=== PATIENT | female | born 1955 | race Asian ===

== ENCOUNTER 2017-03-30 16:20 | Emergency (ER) | payer BC, OTHER ==
[~2017-03-30] VITALS: Ht 160 cm; Wt 66.6 kg
[~2017-03-30 16:20] MED LIST: ALLO300T2 PO; CIPR-193 PO; LOSA50TA6 PO; METO-448 PO; NIFE60TA36 PO; SEVE800T10 PO; VANC1FRO2 IV
[2017-03-30 16:32] VITALS: Ht 160 cm; Wt 66.6 kg
[2017-03-30] MEDS ORDERED: ONDANSETRON (ODT) 4 MG TAB ODT STA (20:17)
[2017-03-30] MEDS ORDERED: HYDROCODONE/APAP (10/325) TAB PO ONE (20:30)
[2017-03-30 20:37] LABS: ADD SCAN DIFF NO
[2017-03-30 20:42] LABS: BASOPHIL # 0.2 10^3/ul (0.0-0.1); BASOPHILS % 1.2 % (0.0-2.0); EOSINOPHILS # 0.5 10^3/ul (0.0-0.5); EOSINOPHILS % 3.5 % (0.0-7.0); HEMATOCRIT 36.2 % (37.0-47.0); HEMOGLOBIN 11.3 g/dl (12.0-16.0); LYMPHOCYTES # 2.8 10^3/ul (0.8-2.9); LYMPHOCYTES % 20.6 % (15.0-51.0); MEAN CORPUSCULAR HEMOGLOBIN 31.1 pg (29.0-33.0); MEAN CORPUSCULAR HGB CONC 31.2 g/dl (32.0-37.0); MEAN CORPUSCULAR VOLUME 99.7 fl (82.0-101.0); MEAN PLATELET VOLUME 9.2 fl (7.4-10.4); MONOCYTE # 1.2 10^3/ul (0.3-0.9); MONOCYTES % 8.5 % (0.0-11.0); NEUTROPHILS % 65.8 % (39.0-77.0); PLATELET COUNT 338 10^3/UL (140-415); RED BLOOD COUNT 3.63 10^6/ul (4.20-5.40); RED CELL DISTRIBUTION WIDTH 13.5 % (11.5-14.5); WHITE BLOOD COUNT 13.7 10^3/ul (4.8-10.8)
[2017-03-30] MEDS ORDERED: LORA10TA3 PO (20:57)
[2017-03-30 21:04] LABS: INR 0.99; PROTIME 13.1 Sec (12.2-14.2)
[2017-03-30 21:05] LABS: PARTIAL THROMBOPLASTIN TIME 35.1 Sec (25.0-35.0)
[2017-03-30 21:07] LABS: ALBUMIN 4.5 g/dl (3.3-4.9)
[2017-03-30 21:08] LABS: POTASSIUM 4.3 mmol/L (3.5-5.1)
[2017-03-30 21:10] LABS: ALBUMIN/GLOBULIN RATIO 0.78; BILIRUBIN,INDIRECT 0.1 mg/dl (0-1.1); BILIRUBIN,TOTAL 0.1 mg/dl (0.2-1.3); CALCIUM 8.9 mg/dl (8.4-10.2); CREATININE 7.58 mg/dl (0.44-1.00); TOTAL PROTEIN 10.2 g/dl (6.1-8.1)
--- NOTE | 2017-03-30 21:39 | RADRPT ---
PROCEDURE: XR Chest. CLINICAL INDICATION: Right chest wall pain. TECHNIQUE: Single frontal view. COMPARISON: 09/09/2016. FINDINGS: There is mild atelectasis at the right lung base. The lungs are otherwise clear. The heart is mildly enlarged. There is no pleural effusion. There is no pneumothorax. IMPRESSION: 1. Mild right basilar atelectasis. 2. Mild cardiomegaly. 3. Otherwise normal chest x-ray. RPTAT: QQ .Omar Mg MD, Date Time Electronically viewed and signed by .Omar Mg MD, on 03/30/2017 21:38 .R/
[2017-03-30 21:40] VITALS: TEMP 98.1
[2017-03-30] MEDS ORDERED: HYDR-902 PO (21:43)
--- NOTE | 2017-03-30 21:44 | ERD ---
ER Documentation Chief Complaint Date/Time DATE: 03/30/17 TIME: 21:44 Chief Complaint RIGHT FLANK PAIN ONSET LAST TUESDAY EVENNING, ON DIALYSIS. SOB HPI Patient is a 61-year-old female with breast cancer, anemia, and dialysis who presents with right-sided rib pain. The symptoms started on Tuesday. The patient denies trauma. She has had no rash. She has had no recent fevers. The patient tried Tylenol. She had dialysis this morning. Upon review of old medical records this is the patient's fifth visit to the ER since 2016. Patient does have a primary doctor. Her oncologist wanted her to get laboratory studies checked and she came with a list of labs that needed checking. ROS All systems reviewed and are negative except as per history of present illness. Medications Home Meds Active Scripts Hydrocodone/Acetaminophen ([place] 10-325 Tablet) 1 Each Tablet, 1 TAB PO Q6H Y for PAIN, #7 TAB Prov:MUAS SENIOR MD 03/30/17 Sevelamer Hcl* (Renagel*) 800 Mg Tablet, 3200 MG PO WITH MEALS for 30 Days, TAB Prov:MACIE TAVARES V. RESIDENT CARE COORDINATOR 09/13/16 Reported Medications Loratadine* (Loratadine*) 10 Mg Tablet, 10 MG PO DAILY, #30 TAB 03/30/17 Metoprolol Tartrate* (Lopressor*) 25 Mg Tab, 25 MG PO DAILY, #60 TAB 09/09/16 Discontinued Reported Medications Allopurinol* (Allopurinol*) 300 Mg Tablet, 300 MG PO DAILY, TAB 09/09/16 Nifedipine* (Adalat CC*) 60 Mg Tablet.sa, 60 MG PO DAILY, #30 TAB.SA 09/09/16 Losartan Potassium* (Losartan Potassium*) 50 Mg Tablet, 50 MG PO DAILY, TAB 09/09/16 Discontinued Scripts Ciprofloxacin Hcl* (Ciprofloxacin Hcl*) 250 Mg Tablet, 250 MG PO DAILY@06 for 12 Days, TAB Cipro 250mg po Daily until last day 09/24/16 Prov:MACIE TAVARES V. RESIDENT CARE COORDINATOR 09/13/16 Vancomycin/0.9 % Sod Chloride (Vancomycin 1 G/200Ml-0.9% NaCl) 1 Gm/200 Ml Froz.piggy, 1 GM IV Q96H for 25 Days Vancomycin IV 1GM IVPB Q96H to be given at HD center by HD nurse for total 4 weeks until last date: . Prov:MACIE TAVARES V. SUSIE 09/13/16 Allergies Allergies: Coded Allergies: adhesive tape (Unverified Allergy, Unknown, 03/30/17) PMhx/Soc History of Surgery: No Anesthesia Reaction: No Hx Neurological Disorder: No Hx Respiratory Disorders: No Hx Cardiac Disorders: No Hx Psychiatric Problems: No Hx Miscellaneous Medical Probl: Yes ( Anemia, R breast CA, Dialysis) Hx Alcohol Use: No Hx Substance Use: No Hx Tobacco Use: No Smoking Status: Never smoker FmHx Family History: diabetes Physical Exam Vitals Vital Signs Date Time Temp Pulse Resp B/P Pulse Ox O2 Delivery O2 Flow Rate FiO2 03/30/17 21:55 83 18 119/81 95 Room Air 03/30/17 21:40 98.1 81 18 119/81 95 03/30/17 16:32 98.1 97 20 127/81 99 Physical Exam Const: Mild distress secondary to pain Head: Atraumatic Eyes: Normal Conjunctiva ENT: Normal External Ears, Nose and Mouth. Neck: Full range of motion..~ No meningismus. Resp: Clear to auscultation bilaterally Cardio: Regular rate and rhythm, no murmurs, tenderness to the chest wall to the right lateral ribs Abd: Soft, non tender, non distended. Normal bowel sounds Skin: No petechiae or rashes Back: No midline or flank tenderness Ext: No cyanosis, or edema Neur: Awake and alert Psych: Normal Mood and Affect Result Diagram: 03/30/17201903/30/172019 Results 24 hrs Laboratory Tests Test 03/30/17 20:20 White Blood Count 13.710^3/ul Red Blood Count 3.6310^6/ul Hemoglobin 11.3g/dl Hematocrit 36.2% Mean Corpuscular Volume 99.7fl Mean Corpuscular Hemoglobin 31.1pg Mean Corpuscular Hemoglobin Concent 31.2g/dl Red Cell Distribution Width 13.5% Platelet Count 88014^3/UL Mean Platelet Volume 9.2fl Neutrophils % 65.8% Lymphocytes % 20.6% Monocytes % 8.5% Eosinophils % 3.5% Basophils % 1.2% Nucleated Red Blood Cells % 0.0/100WBC Neutrophils # 9.010^3/ul Lymphocytes # 2.810^3/ul Monocytes # 1.210^3/ul Eosinophils # 0.510^3/ul Basophils # 0.210^3/ul Nucleated Red Blood Cells # 0.010^3/ul Prothrombin Time 13.1Sec Prothrombin Time Ratio 1.0 INR International Normalized Ratio 0.99 Activated Partial Thromboplast Time 35.1Sec Sodium Level 142mmol/L Potassium Level 4.3mmol/L Chloride Level 92mmol/L Carbon Dioxide Level 30mmol/L Anion Gap 24 Blood Urea Nitrogen 29mg/dl Creatinine 7.58mg/dl Glucose Level 101mg/dl Calcium Level 8.9mg/dl Total Bilirubin 0.1mg/dl Direct Bilirubin 0.00mg/dl Indirect Bilirubin 0.1mg/dl Gamma Glutamyl Transpeptidase 52IU/L Aspartate Amino Transf (AST/SGOT) 29IU/L Alanine Aminotransferase (ALT/SGPT) 39IU/L Alkaline Phosphatase 145IU/L Lactate Dehydrogenase 472IU/L Total Protein 10.2g/dl Albumin 4.5g/dl Globulin 5.70g/dl Albumin/Globulin Ratio 0.78 Lipase 435U/L Carcinoembryonic Antigen 3.0ng/ml Current Medications Medications (Trade) Dose Ordered Sig/Shweta Route PRN Reason Start Time Stop Time Status Last Admin Dose Admin Acetaminophen/ Hydrocodone Bitart ([place] ()) 1 tab ONCE ONCE PO 03/30/17 20:30 03/30/17 20:31 DC 03/30/17 20:29 Ondansetron HCl (Zofran Odt) 4 mg ONCE STAT ODT 03/30/17 20:17 03/30/17 20:22 DC 03/30/17 20:27 Procedures/MDM EKG read by me: Rate/Rhythm: Sinus tachycardia rate of 102 Intervals: Normal Impression: Tachycardia without ischemia Chest x-ray shows no pneumonia or pneumothorax per radiology. Patient is a 61-year-old female presents with right-sided chest wall pain. There is no sign of rash. The laboratory studies are normal. The patient has an x-ray which shows no signs of pneumonia or pneumothorax. She feels better for [place]. At this point I doubt acute coronary syndrome, pneumonia, pneumothorax, pulmonary embolism, or aortic dissection. The patient will need close follow-up with the primary doctor within 24-48 hours. She can return sooner for any worsening symptoms. Departure Diagnosis: Primary Impression: Rib pain Additional Impressions: Anemia in chronic kidney disease Chronic renal failure Chronic kidney disease stage: unspecified stage Qualified Code: N18.9 - Chronic renal failure, unspecified stage Condition: Fair Patient Instructions: Chest Pain, Uncertain Cause Referrals: Your doctor Additional Instructions: Call your primary care doctor TOMORROW for an appointment during the next 1-2 days.See the doctor sooner or return here if your condition worsens before your appointment time. MUSA SENIOR MD March 30, 2017 21:44
[2017-03-30 21:55] VITALS: BP 119/81; PULSE 83; RESP 18
== END 2017-03-30 21:55 | disposition home or self-care (01) ==
LOC: E/R 16:20
DX: R07.81 Pleurodynia (principal); N18.9 Chronic kidney disease, unspecified; D64.9 Anemia, unspecified; Z99.2 Dependence on renal dialysis; Z85.3 Personal history of malignant neoplasm of breast
CPT/HCPCS: 36415; 71010; 80053; 82378; 82977; 83615; 83690; 85025; 85610; 85730; 86300; 93005

== ENCOUNTER 2017-08-10 18:39 | Inpatient (IN) | payer BC, OTHER ==
[~2017-08-10] VITALS: Ht 160 cm; Wt 68.5 kg
[~2017-08-10 18:39] MED LIST changes: -ALLO300T2 PO; -CIPR-193 PO; +HYDR-902 PO; +LORA10TA3 PO; -LOSA50TA6 PO; -NIFE60TA36 PO; -VANC1FRO2 IV
[2017-08-10 18:57] VITALS: Ht 160 cm; Wt 68.5 kg
[2017-08-10] MEDS ORDERED: morphine 4 MG/ML VIAL IV STA (19:42)
[2017-08-10] MEDS ORDERED: ONDANSETRON 4 MG INJ IV STA (19:42)
--- NOTE | 2017-08-10 19:53 | ERD ---
ER Documentation Chief Complaint Date/Time DATE: 08/10/17 TIME: 19:49 Chief Complaint left shoulder pain x1week HPI 61-year-old female presents here in emergency department for complaints of left shoulder pain for one week now. Patient describes the pain sharp pain, radiates from her left shoulder to the left arm, left neck area and left chest area. Patient was given Rx for naproxen and baclofen, was in a different emergency department 2 days ago, had CT cervical spine done, also had x-rays done but did not bring that resolved. Patient denies any numbness or tingling. Patient does complain of chills but denies any fever. Patient denies any other symptoms. Patient has history of renal insufficiency, is currently on dialysis ROS All systems reviewed and are negative except as per history of present illness. Medications Home Meds Active Scripts Hydrocodone/Acetaminophen ([place] 10-325 Tablet) 1 Each Tablet, 1 TAB PO Q6H Y for PAIN, #7 TAB Prov:MUSA SENIOR MD 03/30/17 Sevelamer Hcl* (Renagel*) 800 Mg Tablet, 3200 MG PO WITH MEALS for 30 Days, TAB Prov:MACIE TAVARES NP 09/13/16 Reported Medications Loratadine* (Loratadine*) 10 Mg Tablet, 10 MG PO DAILY, #30 TAB 03/30/17 Metoprolol Tartrate* (Lopressor*) 25 Mg Tab, 25 MG PO DAILY, #60 TAB 09/09/16 Allergies Allergies: Coded Allergies: adhesive tape (Unverified Allergy, Unknown, 03/30/17) PMhx/Soc History of Surgery: No Anesthesia Reaction: No Hx Neurological Disorder: No Hx Respiratory Disorders: No Hx Cardiac Disorders: No Hx Psychiatric Problems: No Hx Miscellaneous Medical Probl: Yes ( Anemia, R breast CA, Dialysis) Hx Alcohol Use: No Hx Substance Use: No Hx Tobacco Use: No FmHx Family History: No coronary disease, No diabetes, No other Physical Exam Vitals Vital Signs Date Time Temp Pulse Resp B/P Pulse Ox O2 Delivery O2 Flow Rate FiO2 08/10/17 18:57 98.3 100 20 114/68 95 Physical Exam GENERAL: The patient is well developed and appropriate for usual state of health, in no apparent distress. CHEST: Clear to auscultation bilaterally. There are no rales, wheezes or rhonchi. HEART: Regular rate and rhythm. No murmurs, clicks, rubs or gallops. No S3 or S4. ABDOMEN: Soft, nontender and nondistended. Good bowel sounds. No rebound or guarding. No gross peritonitis. No gross organomegaly or masses. No Howell sign or McBurney point tenderness. BACK: No midline or flank tenderness. EXTREMITIES: Tenderness on palpation on the left shoulder area, worse upon range of motion, mild tenderness on palpation of left upper chest, clavicular area, and left upper back area.Equal pulses bilaterally. There is no peripheral clubbing, cyanosis or edema. No focal swelling or erythema. Full range of motion. Grossly neurovascularly intact. NEURO: Alert and oriented. Cranial nerves 2-12 intact. Motor strength in all 4 extremities with 5/5 strength. Sensation grossly intact. Normal speech and gait. SKIN: There is no apparent rash or petechia. The skin is warm and dry. HEMATOLOGIC AND LYMPHATIC: There is no evidence of excessive bruising or lymphedema. No gross cervical, axillary, or inguinal lymphadenopathy. Result Diagram: 08/14/17 0537 08/14/17 0537 Results 24 hrs Laboratory Tests Test 08/10/17 21:50 08/10/17 23:42 White Blood Count 18.510^3/ul Red Blood Count 3.2610^6/ul Hemoglobin 10.5g/dl Hematocrit 32.0% Mean Corpuscular Volume 98.2fl Mean Corpuscular Hemoglobin 32.2pg Mean Corpuscular Hemoglobin Concent 32.8g/dl Red Cell Distribution Width 13.5% Platelet Count 94216^3/UL Mean Platelet Volume 10.2fl Neutrophils % 75.0% Lymphocytes % 12.4% Monocytes % 9.8% Eosinophils % 1.5% Basophils % 0.5% Nucleated Red Blood Cells % 0.0/100WBC Neutrophils # 13.910^3/ul Lymphocytes # 2.310^3/ul Monocytes # 1.810^3/ul Eosinophils # 0.310^3/ul Basophils # 0.110^3/ul Nucleated Red Blood Cells # 0.010^3/ul Sodium Level 141mmol/L Potassium Level 4.4mmol/L Chloride Level 92mmol/L Carbon Dioxide Level 36mmol/L Anion Gap 17 Blood Urea Nitrogen 25mg/dl Creatinine 6.65mg/dl Glucose Level 102mg/dl Calcium Level 8.5mg/dl Total Bilirubin 0.0mg/dl Direct Bilirubin 0.00mg/dl Indirect Bilirubin 0.0mg/dl Aspartate Amino Transf (AST/SGOT) 27IU/L Alanine Aminotransferase (ALT/SGPT) 29IU/L Alkaline Phosphatase 149IU/L Creatine Kinase 64IU/L Creatine Kinase Index 0.3 Creatinine Kinase MB (Mass) < 0.22ng/ml Troponin I < 0.012ng/ml Total Protein 8.7g/dl Albumin 4.2g/dl Globulin 4.50g/dl Albumin/Globulin Ratio 0.93 Lactic Acid Level 0.9mmol/L Current Medications Medications (Trade) Dose Ordered Sig/Shweta Route PRN Reason Start Time Stop Time Status Last Admin Dose Admin Morphine Sulfate (morphine) 4 mg ONCE STAT IV 08/10/17 19:42 08/10/17 19:44 DC 08/10/17 21:03 Ondansetron HCl 4 mg 4 mg ONCE STAT IV 08/10/17 19:42 08/10/17 19:44 DC 08/10/17 21:03 Cefepime HCl (Maxipime 1gm/50 ml (Pmx)) 50 ml @ 100 mls/hr ONCE ONCE IVPB 08/11/17 01:00 08/11/17 01:29 DC 08/11/17 02:22 EKG was done, read by me and is sinus tachycardia at a rate of 105, normal axis , there is no ST changes or changes in the EKG that indicates any cardiac emergencies at this time. Patient's EKG was also reviewed by Dr. Otto. Impression: no acute findings on EKG PROCEDURE: XR Shoulder. CLINICAL INDICATION: 61 years of age, female. Left shoulder pain. TECHNIQUE: Three views of the left shoulder. COMPARISON: None available. FINDINGS: Negative for evidence of acute fracture or dislocation. Acromioclavicular joint appears normal. Coracoclavicular interval appears normal. There are no periarticular calcifications. There are surgical clips in the left axilla. Nonspecific opacity at the left lung base is incompletely evaluated. IMPRESSION: Negative for evidence of acute fracture or dislocation of the left shoulder. Cause for left shoulder pain is not evident. Left lung base opacity is incompletely imaged. RPTAT: HCTS Physician Sirena Date Time Electronically viewed and signed by Nenita Preston Physician on 08/10/2017 21: 25 CS/ CC: PATRIZIA IVAN NP PROCEDURE: CT chest without contrast. CLINICAL INDICATION: Pain TECHNIQUE: Noncontrast CT of the chest was performed utilizing axial images with reconstructions in sagittal and coronal planes. The administered radiation dose is CTDI 13.6 mGy, DLP 534 mGy-cm. One or more of the following dose reduction techniques were used: automated exposure control, adjustment of the mA and/or kV according to patient size and/or use of iterative reconstruction technique. COMPARISON: No pertinent prior examinations are submitted for comparison. FINDINGS: Chest: There is a 5 mm subpleural nodular density in the right lower lobe on image 84 of series 3. There is a 7 mm subpleural nodular density in the left upper lobe on image 62 of series 3. A few other tiny subpleural nodular densities are scattered throughout the lungs. Some mild atelectasis is noted in the lung bases. No pleural effusions are seen. The tracheobronchial tree is unremarkable. There is mild cardiomegaly. Coronary artery calcifications are noted. No pericardial effusions are seen. There is no mediastinal or hilar adenopathy. There is a 1.9 x 1.4 cm mildly hyperdense lesion within the midline neck extending through the thyroid cartilage. The superior most aspect of the lesion is not included in the field of view. The tissue has a similar appearance to the thyroid. The thyroid is noted to be somewhat small and lobulated. There is also a 5 x 9 mm nodular density within the posterior aspect of the proximal trachea on the right. Some mild subcutaneous fat infiltration and enlargement of the pectus musculature is noted in the left chest, surrounding the medial head of the clavicle and extending slightly more inferiorly. Visualized Upper abdomen: An atrophic left kidney with chronic hydronephrosis is noted. Hepatic steatosis is noted. Osseous structures: Unremarkable. No definite destructive changes of the clavicle are seen. IMPRESSION: Minimal inflammatory changes and enlargement of the left pectus musculature along the medial head of the clavicle and manubrium. Please correlate for infection in the region. Although no destructive osseous changes are seen, osteomyelitis of the clavicle cannot be entirely excluded. Subpleural lung nodules measuring up to 7 mm. Follow-up can be obtained as per flasher Society criteria. Low risk: CT at 3-[address] at 18-24 mos. High risk: CT at 3-[address] at 18-24 mos. Likely accessory thyroid tissue within the anterior midline neck which is partially visualized. Small nodular density within the posterior aspect of the proximal trachea on the right. Correlation with endoscopy is suggested. RPTAT: HIKT .Adrian Martin MD, Date Time Electronically viewed and signed by .Adrian Martin MD, on 08/11/2017 00:46 .T/ CC: PATRIZIA IVAN ELECTRICIAN HELPER Procedures/MDM Medical decision making: Patient's elevated white count, chills and fever on-and -off, inflammation in the left chest area near the clavicle high suspicion for possible osteomyelitis of the clavicle. Further evaluation and management necessary, as per discussion with my attending physician, Dr Wild patient will be admitted to the hospital, will be given IV cefepime 1 g here in the emergency department. Patient is stable at this time. Not septic at this time. Departure Diagnosis: Primary Impression: Clavicle pain Additional Impression: Leukocytosis Leukocytosis type: unspecified Qualified Code: D72.829 - Leukocytosis, unspecified type Condition: Fair PATRIZIA IVAN NP Aug 10, 2017 19:53
--- NOTE | 2017-08-10 21:25 | RADRPT ---
PROCEDURE: XR Shoulder. CLINICAL INDICATION: 61 years of age, female. Left shoulder pain. TECHNIQUE: Three views of the left shoulder. COMPARISON: None available. FINDINGS: Negative for evidence of acute fracture or dislocation. Acromioclavicular joint appears normal. Coracoclavicular interval appears normal. There are no periarticular calcifications. There are surgical clips in the left axilla. Nonspecific opacity at the left lung base is incomplete ly evaluated. IMPRESSION: Negative for evidence of acute fracture or dislocation of the left shoulder. Cause for left shoulder pain is not evident. Left lung base opacity is incompletely imaged. RPTAT: HCTS Physician Sirena Date Time Electronically viewed and signed by Physician Sirena on 08/10/2017 21:25 /
--- NOTE | 2017-08-10 21:27 | RADRPT ---
PROCEDURE: Portable chest x-ray. CLINICAL INDICATION: 61 years of age, female. Pain. TECHNIQUE: Portable AP view of the chest. COMPARISON: March 30, 2017 FINDINGS: Tortuous aorta. Borderline heart size. Mediastinal contours are otherwise normal and stable. Linear atelectasis or scar right lung base is unchanged. Mild linear opacity left lung base is also unchanged and likely represents atelectasis or scar. Lungs are otherwise clear. Negative for pleural effusion or pneumothorax. No acute bony abnormality. Surgical clips in bilateral axilla. IMPRESSION: Negative for evidence of an acute chest process. Linear opacities at the right greater than left lung bases are unchanged from prior exam and may rep resent atelectasis or scar. RPTAT: HCTS Physician Sirena Date Time Electronically viewed and signed by Physician Sirena on 08/10/2017 21:27 /
[2017-08-10 21:36] LABS: ABNORMAL IP MESSAGE 1; BASOPHIL # 0.1 10^3/ul (0.0-0.1); BASOPHILS % 0.5 % (0.0-2.0); EOSINOPHILS # 0.3 10^3/ul (0.0-0.5); EOSINOPHILS % 1.5 % (0.0-7.0); HEMOGLOBIN 10.5 g/dl (12.0-16.0); LYMPHOCYTES # 2.3 10^3/ul (0.8-2.9); LYMPHOCYTES % 12.4 % (15.0-51.0); MEAN CORPUSCULAR HEMOGLOBIN 32.2 pg (29.0-33.0); MEAN CORPUSCULAR HGB CONC 32.8 g/dl (32.0-37.0); MEAN CORPUSCULAR VOLUME 98.2 fl (82.0-101.0); MEAN PLATELET VOLUME 10.2 fl (7.4-10.4); MONOCYTE # 1.8 10^3/ul (0.3-0.9); MONOCYTES % 9.8 % (0.0-11.0); NEUTROPHIL # 13.9 10^3/ul (1.6-7.5); PLATELET COUNT 322 10^3/UL (140-415); RED BLOOD COUNT 3.26 10^6/ul (4.20-5.40); RED CELL DISTRIBUTION WIDTH 13.5 % (11.5-14.5); WHITE BLOOD COUNT 18.5 10^3/ul (4.8-10.8)
[2017-08-10 21:38] LABS: POSITIVE DIFF @See below
[2017-08-10 22:39] LABS: ALANINE AMINOTRANSFERASE 29 IU/L (13-69); ALBUMIN 4.2 g/dl (3.3-4.9); ALBUMIN/GLOBULIN RATIO 0.93; ALKALINE PHOSPHATASE 149 IU/L (42-121); ANION GAP 17 (8-16); ASPARTATE AMINO TRANSFERASE 27 IU/L (15-46); BLOOD UREA NITROGEN 25 mg/dl (7-20); CALCIUM 8.5 mg/dl (8.4-10.2); CARBON DIOXIDE 36 mmol/L (21-31); CHLORIDE 92 mmol/L (97-110); CREATINE KINASE 64 IU/L (23-200); CREATININE 6.65 mg/dl (0.44-1.00); GLUCOSE 102 mg/dl (70-220); POTASSIUM 4.4 mmol/L (3.5-5.1); SODIUM 141 mmol/L (135-144); TOTAL PROTEIN 8.7 g/dl (6.1-8.1)
[2017-08-10 22:52] LABS: CK-MB < 0.22 ng/ml (0.0-2.4); TROPONIN-I < 0.012 ng/ml (0.00-0.12)
--- NOTE | 2017-08-11 00:47 | RADRPT ---
PROCEDURE: CT chest without contrast. CLINICAL INDICATION: Pain TECHNIQUE: Noncontrast CT of the chest was performed utilizing axial images with reconstructions i n sagittal and coronal planes. The administered radiation dose is CTDI 13.6 mGy, DLP 534 mGy-cm. One or more of the following dose reduction techniques were used: automated exposure control, adjustmen t of the mA and/or kV according to patient size and/or use of iterative reconstruction technique. COMPARISON: No pertinent prior examinations are submitted for comparison. FINDINGS: Chest: There is a 5 mm subpleural nodular density in the right lower lobe on image 84 of series 3. There is a 7 mm subpleural nodular density in the left upper lobe on image 62 of series 3. A few other tiny subpleural nodular densities are scattered throughout the lungs. Some mild atelectasis is noted in t he lung bases. No pleural effusions are seen. The tracheobronchial tree is unremarkable. There is mild cardiomegaly. Coronary artery calcifications are noted. No pericardial effusions are s een. There is no mediastinal or hilar adenopathy. There is a 1.9 x 1.4 cm mildly hyperdense lesion within the midline neck extending through the thyro id cartilage. The superior most aspect of the lesion is not included in the field of view. The tissu e has a similar appearance to the thyroid. The thyroid is noted to be somewhat small and lobulated. There is also a 5 x 9 mm nodular density within the posterior aspect of the proximal trachea on the right. Some mild subcutaneous fat infiltration and enlargement of the pectus musculature is noted in the le ft chest, surrounding the medial head of the clavicle and extending slightly more inferiorly. Visualized Upper abdomen: An atrophic left kidney with chronic hydronephrosis is noted. Hepatic stea tosis is noted. Osseous structures: Unremarkable. No definite destructive changes of the clavicle are seen. IMPRESSION: Minimal inflammatory changes and enlargement of the left pectus musculature along the medial head of the clavicle and manubrium. Please correlate for infection in the region. Although no destructive o sseous changes are seen, osteomyelitis of the clavicle cannot be entirely excluded. Subpleural lung nodules measuring up to 7 mm. Follow-up can be obtained as per flasher Society crite [place]. Low risk: CT at 3-[address] at 18-24 mos. High risk: CT at 3-[address] at 18-2 4 mos. Likely accessory thyroid tissue within the anterior midline neck which is partially visualized. Small nodular density within the posterior aspect of the proximal trachea on the right. Correlation with endoscopy is suggested. RPTAT: HIKT .Adrian Martin MD, MD Date Time Electronically viewed and signed by .Adrian Martin MD, on 08/11/2017 00:46 .T/
[2017-08-11] MEDS ORDERED: CEFEPIME 1GM/50 ML (PMX) 50 ML IVPB ONE (01:00)
[2017-08-11] MEDS ORDERED: ACETAMINOPHEN 325 MG TAB PO PRN ×2 (02:00→02:30)
[2017-08-11] MEDS ORDERED: ONDANSETRON 4 MG INJ IV PRN ×2 (02:00→02:30)
[2017-08-11] MEDS ORDERED: DOCUSATE SODIUM 100 MG CAP PO PRN (02:30)
[2017-08-11] MEDS ORDERED: FAMOTIDINE 20 MG INJ IV SCH (02:30)
[2017-08-11] MEDS ORDERED: morphine 2 MG INJ IV PRN ×2 (02:30)
[2017-08-11] MEDS ORDERED: VANCOMYCIN IV PER PHARMACY XX SCH (02:30)
[2017-08-11] MEDS ORDERED: NACL 0.9% 3 ML SYG IV SCH (02:30)
[2017-08-11] MEDS ORDERED: VANCOMYCIN 1.25 GM in SOD CHLORIDE 0.9% 250 ML IVPB ONE (03:00)
[2017-08-11 06:32] VITALS: TEMP 98.8
[2017-08-11 09:05] VITALS: BP 113/67; PULSE 107; RESP 18
--- NOTE | 2017-08-11 09:12 | PN ---
Date/Time of Note Date/Time of Note DATE: 08/11/17 TIME: 09:09 Assessment/Plan VTE Prophylaxis VTE Prophylaxis Intervention: SCD's Lines/Catheters IV Catheter Type (from Nrsg): Saline Lock Assessment/Plan Assessment/Plan 61 yo F with h/o ESRD on HD, DM2 presents with several days of painful swelling of proximal L clavicle and chills with HD. Concern for bacteremia with resultant clavicular OM PLAN renal cs for HD cont empiric vanc blood cultures in process ortho eval ID eval SSI for DM2 BP control renal diet Subjective 24 Hr Interval Summary Free Text/Dictation Pt states her L upper collar bone has been bothering her for the past week, states she's had chills during past 3 HD sessions and her graft site has possibly appeared swollen Exam/Review of Systems Vital Signs Vitals Vital Signs Date Time Temp Pulse Resp B/P Pulse Ox O2 Delivery O2 Flow Rate FiO2 08/11/17 06:32 98.8 98 18 98/78 94 Room Air Exam nad +fullness of L proximal clavicle, +TTP RUE graft with palpable thrill +BS no edema Results Result Diagram: 08/10/17214908/10/172149 Results 24 hrs Laboratory Tests Test 08/10/17 21:50 08/10/17 23:42 White Blood Count 18.5 #H Red Blood Count 3.26 L Hemoglobin 10.5 L Hematocrit 32.0 L Mean Corpuscular Volume 98.2 Mean Corpuscular Hemoglobin 32.2 Mean Corpuscular Hemoglobin Concent 32.8 Red Cell Distribution Width 13.5 Platelet Count 322 Mean Platelet Volume 10.2 Neutrophils % 75.0 Lymphocytes % 12.4 L Monocytes % 9.8 Eosinophils % 1.5 Basophils % 0.5 Nucleated Red Blood Cells % 0.0 Neutrophils # 13.9 H Lymphocytes # 2.3 Monocytes # 1.8 H Eosinophils # 0.3 Basophils # 0.1 Nucleated Red Blood Cells # 0.0 Sodium Level 141 Potassium Level 4.4 Chloride Level 92 L Carbon Dioxide Level 36 H Anion Gap 17 H Blood Urea Nitrogen 25 H Creatinine 6.65 H Glucose Level 102 Calcium Level 8.5 Total Bilirubin 0.0 L Direct Bilirubin 0.00 Indirect Bilirubin 0.0 Aspartate Amino Transf (AST/SGOT) 27 Alanine Aminotransferase (ALT/SGPT) 29 Alkaline Phosphatase 149 H Creatine Kinase 64 Creatine Kinase Index 0.3 Creatinine Kinase MB (Mass) < 0.22 Troponin I < 0.012 Total Protein 8.7 H Albumin 4.2 Globulin 4.50 H Albumin/Globulin Ratio 0.93 Lactic Acid Level 0.9 Medications Medications Current Medications Ondansetron HCl (Zofran Inj) 4 mg Q6H PRN IV NAUSEA AND/OR VOMITING; Start at 02:30 Acetaminophen (Tylenol Tab) 650 mg Q6H PRN PO PAIN LEVEL 1-3 OR FEVER; Start at 02:30 Docusate Sodium (Colace) 100 mg Q12H PRN PO CONSTIPATION; Start 08/11/17 at 02: 30 Bisacodyl (Dulcolax) 5 mg DAILY PRN PO CONSTIPATION; Start 08/11/17 at 02:30 Famotidine (Pepcid Iv) 20 mg Q24H IV Last administered on 08/11/17t 03:01; Admin Dose 20 MG; Start 08/11/17 at 02:30 Morphine Sulfate (morphine) 2 mg Q4H PRN IV PAIN LEVEL 1-5; Start 08/11/17 at 02:30 Hydromorphone HCl (Dilaudid) 0.5 mg Q4H PRN IV PAIN LEVEL 6-10; Start 08/11/17 at 02:30 SUPRIYA BROWN MD Aug 11, 2017 09:12
--- NOTE | 2017-08-11 09:36 | HP ---
Date/Time of Note Date/Time of Note DATE: 08/11/17 TIME: 09:27 Assessment/Plan VTE Prophylaxis VTE Prophylaxis Intervention: SCD's Lines/Catheters IV Catheter Type (from [facility]): [place] Assessment/Plan Chief Complaint/Hosp Course This is a 61-year-old male being admitted to the [facility] floor for: #1 suspected osteomyelitis: White blood cell count 18,000. 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 The current episode the patient on IV vancomycin. Patient also started cefepime in the ED. Will obtain an MRI of the clavicle without contrast secondary to patient's end-stage renal disease. Will consult infectious disease. Will also obtain an echocardiogram for completeness sake to rule out any signs of any endocarditis. #2 End-stage renal disease: Patient is on dialysis. Will consult nephrology. Avoid nephrotoxic agents. Will order MRI without contrast to evaluate the clavicle in the a.m. #3 gout: We will check uric acid level #4 normocytic anemia: Likely secondary to underlying end-stage renal disease. Will consult nephrology to see whether patient is a candidate for Epogen. #5 DVT GI prophylaxis: SCDs, as a daisy Further treatment strategy will be implemented as per the clinical course Problems: HPI/ROS Admit Date/Time Admit Date/Time Aug 11, 2017 at 01:58 Hx of Present Illness Chief complaint: Left shoulder pain for 1 week This is a 61-year-old female presents here in emergency department for complaints of left shoulder pain for one week now. Patient describes the pain sharp pain, radiates from her left shoulder to the left arm, left neck area and left chest area. Patient was given pressures and for naproxen and baclofen, was in a different emergency department 2 days ago, had CT cervical spine done, also had x-rays done but did not bring that resolved. Patient denies any numbness or tingling. Patient does complain of chills but denies any fever. Patient denies any other symptoms. Patient has history of renal insufficiency, is currently on dialysis Tuesday Allergies: Adhesive tape Medications: See JAN ROS Const: As per HPI Eyes : No pain discharge or redness or change in visual acuity ENT: No pain, sore throat, congestion, congestion, dysphagia or discharge Respiratory: No shortness of breath, cough, sputum, wheezing, or pleuritic pain Cardiovascular: No chest pain, palpitation, PND, or edema GI : no change in appetite, abdominal pain, nausea, vomiting, diarrhea, constipation, or change in the color his stool Genitourinary: No dysuria, hematuria, flank pain , discharge or CVA tenderness Musculoskeletal: As per HPI Skin: No rash, bruising or hives Neuro: No headache, dizziness, syncope, seizure, focal weakness Endocrine: No polyuria, polydipsia, temperature intolerance Psych: No hallucination, depression, anxiety or suicidal ideation PMH/Family/Social Past Medical History End-stage renal disease, gout, anemia, breast cancer Past Surgical History Right fistula, previous left fistula which is closed because it was not working , left breast mastectomy Family History Significant Family History: no pertinent family hx Social History Alcohol Use: none Smoking Status: Never smoker Drug Use: none Exam/Review of Systems Vital Signs Vitals Vital Signs Date Time Temp Pulse Resp B/P Pulse Ox O2 Delivery O2 Flow Rate FiO2 08/11/17 06:32 98.8 98 18 98/78 94 Room Air Exam Exam General: Patient is lying in bed in mild distress from pain in her shoulder HEENT: Atraumatic, normocephalic. The pupils are equal, round and reactive. Extraocular motor are intact Neck: Limited range of motion to the left secondary to pain Chest: Nontender Lungs: Clear to auscultation bilaterally no crackles rales or wheezing Heart: Normal S1-S2, Regular rhythm and rate. No murmur, S3, or S4 Abdomen: Soft , nontender, nondistended , bowel sounds are present. No guarding no rebound tenderness , No masses or organomegaly. No costovertebral temporal angle mass Extremities: Normal to inspection, no edema no cyanosis Neurologic: Normal mental status, speech normal, cranial nerves II through XII are intact, motor and sensory are intact, no focal weakness Musculoskeletal: Tenderness to palpation over the left clavicle as well as left lateral neck and upper back Skin: Right AV fistula Additional Comments PROCEDURE: CT chest without contrast. CLINICAL INDICATION: Pain TECHNIQUE: Noncontrast CT of the chest was performed utilizing axial images with reconstructions in sagittal and coronal planes. The administered radiation dose is CTDI 13.6 mGy, DLP 534 mGy-cm. One or more of the following dose reduction techniques were used: automated exposure control, adjustment of the mA and/or kV according to patient size and/or use of iterative reconstruction technique. COMPARISON: No pertinent prior examinations are submitted for comparison. FINDINGS: Chest: There is a 5 mm subpleural nodular density in the right lower lobe on image 84 of series 3. There is a 7 mm subpleural nodular density in the left upper lobe on image 62 of series 3. A few other tiny subpleural nodular densities are scattered throughout the lungs. Some mild atelectasis is noted in the lung bases. No pleural effusions are seen. The tracheobronchial tree is unremarkable. There is mild cardiomegaly. Coronary artery calcifications are noted. No pericardial effusions are seen. There is no mediastinal or hilar adenopathy. There is a 1.9 x 1.4 cm mildly hyperdense lesion within the midline neck extending through the thyroid cartilage. The superior most aspect of the lesion is not included in the field of view. The tissue has a similar appearance to the thyroid. The thyroid is noted to be somewhat small and lobulated. There is also a 5 x 9 mm nodular density within the posterior aspect of the proximal trachea on the right. Some mild subcutaneous fat infiltration and enlargement of the pectus musculature is noted in the left chest, surrounding the medial head of the clavicle and extending slightly more inferiorly. Visualized Upper abdomen: An atrophic left kidney with chronic hydronephrosis is noted. Hepatic steatosis is noted. Osseous structures: Unremarkable. No definite destructive changes of the clavicle are seen. IMPRESSION: Minimal inflammatory changes and enlargement of the left pectus musculature along the medial head of the clavicle and manubrium. Please correlate for infection in the region. Although no destructive osseous changes are seen, osteomyelitis of the clavicle cannot be entirely excluded. Subpleural lung nodules measuring up to 7 mm. Follow-up can be obtained as per flasher Society criteria. Low risk: CT at 3-[address] at 18-24 mos. High risk: CT at 3-[address] at 18-24 mos. Likely accessory thyroid tissue within the anterior midline neck which is partially visualized. Small nodular density within the posterior aspect of the proximal trachea on the right. Correlation with endoscopy is suggested. RPTAT: HIKT .Adrian Martin MD, Date Time Electronically viewed and signed by .Adrian Martin MD, on 08/11/2017 00:46 .T/ CC: PATRIZIA IVAN NP PROCEDURE: Portable chest x-ray. CLINICAL INDICATION: 61 years of age, female. Pain. TECHNIQUE: Portable AP view of the chest. COMPARISON: March 30, 2017 FINDINGS: Tortuous aorta. Borderline heart size. Mediastinal contours are otherwise normal and stable. Linear atelectasis or scar right lung base is unchanged. Mild linear opacity left lung base is also unchanged and likely represents atelectasis or scar. Lungs are otherwise clear. Negative for pleural effusion or pneumothorax. No acute bony abnormality. Surgical clips in bilateral axilla. IMPRESSION: Negative for evidence of an acute chest process. Linear opacities at the right greater than left lung bases are unchanged from prior exam and may represent atelectasis or scar. RPTAT: HCTS Physician Sirena Date Time Electronically viewed and signed by Physician Sirena on 08/10/2017 21: 27 CS/ CC: PATRIZIA IVAN MPROCEDURE: XR Shoulder. CLINICAL INDICATION: 61 years of age, female. Left shoulder pain. TECHNIQUE: Three views of the left shoulder. COMPARISON: None available. FINDINGS: Negative for evidence of acute fracture or dislocation. Acromioclavicular joint appears normal. Coracoclavicular interval appears normal. There are no periarticular calcifications. There are surgical clips in the left axilla. Nonspecific opacity at the left lung base is incompletely evaluated. IMPRESSION: Negative for evidence of acute fracture or dislocation of the left shoulder. Cause for left shoulder pain is not evident. Left lung base opacity is incompletely imaged. RPTAT: HCTS Nenita Preston Physician Date Time Electronically viewed and signed by Nenita Preston Physician on 08/10/2017 21: 25 CS/ CC: PATRIZIA IVAN PUBLIC RELATIONS ANALYST Labs Result Diagram: 08/10/17214908/10/172149 Medications Medications Current Medications Ondansetron HCl (Zofran Inj) 4 mg Q6H PRN IV NAUSEA AND/OR VOMITING; Start at 02:30 Acetaminophen (Tylenol Tab) 650 mg Q6H PRN PO PAIN LEVEL 1-3 OR FEVER; Start at 02:30 Docusate Sodium (Colace) 100 mg Q12H PRN PO CONSTIPATION; Start 08/11/17 at 02: 30 Bisacodyl (Dulcolax) 5 mg DAILY PRN PO CONSTIPATION; Start 08/11/17 at 02:30 Morphine Sulfate (morphine) 2 mg Q4H PRN IV PAIN LEVEL 1-5; Start 08/11/17 at 02:30 Hydromorphone HCl (Dilaudid) 0.5 mg Q4H PRN IV PAIN LEVEL 6-10; Start 08/11/17 at 02:30 RANJANA FERGUSON Aug 11, 2017 09:36
[2017-08-11] MEDS: HYDROmorphONE 1 MG/ML SYG IV PRN ×2 (10:38→22:02)
--- NOTE | 2017-08-11 11:34 | CONS ---
DATE OF ADMISSION: 08/11/2017 DATE OF CONSULTATION: 08/11/2017 REASON FOR CONSULTATION: End stage renal disease. HISTORY OF PRESENT ILLNESS: This is a 61-year-old female with a past medical history of end-stage renal disease on dialysis Tuesday, Tuesday, Tuesday with access of right AV fistula. The patient dialyzes in [place]. The patient also has a history of end-stage renal disease, history of anemia, history of breast cancer, who presents to [facility] with complaints of left shoulder pain for 1 week. The patient describes the pain as sharp, from left shoulder to left arm. The patient was given naproxen and baclofen for the pain in the emergency room a few days ago without any significant improvement. The patient denies any fevers or paresthesias. PAST MEDICAL HISTORY: As stated above. History of end-stage renal disease, gout, anemia. FAMILY HISTORY: Noncontributory. SOCIAL HISTORY: Does not drink, smoke, or do drugs. MEDICATION: Reviewed. REVIEW OF SYSTEMS: Fourteen point review of systems was conducted. Pertinent positives in HPI, otherwise negative. OBJECTIVE DATA: VITAL SIGNS: Blood pressures. 113/67, respirations 18, pulse 107, temperature 98.2. HEENT: Head is normocephalic. NECK: Supple. HEART: Regular rate. LUNGS: Diminished breath sounds at the base. On chest exam, positive tenderness to palpation of the left shoulder. ABDOMEN: Soft, nontender to palpation. No guarding. EXTREMITIES: Negative for clubbing, cyanosis. No edema. DERMATOLOGIC: Clean. No rashes. MUSCULOSKELETAL: No joint effusion. NEUROLOGIC: No focal deficits. LABORATORY: White count 18.5, hemoglobin 10.5, hematocrit 32.0. Platelet count is 322. Sodium 141, potassium 4.4, BUN 25, creatinine 6.65. IMPRESSION AND PLAN: This is a 61-year-old female who presents with: 1. End-stage renal disease. Patient is on dialysis Tuesday, Tuesday, Tuesday with access right AV fistula. Plan for dialysis tomorrow. We will dialyze for 3 hours, 3K bath, calcium 2.5, ultrafiltration as tolerated. 2. Anemia. Hemoglobin levels currently Will give Epogen with dialysis. 3. Mineral bone disorder. Monitor calcium and phosphorus levels. Will give phosphorus binders as needed. 4. Hypertension. Continue current blood pressure regimen. 5. Possible osteomyelitis left clavicle. MRI is pending. Continue current antibiotic regimen. Thank you, Dr. Hinds for this interesting consult. It will be a pleasure to follow patient with you throughout the hospital course. Dictated By: Stanley Tariq DO /shayna/ryan /Document#: [id number]
[2017-08-11 15:41] VITALS: BP 110/67; PULSE 102; RESP 18
--- NOTE | 2017-08-11 15:58 | CONS ---
DATE OF ADMISSION: 08/11/2017 DATE OF CONSULTATION: 08/11/2017 CHIEF COMPLAINT: Neck pain. HISTORY OF PRESENT ILLNESS: This is a 61-year-old female, who is complaining of pain in her neck and posterior scapula. She states that the pain has been ongoing for the last several days. She has a history of end-stage renal disease on hemodialysis. She denies any numbness or weakness. She denies any recent infections. She denies any history of trauma. She has no other complaints. PAST MEDICAL HISTORY: Gout, end-stage renal disease, on hemodialysis, and breast cancer, anemia. MEDICATION: Please see chart. PAST SURGICAL HISTORY: Right AV fistula, left breast mastectomy. SOCIAL HISTORY: Denies tobacco, alcohol, or drug use. FAMILY HISTORY: None. ALLERGIES: NO KNOWN DRUG ALLERGIES. REVIEW OF SYSTEMS: Negative except per HPI. PHYSICAL EXAMINATION: VITAL SIGNS: 98.8, blood pressure 98/78, pulse 98. GENERAL: Patient is in no acute distress. She is resting comfortably. EXTREMITIES: Left shoulder. No deformities are seen. No open wounds. There is no fluctuance or abscess. She has intact sensation to light touch in all dermatomes of the left upper extremity. She is nontender over the clavicle and AC joint. She has 5/5 function of her axillary, median, radial, and ulnar nerves. LABORATORY: White blood cell count 18.5. IMAGING DATA: X-rays left shoulder: No fractures or dislocations are seen. No abnormalities are found. IMPRESSION: A 61-year-old female with neck pain. PLAN: There is no evidence of fractures, dislocations, infections or osteomyelitis present. No orthopedic surgery intervention is required at this time. Thank you for the consultation. Dictated By: Meghan Ruiz MD /shayna/renan /Document#: [id number] KERRI
--- NOTE | 2017-08-11 18:10 | CONS ---
DATE OF ADMISSION: 08/11/2017 DATE OF CONSULTATION: 08/11/2017 REASON FOR CONSULTATION: Antibiotic management. HISTORY OF PRESENT ILLNESS: Norma Herr is a 61-year-old female who presented to the emergency room with complaints of left shoulder pain of one week duration. The pain is sharp in nature, radiates from her left shoulder to the left arm, left neck and left chest area. She was given Naprosyn and baclofen at a different emergency room two days ago, had a CT scan of the cervical spine, an x-ray was done, but her pain continues. She does not have any numbness or tingling. She has complained of chills but denies fever. She has history of renal insufficiency. She has end-stage renal disease on dialysis Tuesday, Tuesday, and Tuesday. On admission, her white count was 18.5, H and H 10.6 and 32, platelet count of 322,000, BUN and creatinine is 25/6.65. Alk phos was 149. Total protein 8.7, albumin 4.2, globulin 4.5. Shoulder x-ray was negative for acute fracture or dislocation. Left lung base opacity is incompletely imaged. Chest x-ray negative for evidence of any acute chest process, linear opacities at the right greater than left lung base, and a non contrast CT scan of the chest showed minimal inflammatory changes and enlargement of left pectoris musculature along the medial head of the clavicle and manubrium. No destructive osseous changes seen. Osteomyelitis of the clavicle cannot be entirely excluded. She has a subpleural lung nodule measuring up to 7 mm, likely accessory thyroid tissue, small nodular density within the posterior aspect of the proximal trachea on the right. HOSPITAL COURSE: Patient was seen by Dr. Tariq for end-stage renal disease. Patient has a right AV fistula. Patient was also seen by Dr. Strickland for neck pain. He did not feel that orthopedic surgery intervention was required because there is no evidence of fracture, dislocation or osteomyelitis present. PAST MEDICAL HISTORY: Operations as outlined. Other medical problems include. History of gout, as well as anemia and history of breast cancer. She has a right fistula, previous left fistula was closed because it was not working. She has left breast mastectomy. FAMILY HISTORY: Noncontributory. SOCIAL HISTORY: She does not smoke, drink, or abuse drugs. ALLERGIES: NONE TO PENICILLIN, SULFA, OR FOODS. MEDICATION: Per chart. REVIEW OF SYSTEMS: As per HPI. PHYSICAL EXAMINATION: GENERAL: Patient is lying in bed in mild distress from pain in her shoulder. SKIN: Without generalized rash. HEENT: Within normal limits. NECK: Supple. Lymph nodes nonpalpable. CHEST: Clear to percussion and auscultation. HEART: Without murmur or gallop. ABDOMEN: Soft, nontender without organosplenomegaly or masses. EXTREMITIES: Without cyanosis, clubbing, or edema. RECTAL AND GENITAL: Deferred. NEUROLOGICAL: Within normal limits. MUSCULOSKELETAL: She has tenderness to palpation over the left clavicle and left lateral neck and upper back. IMPRESSION AND PLAN: For the time being, will continue her on vancomycin for the possibility of osteomyelitis. She was on cefepime but that was stopped. We have to look for areas of any evidence of trauma in the recent past. We should also what her sedimentation rate and C- reactive protein is. I will dictate my findings to the hospitalist. Dictated By: Eusebio Zepeda MD JD/shayna/juan j /Document#: [id number]
--- NOTE | 2017-08-11 21:10 | RADRPT ---
Echocardiogram Report Patient Name: BROOKE ARROYO Gender: Female Date: 1955 Study Date: 11-Aug-2017 Data Visualization Developer: Genevieve Rahman RDCS Location: [facility] Ref. Physician: RANJANA FERGUSON Quality: Good Procedures: Transthoracic echocardiogram with complete 2D, M-Mode, and doppler examination. Indications: possible osteo, fevers, r/o endocarditis. 2D/M Mode Doppler Measurement Value Normal Ranges Measurement Value Normal Ranges LVIDd 2D 4.0 3.5 - 5.6 cm AV Peak Zeke 1.7 m/sec LVIDs 2D 2.1 2.1 - 4.1 cm AV Peak PG 12.0 mmHg LVPWd 2D 1.0 0.6 - 1.1 cm LVOT Peak Zeke 1.6 m/sec IVSd 2D 1.1 0.6 - 1.1 cm LVOT Peak PG 9.8 mmHg AoR Diam 2D 3.2 2.0 - 3.7 cm MV E Peak Zeke 0.9 m/sec EDV 2D 68.2 cm3 MV A Peak Zeke 1.2 m/sec ESV 2D 9.2 cm3 MV E/A 0.8 LA Dimen 2D 3.1 2.3 - 4.0 cm MV Decel Time 149 msec MV Decel [place] 6 MV E/A 0.8 TR Peak Zeke 2.9 m/sec TR Peak PG 32.5 mmHg RVSP 36.0 mmHg Findings Left Ventricle: Normal left ventricular systolic function. Normal left ventricular cavity size. Mild concentric left ventricular hypertrophy. Ejection fraction is visually estimated at 60 %. Tissue Doppler/Mitral Doppler indices are consistent with impaired relaxation (Stage I diastolic dysfunction). Right Ventricle: Normal right ventricular size. Normal right ventricular systolic function. Left Atrium: The left atrium is normal in size. Right Atrium: The right atrium is normal in size. Mitral Valve: Normal appearance and function of the mitral valve with trace physiologic regurgitation. Aortic Valve: No significant aortic stenosis or insufficiency. Aortic cusps appear mildly calcified. Tricuspid Valve: Normal appearance of the tricuspid valve. Estimated peak PA systolic pressure 36 mmHg. There is mild tricuspid regurgitation. Pulmonic Valve: Normal pulmonic valve appearance. Pericardium: Normal pericardium with no significant pericardial effusion. Aorta: Normal aortic root. IVC: Normal size and normal respiratory collapse consistent with normal right atrial pressure. Conclusions 1.Normal left ventricular systolic function. Normal left ventricular cavity size. Mild concentric left ventricular hypertrophy. Ejection fraction is visually estimated at 60 %. Tissue Doppler/Mitral Doppler indices are consistent with impaired relaxation (Stage I diastolic dysfunction). 2.Normal appearance and function of the mitral valve with trace physiologic regurgitation. 3.Normal appearance of the tricuspid valve. Estimated peak PA systolic pressure 36 mmHg. There is mild tricuspid regurgitation. Electronically Signed By: Kali Boston 11-Aug-2017 21:10:14 -0700 Patient Name: BROOKE ARROYO Study Date: 11-Aug-2017 [id number]
[2017-08-11 22:46] VITALS: BP 111/64; RESP 20
[2017-08-12] VITALS (12 sets, daily range): BP systolic 100–140; BP diastolic 40–79; PULSE 90–100; RESP 18–20
--- NOTE | 2017-08-12 10:28 | PN ---
DATE: 08/12/2017 SUBJECTIVE DATA: The patient is stable. The patient is pending hemodialysis today. No other events noted. OBJECTIVE DATA: VITAL SIGNS: Blood pressure 126/75, respirations 18, pulse 94, temperature 98.6. HEENT: Head is normocephalic. NECK: Supple. HEART: Regular rate. LUNGS: Diminished breath sounds at the base. ABDOMEN: Soft, nontender to palpation. No rebound or guarding. EXTREMITIES: Negative for clubbing, cyanosis. No edema. DERMATOLOGIC: No rashes. MUSCULOSKELETAL: No joint effusion. NEUROLOGIC: No change in exam. LABORATORY AND DIAGNOSTIC DATA: Laboratory data has been reviewed. ASSESSMENT AND PLAN: 1. Endstage renal disease. Patient is on dialysis Tuesday, Tuesday, Tuesday. Plan for hemodialysis today. Access is AV fistula. 2. Anemia. Monitor hemoglobin and hematocrit levels. We will give Epogen with hemodialysis. 3. Mineral bone disorder. Monitor calcium and phosphorus levels. Give phos binders as needed. 4. Hypertension. Continue current blood pressure regimen. 5. Left shoulder pain. Etiology is unclear. Follow up with orthopedist. Possible MRI. Questionable osteomyelitis. Follow up with Infectious Disease. 6. General debility. Dictated By: Stanley Tariq DO /shayna/shlomo /Document#: [id number]
[2017-08-12] MEDS: METOPROLOL 25 MG TAB PO SCH (11:00)
[2017-08-12] MEDS: LORATADINE 10 MG TAB PO SCH (11:57)
[2017-08-12] MEDS: SEVELAMER 800 MG TAB PO SCH ×3 (11:57→18:30)
--- NOTE | 2017-08-12 14:34 | CONS ---
Date/Time of Note Date/Time of Note DATE: 08/12/17 TIME: 14:33 Assessment/Plan Assessment/Plan Chief Complaint/Hosp Course No acute changes overnight. Patient is alert denies pain, looks comfortable Temperature 98.6 pulse 94 respirations 18 blood pressure 126/75 saturation 96 on room air Microbiology: Blood culture growing staph aureus preliminary Indwelling's: Right upper extremity AV fistula Antimicrobials: IV vancomycin Diagnostics: CT of the chest revealed minimal inflammatory changes and enlargement of the left pectoralis musculature along the medial head of the clavicle and manubrium, osteomyelitis of the clavicle cannot be entirely excluded Physical examination: This is a well-developed well-nourished elderly [place] woman who is alert in no distress. Head atraumatic normocephalic, sclera anicteric, buccal mucosa pink, dry. Neck is supple, trachea midline. Chest rise symmetrical breath sounds clear, diminished bases. Heart: S1, S2. Abdomen soft bowel sounds present. Extremities without cyanosis, right upper extremity AV fistula with palpable thrill. Assessment: 1. Staph aureus bacteremia, possibly MRSA 2. Possible left clavicular osteomyelitis 3. End-stage renal disease, hemodialysis dependent 4. Anemia 5. Hypertension Plan: Patient is hemodynamically and clinically stable, no evidence of fractures , dislocations, infections or osteomyelitis as per [facility]to note. No evidence of vegetations per 2D echo report. We are going to repeat blood cultures we will ask vascular team to evaluate for AV fistula. Continue IV vancomycin and await for final cultures. We will consider WBC labeled nuclear scan if no source of infection found Problems: Consultation Date/Type/Reason Admit Date/Time Aug 11, 2017 at 01:58 Initial Consult Date Type of Consultation: ID Exam/Review of Systems Vital Signs Vitals Vital Signs Date Time Temp Pulse Resp B/P Pulse Ox O2 Delivery O2 Flow Rate FiO2 08/12/17 08:00 98.6 94 18 126/75 96 08/11/17 15:41 Room Air Intake and Output 08/11/17 08/11/17 08/12/17 15:00 23:00 07:00 Intake Total 480 ml Balance 480 ml Results Result Diagram: 08/10/17214908/10/17 215 Medications Medications Current Medications Ondansetron HCl (Zofran Inj) 4 mg Q6H PRN IV NAUSEA AND/OR VOMITING; Start at 02:30 Acetaminophen (Tylenol Tab) 650 mg Q6H PRN PO PAIN LEVEL 1-3 OR FEVER; Start at 02:30 Docusate Sodium (Colace) 100 mg Q12H PRN PO CONSTIPATION; Start 08/11/17 at 02: 30 Bisacodyl (Dulcolax) 5 mg DAILY PRN PO CONSTIPATION; Start 08/11/17 at 02:30 Morphine Sulfate (morphine) 2 mg Q4H PRN IV PAIN LEVEL 1-5; Start 08/11/17 at 02:30 Hydromorphone HCl (Dilaudid) 0.5 mg Q4H PRN IV PAIN LEVEL 6-10 Last administered on 08/11/17 22:02; Admin Dose 0.5 MG; Start 08/11/17 at 02:30 Acetaminophen/ Hydrocodone Bitart ([place] (10/325)) 1 tab Q6H PRN PO PAIN; Start 08/12/17 at 11:00 Loratadine (Claritin) 10 mg DAILY PO Last administered on 08/12/17 11:57; Admin Dose 10 MG; Start 08/12/17 at 11:00 Metoprolol Tartrate (Lopressor) 25 mg DAILY PO ; Start 08/12/17 at 11:00 Miscellaneous Information (*Rx Drug Level Order Reminder*) 1 ONCE ONCE XX ; Start 08/13/17 at 05:00; Stop 08/13/17 at 05:01 MORIAH PRUETT NP Aug 12, 2017 14:34
--- NOTE | 2017-08-12 15:04 | PN ---
Date/Time of Note Date/Time of Note DATE: 08/12/17 TIME: 15:01 Assessment/Plan VTE Prophylaxis VTE Prophylaxis Intervention: SCD's Lines/Catheters IV Catheter Type (from Nrsg): Saline Lock Assessment/Plan Assessment/Plan 61 yo F with h/o ESRD on HD, DM2 presents with several days of painful swelling of proximal L clavicle and chills with HD. Pt found to have SAureus bacteremia, likely resultant OM of clavicle PLAN cont empiric vanc for SAur. if MSSA change to ancef blood cultures in process sp ortho eval ID eval vascular eval for graft in setting of bacteremia renal cs for HD SSI for DM2 BP control renal diet Subjective 24 Hr Interval Summary Free Text/Dictation Pt feels ok Exam/Review of Systems Vital Signs Vitals Vital Signs Date Time Temp Pulse Resp B/P Pulse Ox O2 Delivery O2 Flow Rate FiO2 08/12/17 08:00 98.6 94 18 126/75 96 08/11/17 15:41 Room Air Intake and Output 08/11/17 08/11/17 08/12/17 15:00 23:00 07:00 Intake Total 480 ml Balance 480 ml Exam nad no mrg lungs clear abd soft no rashes blood culture with SAur, TTE neg for vegetation Results Result Diagram: 08/10/17214908/10/172149 Medications Medications Current Medications Ondansetron HCl (Zofran Inj) 4 mg Q6H PRN IV NAUSEA AND/OR VOMITING; Start at 02:30 Acetaminophen (Tylenol Tab) 650 mg Q6H PRN PO PAIN LEVEL 1-3 OR FEVER; Start at 02:30 Docusate Sodium (Colace) 100 mg Q12H PRN PO CONSTIPATION; Start 08/11/17 at 02: 30 Bisacodyl (Dulcolax) 5 mg DAILY PRN PO CONSTIPATION; Start 08/11/17 at 02:30 Morphine Sulfate (morphine) 2 mg Q4H PRN IV PAIN LEVEL 1-5; Start 08/11/17 at 02:30 Hydromorphone HCl (Dilaudid) 0.5 mg Q4H PRN IV PAIN LEVEL 6-10 Last administered on 08/11/17t 22:02; Admin Dose 0.5 MG; Start 9/21/17 at 02:30 Acetaminophen/ Hydrocodone Bitart ([place] ()) 1 tab Q6H PRN PO PAIN; Start 08/12/17 at 11:00 Loratadine (Claritin) 10 mg DAILY PO Last administered on 08/12/17t 11:57; Admin Dose 10 MG; Start 08/12/17 at 11:00 Metoprolol Tartrate (Lopressor) 25 mg DAILY PO ; Start 08/12/17 at 11:00 Miscellaneous Information (*Rx Drug Level Order Reminder*) 1 ONCE ONCE XX ; Start 08/13/17 at 05:00; Stop 08/13/17 at 05:01 SUPRIYA BROWN MD Aug 12, 2017 15:04
--- NOTE | 2017-08-12 15:06 | RADRPT ---
PROCEDURE: MRI OF THE CHEST CLINICAL INDICATION: Osteomyelitis of the left clavicle. The patient is on dialysis. TECHNIQUE: Multiple MRI images were obtained utilizing multiple sequences in all three planes. Im ages were obtained in all three planes. Images were interpreted on high-resolution PACS system. COMPARISON: CT scan of the chest dated 08/10/2017. FINDINGS: There is no evidence for bone destructive change or bone marrow edema of the left clavicle to sugges t osteomyelitis. There is no evidence for SI joint septic arthritis. There is a degenerative subcort ical cyst of the sternum at the sternoclavicular joint seen on coronal image #9 which is seen on the CT scan of the chest. No aggressive features are seen. No there is soft tissue swelling just inferi or to the clavicle at the sternoclavicular joint and deep to the pectoralis major muscle belly. The soft tissue swelling is also just inferior to the subclavius muscle belly. Findings could potentiall y represent a phlegmon. No abscess is seen. The findings are nonspecific however and is consistent w ith nonspecific inflammatory change. IMPRESSION: 1. There is focal soft tissue swelling inferior to the left sternoclavicular joint and deep to the pectoralis major muscle belly. The findings are nonspecific and could represent nonspecific inflamma tory process or a phlegmon. No abscess is seen. 2. There is no evidence for osteomyelitis. 3. There are moderate degenerative changes of the left sternoclavicular joint. RPTAT: XX .Lonnie Howard MD, MD Date Time Electronically viewed and signed by .Lonnie Howard MD, on 08/12/2017 15:06 .T/
[2017-08-12 16:02] LABS: ABNORMAL IP MESSAGE 1; BASOPHIL # 0.1 10^3/ul (0.0-0.1); BASOPHILS % 0.5 % (0.0-2.0); EOSINOPHILS # 0.4 10^3/ul (0.0-0.5); EOSINOPHILS % 2.4 % (0.0-7.0); HEMATOCRIT 27.7 % (37.0-47.0); HEMOGLOBIN 8.5 g/dl (12.0-16.0); LYMPHOCYTES % 17.1 % (15.0-51.0); MEAN CORPUSCULAR HGB CONC 30.7 g/dl (32.0-37.0); MEAN CORPUSCULAR VOLUME 97.9 fl (82.0-101.0); MONOCYTE # 1.8 10^3/ul (0.3-0.9); MONOCYTES % 10.2 % (0.0-11.0); NEUTROPHILS % 69.3 % (39.0-77.0); PLATELET COUNT 360 10^3/UL (140-415); RED BLOOD COUNT 2.83 10^6/ul (4.20-5.40); RED CELL DISTRIBUTION WIDTH 13.2 % (11.5-14.5); WHITE BLOOD COUNT 17.3 10^3/ul (4.8-10.8)
[2017-08-12 16:05] LABS: POSITIVE DIFF @See below
[2017-08-12 16:29] LABS: ALBUMIN 3.6 g/dl (3.3-4.9); ALBUMIN/GLOBULIN RATIO 0.94; CALCIUM 7.8 mg/dl (8.4-10.2); CHOL/HDL RATIO 5.1 RATIO; CREATININE 10.27 mg/dl (0.44-1.00); MAGNESIUM 2.1 mg/dl (1.7-2.5); POTASSIUM 4.5 mmol/L (3.5-5.1); TOTAL PROTEIN 7.4 g/dl (6.1-8.1)
[2017-08-12 16:59] LABS: THYROID STIMULATING HORMONE 0.901 MIU/L (0.465-4.680)
--- NOTE | 2017-08-12 18:00 | CONS ---
DATE OF ADMISSION: 08/11/2017 DATE OF CONSULTATION: 08/12/2017 HISTORY OF PRESENT ILLNESS: Dear Doctors, The patient is a 61-year-old female with history of bilateral breast cancer, in which she had undergone mastectomies, who presents now with left sided anterior chest wall pain. The patient mentions that the pain started roughly about 9 to 10 days ago that had been gradually worsening. The patient denies any fever or chills. Denies shortness of breath, nausea, vomiting, lower extremity claudication or rest pain. Of note, patient has had a history of end-stage renal disease and has had left upper extremity AV fistula that has failed, and that was created for her about 3 years ago and currently has a right upper extremity AV fistula that seems to be brachiocephalic, and at the moment, no functional issues reported during dialysis. PAST MEDICAL HISTORY: 1. Entails end-stage renal disease on dialysis Tuesday, Tuesday, Tuesday. 2. Anemia of chronic disease, breast cancer, chest wall catheters. PAST SURGICAL HISTORY: Bilateral upper extremity fistula creation, is bilateral mastectomy, lymph node biopsy. FAMILY HISTORY: Hypertension. SOCIAL HISTORY: Denies tobacco, alcohol, or illicit drug use. PHYSICAL EXAMINATION: GENERAL: Alert and oriented times 3. No apparent distress. HEENT: Normocephalic, atraumatic. PERRLA. EOMI. Mucosa moist. NECK: Supple. No carotid bruit. LUNGS: Clear to auscultation bilaterally. No crackles. Left anterior chest wall infraclavicular tenderness and palpable mass that is closer to the anterior axillary line. Tenderness upon palpation. No erythema detected. HEART: S1, S2 present. No murmurs. ABDOMEN: Soft, nontender, nondistended. Bowel sounds positive. EXTREMITIES: Lower extremities, palpable femoral pulse, nonpalpable pedal pulse. NEUROLOGIC: Motor sensory intact. Capillary refill 3 seconds. IMPRESSION AND PLAN: 1. End-stage renal disease: The patient has a previous history of upper extremity fistula creation, at the moment she has what seems to be a right brachiocephalic fistula that is functioning well during her dialysis sessions. The patient mentioned that she has not followed up with the vascular surgeon recently as she has not had any issues, however, she is not in a current vascular surveillance program. Will plan to schedule the patient for a vascular surgery surveillance of her fistula, which can be done as an outpatient. 2. Left chest wall mass: The patient has a history of left upper extremity [place] arteriovenous fistula creation, which would be unlikely to be associated with the current findings. There is concern the patient has a history of previous left breast cancer and possibility of a local recurrent disease is there. Would recommend for the patient to go on further oncology workup. Further, the patient was found to be having nodules in her subpleural area, which would require further workup. 3. Optimize vascular status (blood pressure meds, diet, nutrition, exercise, sugar control, antiplatelets). 4. Would recommend obtaining a CT angiogram of the chest to further delineate any vascular component to this. PLAN: Will plan to obtain an ultrasound of the left upper extremity to evaluate for her previous left upper extremity AV fistula. Discussed findings, plan and management with the patient. She understands. Optimize vascular status (blood pressure meds, diet, nutrition, exercise, sugar control, antiplatelets). Thank you for allowing us to partake in the care of your patient. Please call with any questions. Dictated By: Too Cortez MD /shayna/steph /Document#: [id number]
[2017-08-12] MEDS: HYDROCODONE/APAP (10/325) TAB PO PRN (19:50)
--- NOTE | 2017-08-12 21:29 | RADRPT ---
PROCEDURE: US right upper extremity dialysis fistula CLINICAL INDICATION: Right upper extremity dialysis fistula malfunction. TECHNIQUE: Multiple longitudinal and transverse images of the right upper extremity dialysis fistu la and adjacent arterial system was obtained with bernstein scale pulsed Doppler, and color Doppler imagi ng. COMPARISON: None available FINDINGS: There is a right upper extremity dialysis fistula which appears patent. The fistula appears to be be tween the right brachial artery and cephalic vein. Normal triphasic flow is present in the brachial artery. There is a region of approximately 50-70% s tenosis in the outflow vein. IMPRESSION: 1. Patent right upper extremity dialysis fistula. 2. Approximately a 50-70% stenosis in the outflow vein. RPTAT: QQ .Omar Mg MD, MD Date Time Electronically viewed and signed by .Omar Mg MD, on 08/12/2017 21:29 .R/
[2017-08-13] VITALS (9 sets, daily range): BP systolic 98–130; BP diastolic 63–79; PULSE 80–85; RESP 16–18
[2017-08-13] MEDS: SEVELAMER 800 MG TAB PO SCH ×3 (08:11→17:34)
[2017-08-13] MEDS: METOPROLOL 25 MG TAB PO SCH (08:45)
[2017-08-13] MEDS: HYDROCODONE/APAP (10/325) TAB PO PRN (08:48)
[2017-08-13] MEDS: LORATADINE 10 MG TAB PO SCH (09:00)
[2017-08-13] MEDS ORDERED: VANCOMYCIN 1 GM in NS 250 ML IVPB SCH (10:00)
[2017-08-13 10:08] LABS: ABNORMAL IP MESSAGE 1; BASOPHIL # 0.1 10^3/ul (0.0-0.1); BASOPHILS % 0.6 % (0.0-2.0); EOSINOPHILS # 0.4 10^3/ul (0.0-0.5); EOSINOPHILS % 2.6 % (0.0-7.0); HEMOGLOBIN 10.2 g/dl (12.0-16.0); LYMPHOCYTES # 3.2 10^3/ul (0.8-2.9); LYMPHOCYTES % 18.9 % (15.0-51.0); MEAN CORPUSCULAR HEMOGLOBIN 31.2 pg (29.0-33.0); MEAN CORPUSCULAR HGB CONC 30.9 g/dl (32.0-37.0); MEAN CORPUSCULAR VOLUME 100.9 fl (82.0-101.0); MEAN PLATELET VOLUME 9.2 fl (7.4-10.4); MONOCYTE # 1.7 10^3/ul (0.3-0.9); NEUTROPHIL # 11.2 10^3/ul (1.6-7.5); NEUTROPHILS % 67.1 % (39.0-77.0); PLATELET COUNT 407 10^3/UL (140-415); RED BLOOD COUNT 3.27 10^6/ul (4.20-5.40); RED CELL DISTRIBUTION WIDTH 13.1 % (11.5-14.5); WHITE BLOOD COUNT 16.7 10^3/ul (4.8-10.8)
[2017-08-13 10:12] LABS: POSITIVE DIFF @See below
[2017-08-13 10:15] LABS: CALCIUM 8.6 mg/dl (8.4-10.2); CREATININE 7.51 mg/dl (0.44-1.00); POTASSIUM 5.3 mmol/L (3.5-5.1)
--- NOTE | 2017-08-13 10:44 | PN ---
DATE: 08/13/2017 SUBJECTIVE DATA: Yesterday the patient had hemodialysis. Tolerating it well, without any complications. No other events noted. OBJECTIVE DATA: VITAL SIGNS: Blood pressure is 117/77, respirations 16, pulse 79, and temperature 97.8. HEENT: Head is normocephalic. NECK: Supple. HEART: Regular rate. LUNGS: Diminished breath sounds at the base. ABDOMEN: Soft, nontender to palpation. No rebound or guarding. EXTREMITIES: Negative for clubbing, cyanosis. No edema. DERMATOLOGIC: No rashes. MUSCULOSKELETAL: No joint effusion. NEUROLOGIC: No change in exam. MEDICATIONS: Reviewed. LABORATORY AND DIAGNOSTIC DATA: Laboratory data reviewed. No new labs this morning. ASSESSMENT AND PLAN: 1. End-stage renal disease. The patient had hemodialysis yesterday, tolerated it well. Plan for dialysis again on Tuesday. 2. Anemia. Monitor hemoglobin and hematocrit levels. Continue Epogen. 3. Mineral bone disorder. Monitor calcium and phosphorus levels. 4. Hypertension. Continue current blood pressure regimen. 5. Sepsis bacteremia. Continue current antibiotic regimen. 6. General debility. Continue physical therapy. 7. Left chest wall mass. The patient was seen by vascular surgery. Will continue to monitor. Dictated By: Stanley Tariq DO /shayna/denae /Document#: [id number]
--- NOTE | 2017-08-13 13:05 | PN ---
Date/Time of Note Date/Time of Note DATE: 08/13/17 TIME: 12:58 Assessment/Plan VTE Prophylaxis VTE Prophylaxis Intervention: SCD's Lines/Catheters IV Catheter Type (from Nrsg): Saline Lock Assessment/Plan Assessment/Plan 61 yo F with h/o ESRD on HD, DM2 presents with several days of painful swelling of proximal L clavicle and chills with HD. Pt found to have SAureus bacteremia, MRI imaging of chest less specific and not consistent with OM. PLAN ?consider IR biopsy on Tuesday for chest wall mass? cont empiric vanc for SAur. if MSSA change to ancef blood cultures in process sp ortho eval ID on consult graft US unremarkable vascular consult noted. will ensure pt has outpatient onc f/u renal on cs for HD SSI for DM2 BP control renal diet incidental findings: Subpleural lung nodules measuring up to 7 mm. f/u: CT at 3-[address] at 18-24 mos. Small nodular density within the posterior aspect of the proximal trachea on the right. Correlation with endoscopy is suggested. Subjective 24 Hr Interval Summary Free Text/Dictation Sleeping Exam/Review of Systems Vital Signs Vitals Vital Signs Date Time Temp Pulse Resp B/P Pulse Ox O2 Delivery O2 Flow Rate FiO2 08/13/17 08:06 97.8 89 16 117/77 96 08/11/17 15:41 Room Air Intake and Output 08/12/17 08/12/17 08/13/17 15:00 23:00 07:00 Intake Total 1200 ml 350 ml Output Total 2500 ml Balance -1300 ml 350 ml Exam nad no mrg lungs clear abd soft no rashes Results Result Diagram: 08/13/17 0420 08/13/17 0420 Results 24 hrs Laboratory Tests Test 08/12/17 14:19 08/12/17 15:00 08/13/17 04:15 08/13/17 04:20 White Blood Count 17.3 H 16.7 H Red Blood Count 2.83 L 3.27 L Hemoglobin 8.5 L 10.2 L Hematocrit 27.7 L 33.0 L Mean Corpuscular Volume 97.9 100.9 Mean Corpuscular Hemoglobin 30.0 31.2 Mean Corpuscular Hemoglobin Concent 30.7 L 30.9 L Red Cell Distribution Width 13.2 13.1 Platelet Count 360 407 Mean Platelet Volume 9.0 9.2 Neutrophils % 69.3 67.1 Lymphocytes % 17.1 18.9 Monocytes % 10.2 10.0 Eosinophils % 2.4 2.6 Basophils % 0.5 0.6 Nucleated Red Blood Cells % 0.0 0.0 Neutrophils # 12.0 H 11.2 H Lymphocytes # 3.0 H 3.2 H Monocytes # 1.8 H 1.7 H Eosinophils # 0.4 0.4 Basophils # 0.1 0.1 Nucleated Red Blood Cells # 0.0 0.0 Erythrocyte Sedimentation Rate 144 H Sodium Level 135 142 Potassium Level 4.5 5.3 H Chloride Level 92 L 95 L Carbon Dioxide Level 32 H 28 Anion Gap 16 24 #H Blood Urea Nitrogen 48 #H 32 #H Creatinine 10.27 #H 7.51 #H Glucose Level 88 68 #L Hemoglobin A1c 5.6 Calcium Level 7.8 L 8.6 Magnesium Level 2.1 Total Bilirubin 0.0 L Direct Bilirubin 0.00 Indirect Bilirubin 0.0 Aspartate Amino Transf (AST/SGOT) 22 Alanine Aminotransferase (ALT/SGPT) 28 Alkaline Phosphatase 109 C-Reactive Protein 34.0 H Total Protein 7.4 # Albumin 3.6 Globulin 3.80 H Albumin/Globulin Ratio 0.94 Triglycerides Level 164 H Cholesterol Level 134 LDL Cholesterol, Calculated 75 HDL Cholesterol 26 L Cholesterol/HDL Ratio 5.1 Thyroid Stimulating Hormone (TSH) 0.901 Random Vancomycin Level 11.7 Medications Medications Current Medications Ondansetron HCl (Zofran Inj) 4 mg Q6H PRN IV NAUSEA AND/OR VOMITING; Start at 02:30 Acetaminophen (Tylenol Tab) 650 mg Q6H PRN PO PAIN LEVEL 1-3 OR FEVER; Start at 02:30 Docusate Sodium (Colace) 100 mg Q12H PRN PO CONSTIPATION; Start 08/11/17 at 02: 30 Bisacodyl (Dulcolax) 5 mg DAILY PRN PO CONSTIPATION; Start 08/11/17 at 02:30 Morphine Sulfate (morphine) 2 mg Q4H PRN IV PAIN LEVEL 1-5; Start 08/11/17 at 02:30 Hydromorphone HCl (Dilaudid) 0.5 mg Q4H PRN IV PAIN LEVEL 6-10 Last administered on 08/11/17t 22:02; Admin Dose 0.5 MG; Start 08/11/17 at 02:30 Acetaminophen/ Hydrocodone Bitart ([place] ()) 1 tab Q6H PRN PO PAIN Last administered on 08/13/17 08:48; Admin Dose 1 TAB; Start 08/12/17 at 11:00 Loratadine (Claritin) 10 mg DAILY PO Last administered on 08/12/17 11:57; Admin Dose 10 MG; Start 08/12/17 at 11:00 Metoprolol Tartrate 25 mg 25 mg DAILY PO ; Start 08/12/17 at 11:00 Vancomycin HCl (Vancocin) 250 ml @ 125 mls/hr 10 IVPB Last administered on 10:08; Admin Dose 125 MLS/HR; Start 08/13/17 at 10:00; Stop 08/13/17 at 20:00 SUPRIYA BROWN MD Aug 13, 2017 13:05
--- NOTE | 2017-08-13 13:31 | CONS ---
Date/Time of Note Date/Time of Note DATE: 08/13/17 TIME: 13:25 Assessment/Plan Assessment/Plan Chief Complaint/Hosp Course Alert, complaining of left ear fullness also still having left upper chest wall pain, no fevers Temperature 97.8 pulse 89 respirations 16 blood pressure 117/77 saturation 96% Microbiology: Blood culture persistently growing oxacillin sensitive staph aureus Indwelling's: Right upper extremity AV fistula Antimicrobials: IV vancomycin Diagnostics: CT of the chest revealed minimal inflammatory changes and enlargement of the left pectoralis musculature along the medial head of the clavicle and manubrium, osteomyelitis of the clavicle cannot be entirely excluded Physical examination: This is a well-developed well-nourished elderly [place] woman who is alert in no distress. Head atraumatic normocephalic, sclera anicteric, buccal mucosa pink, dry. Neck is supple, trachea midline. Chest rise symmetrical breath sounds clear, diminished bases. Heart: S1, S2. Abdomen soft bowel sounds present. Extremities without cyanosis, right upper extremity AV fistula with palpable thrill. Assessment: 1. MSSA bacteremia, ?etiology 2. Left sternal clavicular joint and muscle inflammatory findings per MRI, rule out abscess 3. End-stage renal disease, hemodialysis dependent 4. Anemia 5. Hypertension Plan: Patient is hemodynamically and clinically stable, no evidence of osteomyelitis per MRI of the chest, Orto is on case, 2D echo revealed no vegetations, right upper extremity AV fistula does not look infected. We will continue vancomycin, order WBC labeled nuclear scan, if negative may consider PASCUAL DW patient Problems: Consultation Date/Type/Reason Admit Date/Time Aug 11, 2017 at 01:58 Type of Consultation: ID Exam/Review of Systems Vital Signs Vitals Vital Signs Date Time Temp Pulse Resp B/P Pulse Ox O2 Delivery O2 Flow Rate FiO2 08/13/17 08:06 97.8 89 16 117/77 96 08/11/17 15:41 Room Air Intake and Output 08/12/17 08/12/17 08/13/17 15:00 23:00 07:00 Intake Total 1200 ml 350 ml Output Total 2500 ml Balance -1300 ml 350 ml Results Result Diagram: 08/13/17 0420 08/13/17 0420 Results 24 hrs Laboratory Tests Test 08/12/17 14:19 08/12/17 15:00 08/13/17 04:15 08/13/17 04:20 White Blood Count 17.3 H 16.7 H Red Blood Count 2.83 L 3.27 L Hemoglobin 8.5 L 10.2 L Hematocrit 27.7 L 33.0 L Mean Corpuscular Volume 97.9 100.9 Mean Corpuscular Hemoglobin 30.0 31.2 Mean Corpuscular Hemoglobin Concent 30.7 L 30.9 L Red Cell Distribution Width 13.2 13.1 Platelet Count 360 407 Mean Platelet Volume 9.0 9.2 Neutrophils % 69.3 67.1 Lymphocytes % 17.1 18.9 Monocytes % 10.2 10.0 Eosinophils % 2.4 2.6 Basophils % 0.5 0.6 Nucleated Red Blood Cells % 0.0 0.0 Neutrophils # 12.0 H 11.2 H Lymphocytes # 3.0 H 3.2 H Monocytes # 1.8 H 1.7 H Eosinophils # 0.4 0.4 Basophils # 0.1 0.1 Nucleated Red Blood Cells # 0.0 0.0 Erythrocyte Sedimentation Rate 144 H Sodium Level 135 142 Potassium Level 4.5 5.3 H Chloride Level 92 L 95 L Carbon Dioxide Level 32 H 28 Anion Gap 16 24 #H Blood Urea Nitrogen 48 #H 32 #H Creatinine 10.27 #H 7.51 #H Glucose Level 88 68 #L Hemoglobin A1c 5.6 Calcium Level 7.8 L 8.6 Magnesium Level 2.1 Total Bilirubin 0.0 L Direct Bilirubin 0.00 Indirect Bilirubin 0.0 Aspartate Amino Transf (AST/SGOT) 22 Alanine Aminotransferase (ALT/SGPT) 28 Alkaline Phosphatase 109 C-Reactive Protein 34.0 H Total Protein 7.4 # Albumin 3.6 Globulin 3.80 H Albumin/Globulin Ratio 0.94 Triglycerides Level 164 H Cholesterol Level 134 LDL Cholesterol, Calculated 75 HDL Cholesterol 26 L Cholesterol/HDL Ratio 5.1 Thyroid Stimulating Hormone (TSH) 0.901 Random Vancomycin Level 11.7 Medications Medications Current Medications Ondansetron HCl (Zofran Inj) 4 mg Q6H PRN IV NAUSEA AND/OR VOMITING; Start at 02:30 Acetaminophen (Tylenol Tab) 650 mg Q6H PRN PO PAIN LEVEL 1-3 OR FEVER; Start at 02:30 Docusate Sodium (Colace) 100 mg Q12H PRN PO CONSTIPATION; Start 08/11/17 at 02: 30 Bisacodyl (Dulcolax) 5 mg DAILY PRN PO CONSTIPATION; Start 08/11/17 at 02:30 Morphine Sulfate (morphine) 2 mg Q4H PRN IV PAIN LEVEL 1-5; Start 08/11/17 at 02:30 Hydromorphone HCl (Dilaudid) 0.5 mg Q4H PRN IV PAIN LEVEL 6-10 Last administered on 08/11/17 22:02; Admin Dose 0.5 MG; Start 08/11/17 at 02:30 Acetaminophen/ Hydrocodone Bitart ([place] (10/325)) 1 tab Q6H PRN PO PAIN Last administered on 08/13/17 08:48; Admin Dose 1 TAB; Start 08/12/17 at 11:00 Loratadine (Claritin) 10 mg DAILY PO Last administered on 08/12/17 11:57; Admin Dose 10 MG; Start 08/12/17 at 11:00 Metoprolol Tartrate 25 mg 25 mg DAILY PO ; Start 08/12/17 at 11:00 Vancomycin HCl (Vancocin) 250 ml @ 125 mls/hr 10 IVPB Last administered on 10:08; Admin Dose 125 MLS/HR; Start 08/13/17 at 10:00; Stop 08/13/17 at 20:00 MORIAH PRUETT NP Aug 13, 2017 13:31
[2017-08-14 02:08] VITALS: BP 124/57; RESP 18
[2017-08-14 06:18] LABS: ABNORMAL IP MESSAGE 1; BASOPHIL # 0.1 10^3/ul (0.0-0.1); BASOPHILS % 0.7 % (0.0-2.0); EOSINOPHILS # 0.5 10^3/ul (0.0-0.5); EOSINOPHILS % 3.1 % (0.0-7.0); HEMATOCRIT 32.5 % (37.0-47.0); HEMOGLOBIN 10.2 g/dl (12.0-16.0); LYMPHOCYTES # 3.1 10^3/ul (0.8-2.9); LYMPHOCYTES % 19.3 % (15.0-51.0); MEAN CORPUSCULAR HGB CONC 31.4 g/dl (32.0-37.0); MEAN CORPUSCULAR VOLUME 98.8 fl (82.0-101.0); MEAN PLATELET VOLUME 8.7 fl (7.4-10.4); MONOCYTE # 1.7 10^3/ul (0.3-0.9); MONOCYTES % 10.7 % (0.0-11.0); NEUTROPHIL # 10.5 10^3/ul (1.6-7.5); PLATELET COUNT 425 10^3/UL (140-415); RED BLOOD COUNT 3.29 10^6/ul (4.20-5.40); RED CELL DISTRIBUTION WIDTH 12.9 % (11.5-14.5); WHITE BLOOD COUNT 16.1 10^3/ul (4.8-10.8)
[2017-08-14 06:48] LABS: CALCIUM 9.3 mg/dl (8.4-10.2); CREATININE 6.93 mg/dl (0.44-1.00); MAGNESIUM 2.2 mg/dl (1.7-2.5); PHOSPHORUS 5.7 mg/dl (2.5-4.9); POTASSIUM 4.3 mmol/L (3.5-5.1)
[2017-08-14 06:49] LABS: POSITIVE DIFF @See below
[2017-08-14] MEDS: METOPROLOL 25 MG TAB PO SCH (08:09)
[2017-08-14] MEDS: SEVELAMER 800 MG TAB PO SCH ×3 (08:09→17:27)
[2017-08-14] MEDS: LORATADINE 10 MG TAB PO SCH (08:10)
[2017-08-14 08:18] VITALS: BP 119/76; RESP 17
--- NOTE | 2017-08-14 10:38 | PN ---
DATE: 08/14/2017 SUBJECTIVE DATA: The patient had hemodialysis yesterday, tolerated well. No other events noted. OBJECTIVE DATA: VITAL SIGNS: Blood pressure 193/76, respirations 17, pulse 94, temperature 97.6. HEENT: Head is normocephalic. NECK: Supple. HEART: Regular rate. LUNGS: Diminished breath sounds at the base. ABDOMEN: Soft, nontender to palpation. No rebound, guarding. EXTREMITIES: Negative for clubbing, cyanosis. No edema. DERMATOLOGIC: Clean. No rashes. MUSCULOSKELETAL: No joint effusion. NEUROLOGIC: Unchanged exam. MEDICATIONS: The patient's medications have been reviewed. LABORATORY AND DIAGNOSTIC DATA: Shows sodium 143, potassium 4.3, BUN 27, creatinine 6.93. White count is 16.1, hemoglobin 10.2, hematocrit 32.5 and platelet count is 425,000. ASSESSMENT AND PLAN: 1. End-stage renal disease. The patient had hemodialysis yesterday, tolerated well. Plan for dialysis again tomorrow. 2. Anemia. Continue to monitor hemoglobin and hematocrit levels. Continue Epogen. 3. Hypokalemia, improved. Continue low-potassium bath with hemodialysis. Continue low-potassium diet. 4. Mineral bone disorder. Continue to monitor calcium and phosphorus levels. 5. Hypertension. Continue current blood pressure regimen. 6. Sepsis bacteremia. Continue current antibiotic regimen. 7. Left chest wall inflammation, questionable mass. Continue to monitor. Follow up with surgery. 8. General debility. Continue physical therapy. Dictated By: Stanley Tariq DO /shayna/rony /Document#: [id number]
--- NOTE | 2017-08-14 15:27 | PN ---
Date/Time of Note Date/Time of Note DATE: 08/14/17 TIME: 15:25 Assessment/Plan VTE Prophylaxis VTE Prophylaxis Intervention: SCD's Lines/Catheters IV Catheter Type (from Nrsg): Saline Lock Assessment/Plan Assessment/Plan 61 yo F with h/o ESRD on HD, DM2 presents with several days of painful swelling of proximal L clavicle and chills with HD. Pt found to have SAureus bacteremia, MRI imaging of chest non specific but not consistent with OM. PLAN ?consider IR biopsy on Tuesday for chest wall mass? cont empiric vanc for SAur. sp ortho eval ID on consult graft US unremarkable vascular consult noted. will ensure pt has outpatient onc f/u tagged WBC scan ordered by ID renal on cs for HD SSI for DM2 BP control renal diet incidental findings: Subpleural lung nodules measuring up to 7 mm. f/u: CT at 3-[address] at 18-24 mos. Small nodular density within the posterior aspect of the proximal trachea on the right. Correlation with endoscopy is suggested. Subjective 24 Hr Interval Summary Free Text/Dictation resting in bed this AM Exam/Review of Systems Vital Signs Vitals Vital Signs Date Time Temp Pulse Resp B/P Pulse Ox O2 Delivery O2 Flow Rate FiO2 08/14/17 08:18 97.6 94 17 119/76 95 08/11/17 15:41 Room Air Intake and Output 08/13/17 08/13/17 08/14/17 15:00 23:00 07:00 Intake Total 250 ml 1100 ml 100 ml Output Total 2300 ml Balance 250 ml -1200 ml 100 ml Exam nad sleeping resp nonlabored abd nondistended no rashes no edema surveillance blood cultures neg Results Result Diagram: 08/14/17 0537 08/14/17 0537 Results 24 hrs Laboratory Tests Test 08/14/17 05:37 White Blood Count 16.1 H Red Blood Count 3.29 L Hemoglobin 10.2 L Hematocrit 32.5 L Mean Corpuscular Volume 98.8 Mean Corpuscular Hemoglobin 31.0 Mean Corpuscular Hemoglobin Concent 31.4 L Red Cell Distribution Width 12.9 Platelet Count 425 H Mean Platelet Volume 8.7 Neutrophils % 65.0 Lymphocytes % 19.3 Monocytes % 10.7 Eosinophils % 3.1 Basophils % 0.7 Nucleated Red Blood Cells % 0.0 Neutrophils # 10.5 H Lymphocytes # 3.1 H Monocytes # 1.7 H Eosinophils # 0.5 Basophils # 0.1 Nucleated Red Blood Cells # 0.0 Sodium Level 143 Potassium Level 4.3 Chloride Level 97 Carbon Dioxide Level 32 H Anion Gap 18 H Blood Urea Nitrogen 27 H Creatinine 6.93 H Glucose Level 81 Calcium Level 9.3 Phosphorus Level 5.7 H Magnesium Level 2.2 Medications Medications Current Medications Ondansetron HCl (Zofran Inj) 4 mg Q6H PRN IV NAUSEA AND/OR VOMITING; Start at 02:30 Acetaminophen (Tylenol Tab) 650 mg Q6H PRN PO PAIN LEVEL 1-3 OR FEVER; Start at 02:30 Docusate Sodium (Colace) 100 mg Q12H PRN PO CONSTIPATION; Start 08/11/17 at 02: 30 Bisacodyl (Dulcolax) 5 mg DAILY PRN PO CONSTIPATION; Start 08/11/17 at 02:30 Morphine Sulfate (morphine) 2 mg Q4H PRN IV PAIN LEVEL 1-5; Start 08/11/17 at 02:30 Hydromorphone HCl (Dilaudid) 0.5 mg Q4H PRN IV PAIN LEVEL 6-10 Last administered on 08/11/17 22:02; Admin Dose 0.5 MG; Start 08/11/17 at 02:30 Acetaminophen/ Hydrocodone Bitart ([place] (10/325)) 1 tab Q6H PRN PO PAIN Last administered on 08/13/17 08:48; Admin Dose 1 TAB; Start 08/12/17 at 11:00 Loratadine (Claritin) 10 mg DAILY PO Last administered on 08/14/17 08:10; Admin Dose 10 MG; Start 08/12/17 at 11:00 Metoprolol Tartrate (Lopressor) 25 mg DAILY PO Last administered on 08/14/17 08:09; Admin Dose 25 MG; Start 08/12/17 at 11:00 SUPRIYA BROWN MD Aug 14, 2017 15:27
--- NOTE | 2017-08-14 15:44 | CONS ---
Date/Time of Note Date/Time of Note DATE: 08/14/17 TIME: 15:38 Assessment/Plan Assessment/Plan Chief Complaint/Hosp Course Chief Complaint/Hosp Course Alert. Complaining of left ear fullness. Still having left upper clavicular pain. No Fevers. Temperature 97.8 pulse 89 respirations 16 blood pressure 117/77 saturation 96% Microbiology: Blood culture persistently growing oxacillin sensitive staph aureus Indwelling's: Right upper extremity AV fistula Antimicrobials: IV vancomycin Diagnostics: CT of the chest revealed minimal inflammatory changes and enlargement of the left pectoralis musculature along the medial head of the clavicle and manubrium, osteomyelitis of the clavicle cannot be entirely excluded Physical examination: This is a well-developed well-nourished elderly [place] woman who is alert in no distress. Head atraumatic normocephalic, sclera anicteric, buccal mucosa pink, dry. Neck is supple, trachea midline. Chest rise symmetrical breath sounds clear, diminished bases. Heart: S1, S2. Abdomen soft bowel sounds present. Extremities without cyanosis, right upper extremity AV fistula with palpable thrill. Assessment: 1. MSSA bacteremia, ?etiology 2. Left sternal clavicular joint and muscle inflammatory findings per MRI, rule out abscess 3. End-stage renal disease, hemodialysis dependent 4. Anemia 5. Hypertension 6. Left Clavicular Edema 7. Left Ear Fullness Plan: Patient is hemodynamically and clinically stable. No evidence of osteomyelitis per MRI of the chest, Orto is on case, 2D echo revealed no vegetations, right upper extremity AV fistula does not look infected. We will continue vancomycin, order WBC labeled nuclear scan, if negative may consider PASCUAL. Pain Management. DW patient Problems: Consultation Date/Type/Reason Admit Date/Time Aug 11, 2017 at 01:58 Initial Consult Date Type of Consultation: ID Exam/Review of Systems Vital Signs Vitals Vital Signs Date Time Temp Pulse Resp B/P Pulse Ox O2 Delivery O2 Flow Rate FiO2 08/14/17 08:18 97.6 94 17 119/76 95 08/11/17 15:41 Room Air Intake and Output 08/13/17 08/13/17 08/14/17 15:00 23:00 07:00 Intake Total 250 ml 1100 ml 100 ml Output Total 2300 ml Balance 250 ml -1200 ml 100 ml Results Result Diagram: 08/14/17 0537 08/14/17 0537 Results 24 hrs Laboratory Tests Test 08/14/17 05:37 White Blood Count 16.1 H Red Blood Count 3.29 L Hemoglobin 10.2 L Hematocrit 32.5 L Mean Corpuscular Volume 98.8 Mean Corpuscular Hemoglobin 31.0 Mean Corpuscular Hemoglobin Concent 31.4 L Red Cell Distribution Width 12.9 Platelet Count 425 H Mean Platelet Volume 8.7 Neutrophils % 65.0 Lymphocytes % 19.3 Monocytes % 10.7 Eosinophils % 3.1 Basophils % 0.7 Nucleated Red Blood Cells % 0.0 Neutrophils # 10.5 H Lymphocytes # 3.1 H Monocytes # 1.7 H Eosinophils # 0.5 Basophils # 0.1 Nucleated Red Blood Cells # 0.0 Sodium Level 143 Potassium Level 4.3 Chloride Level 97 Carbon Dioxide Level 32 H Anion Gap 18 H Blood Urea Nitrogen 27 H Creatinine 6.93 H Glucose Level 81 Calcium Level 9.3 Phosphorus Level 5.7 H Magnesium Level 2.2 Medications Medications Current Medications Ondansetron HCl (Zofran Inj) 4 mg Q6H PRN IV NAUSEA AND/OR VOMITING; Start at 02:30 Acetaminophen (Tylenol Tab) 650 mg Q6H PRN PO PAIN LEVEL 1-3 OR FEVER; Start at 02:30 Docusate Sodium (Colace) 100 mg Q12H PRN PO CONSTIPATION; Start 08/11/17 at 02: 30 Bisacodyl (Dulcolax) 5 mg DAILY PRN PO CONSTIPATION; Start 08/11/17 at 02:30 Morphine Sulfate (morphine) 2 mg Q4H PRN IV PAIN LEVEL 1-5; Start 08/11/17 at 02:30 Hydromorphone HCl (Dilaudid) 0.5 mg Q4H PRN IV PAIN LEVEL 6-10 Last administered on 08/11/17 22:02; Admin Dose 0.5 MG; Start 08/11/17 at 02:30 Acetaminophen/ Hydrocodone Bitart ([place] (10/325)) 1 tab Q6H PRN PO PAIN Last administered on 08/13/17 08:48; Admin Dose 1 TAB; Start 08/12/17 at 11:00 Loratadine (Claritin) 10 mg DAILY PO Last administered on 08/14/17 08:10; Admin Dose 10 MG; Start 08/12/17 at 11:00 Metoprolol Tartrate (Lopressor) 25 mg DAILY PO Last administered on 08/14/17 08:09; Admin Dose 25 MG; Start 08/12/17 at 11:00 CALDERON MIGUEL NP Aug 14, 2017 15:44
[2017-08-14 20:01] VITALS: BP 131/78; RESP 18
[2017-08-15] VITALS (12 sets, daily range): BP systolic 97–136; BP diastolic 56–84; PULSE 75–92; RESP 16–18
[2017-08-15] MEDS: BISACODYL (EC) 5 MG TAB PO PRN (05:54)
[2017-08-15] MEDS: LORATADINE 10 MG TAB PO SCH (08:07)
[2017-08-15] MEDS: SEVELAMER 800 MG TAB PO SCH ×3 (08:07→17:20)
[2017-08-15] MEDS: METOPROLOL 25 MG TAB PO SCH (08:10)
--- NOTE | 2017-08-15 13:15 | PN ---
DATE: 08/15/2017 SUBJECTIVE DATA: The patient is stable. No events overnight. The patient is pending hemodialysis today. OBJECTIVE DATA: VITAL SIGNS: Blood pressure is 127/82, temperature 97.9, pulse 83, and respirations 18. HEENT: Head is normocephalic. Pupils are reactive to light. NECK: Supple. HEART: Regular rate. LUNGS: Diminished breath sounds at the base. ABDOMEN: Soft, nontender to palpation. No rebound or guarding. EXTREMITIES: Negative for clubbing,or cyanosis. No edema. DERMATOLOGIC: No rashes. MUSCULOSKELETAL: No joint effusion. NEUROLOGIC: No change in exam. MEDICATIONS: Reviewed. LABORATORY AND DIAGNOSTIC DATA: From 08/14/2017 was reviewed. No new laboratory data from 08/15/2017. ASSESSMENT AND PLAN: 1. End-stage renal disease. The patient is scheduled for dialysis today. 2. Anemia. Monitor hemoglobin and hematocrit levels. We will give Epogen with hemodialysis. 3. Mineral bone disorder. Monitor phosphorus levels. 4. Hypertension. Continue current blood pressure regimen. 5. Sepsis bacteremia. Continue current antibiotic regimen. 6. Left chest wall inflammation, possible mass. Follow up with Surgery. 7. General debility. Continue physical therapy. Dictated By: Stanley Tariq DO /shayna/lacho /Document#: [id number]
--- NOTE | 2017-08-15 14:47 | PN ---
Date/Time of Note Date/Time of Note DATE: 08/15/17 TIME: 14:42 Assessment/Plan VTE Prophylaxis VTE Prophylaxis Intervention: SCD's Lines/Catheters IV Catheter Type (from Nrsg): Peripheral IV Assessment/Plan Chief Complaint/Hosp Course Assessment/Plan: 61 yo F with h/o ESRD on HD, DM2 presents with several days of painful swelling of proximal L clavicle and chills with HD. Pt found to have S. Aureus bacteremia, MRI imaging of chest non specific but not consistent with OM. PLAN ?consider IR biopsy on Tuesday for chest wall mass?-Will discuss with infectious disease team about obtaining this Will stop empiric vanc for now giving possible tinnitus symptoms, replace with another antibiotic with similar sensitivities for continued treatment of staph aureus bacteremia. sp ortho [id number] recommendations ID on consult, follow-up their recommendations graft US unremarkable-vascular surgery team on the case as well vascular consult also recommending hematology oncology consult given prior history of breast cancer, will ensure pt has outpatient onc f/u tagged WBC scan ordered by ID -still pending to be done, likely to be done in 24 hours, follow-up results of this. renal on cs for HD SSI for DM2 BP control renal diet Of note, incidental findings: Subpleural lung nodules measuring up to 7 mm. f/u: CT at 3-[address] at 18-24 mos. Small nodular density within the posterior aspect of the proximal trachea on the right. Correlation with endoscopy is suggested? Problems: Subjective 24 Hr Interval Summary Free Text/Dictation Seen by renal team this morning, presently getting dialysis. Complains of some ringing in her ears that have been going on for the last 3 days. Exam/Review of Systems Vital Signs Vitals Vital Signs Date Time Temp Pulse Resp B/P Pulse Ox O2 Delivery O2 Flow Rate FiO2 08/15/17 08:04 97.9 83 18 127/82 99 08/11/17 15:41 Room Air Intake and Output 08/14/17 08/14/17 08/15/17 15:00 23:00 07:00 Intake Total 720 ml 600 ml Balance 720 ml 600 ml Exam nad sleeping, presently getting dialysis resp nonlabored S1, S2 heard abd nondistended no rashes no edema Results Result Diagram: 08/14/17 0537 08/14/17 0537 Medications Medications Current Medications Ondansetron HCl (Zofran Inj) 4 mg Q6H PRN IV NAUSEA AND/OR VOMITING; Start at 02:30 Acetaminophen (Tylenol Tab) 650 mg Q6H PRN PO PAIN LEVEL 1-3 OR FEVER; Start at 02:30 Docusate Sodium (Colace) 100 mg Q12H PRN PO CONSTIPATION; Start 08/11/17 at 02: 30 Bisacodyl (Dulcolax) 5 mg DAILY PRN PO CONSTIPATION Last administered on 05:54; Admin Dose 5 MG; Start 08/11/17 at 02:30 Morphine Sulfate (morphine) 2 mg Q4H PRN IV PAIN LEVEL 1-5; Start 08/11/17 at 02:30 Hydromorphone HCl (Dilaudid) 0.5 mg Q4H PRN IV PAIN LEVEL 6-10 Last administered on 08/11/17 22:02; Admin Dose 0.5 MG; Start 08/11/17 at 02:30 Acetaminophen/ Hydrocodone Bitart ([place] (10/325)) 1 tab Q6H PRN PO PAIN Last administered on 08/13/17 08:48; Admin Dose 1 TAB; Start 08/12/17 at 11:00 Loratadine (Claritin) 10 mg DAILY PO Last administered on 08/15/17 08:07; Admin Dose 10 MG; Start 08/12/17 at 11:00 Metoprolol Tartrate (Lopressor) 25 mg DAILY PO Last administered on 08/14/17 08:09; Admin Dose 25 MG; Start 08/12/17 at 11:00 Miscellaneous Information (*Rx Drug Level Order Reminder*) 1 ONCE ONCE XX ; Start 08/16/17 at 05:00; Stop 08/16/17 at 05:01 MARCELLO ARANDA Aug 15, 2017 14:47
[2017-08-15] MEDS ORDERED: LEVOFLOXACIN 750MG/D5W (PMX) 150 ML IVPB SCH (16:00)
--- NOTE | 2017-08-15 17:46 | PN ---
DATE: 08/15/2017 SUBJECTIVE DATA: No acute changes overnight per report. The patient is sleeping, looks comfortable. No fevers. The patient apparently complained of right tinnitus and vancomycin was changed to Levaquin. MICROBIOLOGY: Repeat blood cultures on August 12 and negative. ANTIMICROBIAL: The patient is on Levaquin. PHYSICAL EXAMINATION: GENERAL: This is a well nourished, well developed, elderly woman, who is in no distress. HEENT: Head atraumatic, normocephalic. Sclerae anicteric. Buccal mucosa dry. NECK: Supple. Trachea midline. CHEST: Chest rise symmetrical. Breath sounds diminished at the bases. HEART: S1, S2. ABDOMEN: Soft, bowel sounds present. EXTREMITIES: Without cyanosis. ASSESSMENT: 1. Oxacillin-sensitive Staph aureus bacteremia, etiology unclear. 2. Left sternal clavicular joint and muscle inflammatory changes per MRI, rule out abscess. 3. End-stage renal disease, on hemodialysis. 4. Anemia. 5. Hypertension. PLAN: 1. The patient remains stable. 2. We are going to change Levaquin to IV Rocephin. Although the patient can be continued on vancomycin given the fact that she is on dialysis. 3. Await for WBC labeled nuclear scan. Dictated By: Silverio Cueto NP /shayna/lacho /Document#: [id number]
[2017-08-15] MEDS: CEFTRIAXONE 1 GM/50 ML (PMX) 50 ML IVPB SCH (18:46)
--- NOTE | 2017-08-15 20:30 | PN ---
Date/Time of Note Date/Time of Note DATE: 08/15/17 TIME: 20:22 Assessment/Plan Lines/Catheters IV C[facility] Type ([facility] Peripheral IV Assessment/Plan Chief Complaint/Hosp Course -End-stage renal disease: The patient has a previous history of upper extremity fistula creations, at the moment she has a right brachiocephalic fistula and upon her fistula ultrasound it was identified to have an outflow vein stenosis. Will schedule for eventual Fistulogram once we have a better idea regarding her left chest wall mass -Left chest wall mass: The patient has a history of left upper extremity samish arteriovenous fistula creation, which would be unlikely to be associated with the current findings. There is concern the patient has a history of previous left breast cancer and possibility of a local recurrent disease. Would recommend for further oncology workup and investigate the Subpleural lung nodules measuring up to 7 mm -Optimize vascular status (blood pressure meds, diet, nutrition, exercise, sugar control, antiplatelets). -Would recommend obtaining a CT angiogram of the chest to further delineate any vascular component to this. -Will plan to obtain an ultrasound of the left upper extremity to evaluate for her previous left upper extremity AV fistula. -Discussed findings, plan and management with the patient. She understands. -Optimize vascular status (blood pressure meds, diet, nutrition, exercise, sugar control, antiplatelets). -Thank you for allowing us to partake in the care of your patient. Please call with any questions. Problems: Subjective 24 Hr Interval Summary NO NEW VASCULAR EVENTS OVERNIGHT Exam/Review of Systems Vital Signs Vitals Vital Signs Date Time Temp Pulse Resp B/P Pulse Ox O2 Delivery O2 Flow Rate FiO2 08/15/17 17:28 75 18 97/67 Room Air 08/15/17 08:04 97.9 99 Intake and Output 08/14/17 08/14/17 08/15/17 15:00 23:00 07:00 Intake Total 720 ml 600 ml Balance 720 ml 600 ml Exam Free Text/Dictation GENERAL: Alert and oriented times 3. LUNGS: Clear to auscultation bilaterally. No crackles. Left anterior chest wall infraclavicular tenderness and palpable mass that is closer to the anterior axillary line. Tenderness upon palpation. No erythema detected. HEART: S1, S2 present. ABDOMEN: Soft, nontender, nondistended. Bowel sounds positive. EXTREMITIES: Lower extremities, palpable femoral pulse, nonpalpable pedal pulse. Motor sensory intact. Capillary refill 3 seconds. Results Result Diagram: 08/14/17 0537 08/14/17 0537 NICOLE MURRIETA MD Aug 15, 2017 20:30
[2017-08-16] VITALS (7 sets, daily range): BP systolic 93–143; BP diastolic 63–75; PULSE 71–80; RESP 16–18
[2017-08-16] MEDS: BISACODYL (EC) 5 MG TAB PO PRN (08:40)
[2017-08-16] MEDS: SEVELAMER 800 MG TAB PO SCH ×5 (08:41→18:54)
[2017-08-16] MEDS: LORATADINE 10 MG TAB PO SCH (08:41)
[2017-08-16] MEDS: METOPROLOL 25 MG TAB PO SCH (08:41)
--- NOTE | 2017-08-16 08:41 | RADRPT ---
PROCEDURE: US left upper extremity arterial system. CLINICAL INDICATION: Left upper extremity dialysis fistula malfunction. TECHNIQUE: Multiple longitudinal and transverse images of the left upper extremity dialysis fistul a obtained with bernstein scale pulsed Doppler, and color Doppler imaging. COMPARISON: None available FINDINGS: The left brachial artery is widely patent with peak systolic velocity of 46 cm/sec. There is normal triphasic flow. There is a dialysis fistula which is completely thrombosed. IMPRESSION: 1. Patent left brachial artery. 2. Completely thrombosed dialysis fistula in the left arm. RPTAT: QQ .Omar Mg MD, MD Date Time Electronically viewed and signed by .Omar Mg MD, MD on 08/16/2017 08:40 .R/
--- NOTE | 2017-08-16 09:54 | PN ---
DATE: 08/16/2017 SUBJECTIVE DATA: The patient had hemodialysis yesterday, tolerated well. No other events noted. OBJECTIVE DATA: VITAL SIGNS: Blood pressure is 143/65, temperature is 97.9, pulse 56, respirations 16. HEENT: Head is normocephalic. NECK: Supple. HEART: Regular rate. LUNGS: Show diminished breath sounds at the base. ABDOMEN: Soft, nontender to palpation. No rebound or guarding. EXTREMITIES: Negative for clubbing, cyanosis. No edema. DERMATOLOGIC: Clean. No rashes. MUSCULOSKELETAL: No joint effusion. NEUROLOGIC: Unchanged exam. MEDICATIONS: Reviewed. LABORATORY AND DIAGNOSTIC DATA: Reviewed. No new labs. ASSESSMENT AND PLAN: 1. End-stage renal disease. Scheduled for hemodialysis tomorrow. 2. Anemia. Monitor H and H levels. We will give Epogen with dialysis. 3. Mineral bone disorder. Monitor calcium and phosphorus levels. 4. Hypertension. Continue current blood pressure regimen. 5. Sepsis bacteremia. The patient is completing antibiotic course. 6. Left clavicular pain. Continue medical management. 7. General debility. Continue physical therapy. Dictated By: Stanley Tariq DO /shayna/gosia /Document#: [id number]
--- NOTE | 2017-08-16 15:40 | PN ---
Date/Time of Note Date/Time of Note DATE: 08/16/17 TIME: 15:37 Assessment/Plan VTE Prophylaxis VTE Prophylaxis Intervention: SCD's Lines/Catheters IV Catheter Type (from Nrsg): Saline Lock Assessment/Plan Chief Complaint/Hosp Course Assessment/Plan: 61 yo F with h/o ESRD on HD, DM2 presents with several days of painful swelling of proximal L clavicle and chills with HD. Pt found to have S. Aureus bacteremia, MRI imaging of chest non specific but not consistent with OM. PLAN ?consider IR biopsy on Tuesday for chest wall mass?-Will discuss with infectious disease team about obtaining this Have stopped empiric vanc for now giving possible tinnitus symptoms, Now on Rocephin for continued treatment of staph aureus bacteremia. sp ortho [id number] recommendations ID on consult, follow-up their recommendations graft US unremarkable-vascular surgery team on the case as well vascular consult also recommending hematology oncology consult given prior history of breast cancer, will ensure pt has outpatient onc f/u vs inpt, Will also order CTA of the chest per their recommendations to further evaluate left chest mass tagged WBC scan performed, follow-up results of this. renal on cs for HD SSI for DM2 BP control renal diet Of note, incidental findings: Subpleural lung nodules measuring up to 7 mm. Consider f/u: CT at 3-[address] at 18-24 mos. Small nodular density within the posterior aspect of the proximal trachea on the right. Correlation with endoscopy is suggested? Problems: Subjective 24 Hr Interval Summary Free Text/Dictation No acute events overnight, seen by vascular surgery team yesterday. Still waiting for results of tagged WBC scan. Exam/Review of Systems Vital Signs Vitals Vital Signs Date Time Temp Pulse Resp B/P Pulse Ox O2 Delivery O2 Flow Rate FiO2 08/16/17 14:15 97.4 77 18 133/65 99 08/15/17 17:28 Room Air Intake and Output 08/15/17 08/15/17 08/16/17 15:00 23:00 07:00 Intake Total 1620 ml 530 ml Output Total 2000 ml Balance -380 ml 530 ml Exam nad sleeping, resp nonlabored S1, S2 heard abd nondistended no rashes no edema Results Result Diagram: 08/14/17 0537 08/14/1737 Medications Medications Current Medications Ondansetron HCl (Zofran Inj) 4 mg Q6H PRN IV NAUSEA AND/OR VOMITING; Start at 02:30 Acetaminophen (Tylenol Tab) 650 mg Q6H PRN PO PAIN LEVEL 1-3 OR FEVER; Start at 02:30 Docusate Sodium (Colace) 100 mg Q12H PRN PO CONSTIPATION Last administered on 21:16; Admin Dose 100 MG; Start 08/11/17 at 02:30 Bisacodyl (Dulcolax) 5 mg DAILY PRN PO CONSTIPATION Last administered on 08:40; Admin Dose 5 MG; Start 08/11/17 at 02:30 Morphine Sulfate (morphine) 2 mg Q4H PRN IV PAIN LEVEL 1-5; Start 08/11/17 at 02:30 Hydromorphone HCl (Dilaudid) 0.5 mg Q4H PRN IV PAIN LEVEL 6-10 Last administered on 08/11/17 22:02; Admin Dose 0.5 MG; Start 08/11/17 at 02:30 Acetaminophen/ Hydrocodone Bitart ([place] (10/325)) 1 tab Q6H PRN PO PAIN Last administered on 08/13/17 08:48; Admin Dose 1 TAB; Start 08/12/17 at 11:00 Loratadine (Claritin) 10 mg DAILY PO Last administered on 08/16/17 08:41; Admin Dose 10 MG; Start 08/12/17 at 11:00 Metoprolol Tartrate 25 mg 25 mg DAILY PO Last administered on 08/16/17 08:41; Admin Dose 25 MG; Start 08/12/17 at 11:00 Ceftriaxone Sodium (Rocephin) 50 ml @ 100 mls/hr Q24H IVPB Last administered on 08/15/17 18:46; Admin Dose 100 MLS/HR; Start 08/15/17 at 16:00 MARCELLO ARANDA Aug 16, 2017 15:40
[2017-08-16] MEDS: CEFTRIAXONE 1 GM/50 ML (PMX) 50 ML IVPB SCH (16:26)
[2017-08-16] MEDS ORDERED: SOD CHLORIDE 0.9% 100 ML ONE (17:42)
[2017-08-16] MEDS ORDERED: IODIXANOL LOCM 100 ML BTL ONE (17:42)
--- NOTE | 2017-08-16 18:37 | RADRPT ---
PROCEDURE: CTA Chest with contrast and with 3-D reconstructions CLINICAL INDICATION: Left chest mass TECHNIQUE: The study was performed utilizing multidetector CT scanner. Direct spiral axial section s were obtained from the thoracic inlet to the upper abdomen with the use of intravenous contrast ma terial (100 cc Visipaque 320). Sagittal, coronal and 3-D reformations were obtained. The images were reviewed on a PACS workstation. DLP 530.12 mGycm CTDIvol 49.29, 12.42 mGy One or more of the following dose reduction techniques were used: - Automated exposure control. - Adjustment of the mA and/or kV according to patient size. - Use of iterative reconstruction technique. COMPARISON: CT chest from 08/10/2017 FINDINGS: There are no pulmonary emboli. A partially visualized 2.1 x 1.7 cm hyperenhancing lesion is again identified in the midline neck as sociated with the thyroid cartilage which may be accessory thyroid tissue. Soft tissue prominence measuring 8 x 4 mm is again identified on the right lateral aspect of the tra richard on series 3, image 20. The lungs are clear. There is no pleural fluid. There is no pneumothorax. There is mild to moderate cardiomegaly. There is no pericardial fluid. The aorta is within normal limits. There are no enlarged axillary or mediastinal lymph nodes. Marked atrophy of bilateral kidneys is again noted as well as chronic hydronephrosis of the left kid laura. Postsurgical changes are again identified in bilateral axillary regions. Mild soft tissue prominence is again identified around the medial head of the left clavicle, unchanged. It is not associated wi th contrast enhancement. No fluid collections are associated with it. IMPRESSION: No CT evidence for pulmonary embolus. A 2.1 x 1.7 cm hyperenhancing lesion is identified associated with the thyroid cartilage in the midl ine which is unchanged in size since the prior CT study from 08/10/2017. This likely represents acce ssory thyroid tissue. Stable 8 mm soft tissue prominence along the right lateral aspect of the trachea, as above. Endoscop y is recommended for further evaluation. Stable mild to moderate cardiomegaly. Stable mild soft tissue prominence around the medial head of the left clavicle. This is nonspecific and may be related to prior infection/inflammation among other etiologies. Clinical correlation is r ecommended. RPTAT: EE Samuel Olguin, Physician Date Time Electronically viewed and signed by Samuel Olguin, Physician on 08/16/2017 18:36 RA/
--- NOTE | 2017-08-16 21:37 | CONS ---
Date/Time of Note Date/Time of Note DATE: 08/16/17 TIME: 21:35 Assessment/Plan Assessment/Plan Chief Complaint/Hosp Course Alert, complaining of right tinnitus, no fevers, no n/v/d Microbiology: Blood culture persistently growing oxacillin sensitive staph aureus Indwelling's: Right upper extremity AV fistula Antimicrobials: Rocephin Physical examination: This is a well-developed well-nourished elderly [place]ammar[place] woman who is alert in no distress. Head atraumatic normocephalic, sclera anicteric, buccal mucosa pink, dry. Neck is supple, trachea midline. Chest rise symmetrical breath sounds clear, diminished bases. Heart: S1, S2. Abdomen soft bowel sounds present. Extremities without cyanosis, right upper extremity AV fistula with palpable thrill. Assessment: 1. MSSA bacteremia, ?etiology 2. Left sternal clavicular joint and muscle inflammatory findings per MRI, rule out abscess 3. End-stage renal disease, hemodialysis dependent 4. Anemia 5. Hypertension 6. R tinnitus, s/p Vanco dc'd Plan: Patient is hemodynamically and clinically stable, no evidence of osteomyelitis per MRI of the chest, Orto is on case, 2D echo revealed no vegetations, continue abx, await for WBC scan DW patient/staff Problems: Consultation Date/Type/Reason Admit Date/Time Aug 11, 2017 at 01:58 Type of Consultation: ID Exam/Review of Systems Vital Signs Vitals Vital Signs Date Time Temp Pulse Resp B/P Pulse Ox O2 Delivery O2 Flow Rate FiO2 08/16/17 20:09 97.9 81 18 123/75 98 08/15/17 17:28 Room Air Intake and Output 08/15/17 08/15/17 08/16/17 15:00 23:00 07:00 Intake Total 1620 ml 530 ml Output Total 2000 ml Balance -380 ml 530 ml Results Result Diagram: 08/14/1737 08/14/17536 Medications Medications Current Medications Ondansetron HCl (Zofran Inj) 4 mg Q6H PRN IV NAUSEA AND/OR VOMITING; Start at 02:30 Acetaminophen (Tylenol Tab) 650 mg Q6H PRN PO PAIN LEVEL 1-3 OR FEVER; Start at 02:30 Docusate Sodium (Colace) 100 mg Q12H PRN PO CONSTIPATION Last administered on 21:16; Admin Dose 100 MG; Start 08/11/17 at 02:30 Bisacodyl (Dulcolax) 5 mg DAILY PRN PO CONSTIPATION Last administered on 08:40; Admin Dose 5 MG; Start 08/11/17 at 02:30 Morphine Sulfate (morphine) 2 mg Q4H PRN IV PAIN LEVEL 1-5; Start 08/11/17 at 02:30 Hydromorphone HCl (Dilaudid) 0.5 mg Q4H PRN IV PAIN LEVEL 6-10 Last administered on 08/11/17 22:02; Admin Dose 0.5 MG; Start 08/11/17 at 02:30 Acetaminophen/ Hydrocodone Bitart ([place] (10/325)) 1 tab Q6H PRN PO PAIN Last administered on 08/13/17 08:48; Admin Dose 1 TAB; Start 08/12/17 at 11:00 Loratadine (Claritin) 10 mg DAILY PO Last administered on 08/16/17 08:41; Admin Dose 10 MG; Start 08/12/17 at 11:00 Metoprolol Tartrate 25 mg 25 mg DAILY PO Last administered on 08/16/17 08:41; Admin Dose 25 MG; Start 08/12/17 at 11:00 Ceftriaxone Sodium (Rocephin) 50 ml @ 100 mls/hr Q24H IVPB Last administered on 08/16/17 16:26; Admin Dose 100 MLS/HR; Start 08/15/17 at 16:00 MORIAH PRUETT NP Aug 16, 2017 21:37
--- NOTE | 2017-08-16 21:53 | CONS ---
Date/Time of Note Date/Time of Note DATE: 08/16/17 TIME: 21:18 Assessment/Plan Assessment/Plan Chief Complaint/Hosp Course 61 yo female with 1. History of breast cancer -will check tumor markers including CA 15-3 and CA 27-27 to help assess for recurrence 2. Chest wall mass -per vascular surgery, a palpable mass is felt at the Left anterior chest wall mas in the infraclavicular area close to the anterior axillary line. -CTAngio reveals : 1)A partially visualized 2.1 x 1.7 cm hyperenhancing lesion is again identified in the midline neck associated with the thyroid cartilage which may be accessory thyroid tissue. 2)Soft tissue prominence measuring 8 x 4 mm identified on the right lateral aspect of the trachea. 3) Clear Lungs without mediastinal lymphadenopathy 3) soft tissue prominence at left clavicle which on MRI are most consistent with a nonspecific inflammatory process or a phlegmon. -I have reviewed the findings with radiology who does not feels there is something obvious to bx. There recommendation is to repeat the scans in a few months to assess for growth of these masses -My recommendation is for patient to follow up with Dr. Galeano and to have a out patient PET CT. IF there is evidence at that time of a mass, this can be biopsied to assess for recurrence -furthermore, pt is a dialysis patient and would not tolerate most chemotherapies or targeted therapy given her poor renal function. The lungs are clear. There is no pleural fluid. There is no pneumothorax. There is mild to moderate cardiomegaly. There is no pericardial fluid. The aorta is within normal limits. There are no enlarged axillary or mediastinal lymph nodes. Marked atrophy of bilateral kidneys is again noted as well as chronic hydronephrosis of the left kidney. Postsurgical changes are again identified in bilateral axillary regions. Mild soft tissue prominence is again identified around the medial head of the left clavicle, unchanged. It is not associated with contrast enhancement. No fluid collections are associated with it. suspected osteomyelitis: White blood cell count 18,000. 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 The current episode the patient on IV vancomycin. Patient also started cefepime in the ED. Will obtain an MRI of the clavicle without contrast secondary to patient's end-stage renal disease. Problems: Consultation Date/Type/Reason Admit Date/Time Aug 11, 2017 at 01:58 Date of Consultation: Aug 16, 2017 Type of Consultation: Oncology Reason for Consultation chest wall mass/ metastatic cancer of unknown primary Referring Provider: MARCELLO ARANDA of Present Illness 61-year-old female with ESRD on HD, who initially presented to [facility] emergency department for complaints of left shoulder pain for one week prior to presentation. Patient described sharp pain radiating from her left shoulder to the left arm, left neck area and left chest area. Pt has since been evaluated by vascular surgery who has noted outflow venous stenosis in the right brachiocephalic fistula. Also noted is a chest wall mass with subpleural nodules. In the setting of a history of breast cancer we have been consulted for further workup up. On further history patient states she was diagnosed with a stage I Breast CA of the Right breast. She went on to have a mastectomy but did not receive adjuvant chemotherapy, radiation, or hormonal blockade. She is currently being followed by Dr. Derek Galeano who told her last month that there was no evidence of recurrence. Constitutional: no complaints Eyes: no complaints Respiratory: no complaints Cardiovascular: no complaints Gastrointestinal: no complaints Musculoskeletal: bone/joint pain Past Medical History End-stage renal disease, gout, anemia, breast cancer Past Surgical History Right fistula, previous left fistula which is closed because it was not working , left breast mastectomy Family History Significant Family History: no pertinent family hx Social History Alcohol Use: none Smoking Status: Never smoker Drug Use: none Exam/Review of Systems Vital Signs Vitals Vital Signs Date Time Temp Pulse Resp B/P Pulse Ox O2 Delivery O2 Flow Rate FiO2 08/16/17 20:09 97.9 81 18 123/75 98 08/15/17 17:28 Room Air Intake and Output 08/15/17 08/15/17 08/16/17 15:00 23:00 07:00 Intake Total 1620 ml 530 ml Output Total 2000 ml Balance -380 ml 530 ml Exam Constitutional: alert, oriented Psych: no complaints Head: normocephalic Eyes: nl conjunctiva ENMT: nl external ears & nose Neck: non-tender, other (Left inner calvicle inflamed and tender), supple Respiratory: clear to auscultation Cardiovascular: regular rate and rhythm Gastrointestinal: soft Musculoskeletal: nl extremities to inspection Extremities: other (fistula in right upper extremity) Results Result Diagram: 08/14/17 0537 08/14/17 0537 Medications Medications Current Medications Ondansetron HCl (Zofran Inj) 4 mg Q6H PRN IV NAUSEA AND/OR VOMITING; Start at 02:30 Acetaminophen (Tylenol Tab) 650 mg Q6H PRN PO PAIN LEVEL 1-3 OR FEVER; Start at 02:30 Docusate Sodium (Colace) 100 mg Q12H PRN PO CONSTIPATION Last administered on 21:16; Admin Dose 100 MG; Start 08/11/17 at 02:30 Bisacodyl (Dulcolax) 5 mg DAILY PRN PO CONSTIPATION Last administered on 08:40; Admin Dose 5 MG; Start 08/11/17 at 02:30 Morphine Sulfate (morphine) 2 mg Q4H PRN IV PAIN LEVEL 1-5; Start 08/11/17 at 02:30 Hydromorphone HCl (Dilaudid) 0.5 mg Q4H PRN IV PAIN LEVEL 6-10 Last administered on 08/11/17 22:02; Admin Dose 0.5 MG; Start 08/11/17 at 02:30 Acetaminophen/ Hydrocodone Bitart ([place] (10/325)) 1 tab Q6H PRN PO PAIN Last administered on 08/13/17 08:48; Admin Dose 1 TAB; Start 08/12/17 at 11:00 Loratadine (Claritin) 10 mg DAILY PO Last administered on 08/16/17 08:41; Admin Dose 10 MG; Start 08/12/17 at 11:00 Metoprolol Tartrate 25 mg 25 mg DAILY PO Last administered on 08/16/17 08:41; Admin Dose 25 MG; Start 08/12/17 at 11:00 Ceftriaxone Sodium (Rocephin) 50 ml @ 100 mls/hr Q24H IVPB Last administered on 08/16/17 16:26; Admin Dose 100 MLS/HR; Start 08/15/17 at 16:00 SOLEDAD SPRAGUE M.D. Aug 16, 2017 21:31
[2017-08-17] VITALS (12 sets, daily range): BP systolic 96–138; BP diastolic 60–82; PULSE 81–105; RESP 16–18
[2017-08-17 05:34] LABS: BASOPHIL # 0.1 10^3/ul (0.0-0.1); BASOPHILS % 0.9 % (0.0-2.0); EOSINOPHILS # 0.7 10^3/ul (0.0-0.5); EOSINOPHILS % 4.9 % (0.0-7.0); LYMPHOCYTES # 2.9 10^3/ul (0.8-2.9); LYMPHOCYTES % 19.6 % (15.0-51.0); MEAN CORPUSCULAR HEMOGLOBIN 29.9 pg (29.0-33.0); MEAN CORPUSCULAR HGB CONC 31.3 g/dl (32.0-37.0); MEAN CORPUSCULAR VOLUME 95.5 fl (82.0-101.0); MEAN PLATELET VOLUME 8.5 fl (7.4-10.4); MONOCYTE # 1.2 10^3/ul (0.3-0.9); MONOCYTES % 8.2 % (0.0-11.0); NEUTROPHIL # 9.2 10^3/ul (1.6-7.5); NEUTROPHILS % 63.4 % (39.0-77.0); PLATELET COUNT 449 10^3/UL (140-415); RED BLOOD COUNT 3.35 10^6/ul (4.20-5.40); RED CELL DISTRIBUTION WIDTH 13.1 % (11.5-14.5); WHITE BLOOD COUNT 14.6 10^3/ul (4.8-10.8)
[2017-08-17 05:54] LABS: CALCIUM 9.5 mg/dl (8.4-10.2); CREATININE 9.61 mg/dl (0.44-1.00); INR 1.05; POTASSIUM 5.3 mmol/L (3.5-5.1); PROTIME 13.7 Sec (12.2-14.2); PT RATIO 1.1
[2017-08-17 05:55] LABS: PARTIAL THROMBOPLASTIN TIME 33.8 Sec (25.0-35.0)
[2017-08-17] MEDS: SEVELAMER 800 MG TAB PO SCH ×3 (07:35→17:35)
[2017-08-17] MEDS: LORATADINE 10 MG TAB PO SCH (08:45)
[2017-08-17] MEDS: METOPROLOL 25 MG TAB PO SCH (08:45)
--- NOTE | 2017-08-17 11:08 | PN ---
DATE: 08/17/2017 SUBJECTIVE DATA: The patient had hemodialysis yesterday, tolerated well. No other events noted. OBJECTIVE DATA: VITAL SIGNS: Blood pressure 129/71, temperature 98, respiration is 16, pulse is 74. HEENT: Head is normocephalic. NECK: Supple. HEART: Regular rate. LUNGS: Diminished breath sounds at the base. ABDOMEN: Soft, nontender to palpation. No rebound or guarding. EXTREMITIES: Negative for clubbing, cyanosis. No edema. DERMATOLOGIC: Clean. No rashes. MUSCULOSKELETAL: No joint effusion. NEUROLOGIC: No change in exam. MEDICATIONS: Patient medications reviewed. LABORATORY AND DIAGNOSTIC DATA: Shows white count 14.6, hemoglobin 10.0, hematocrit 32.0. Platelet count is 449. Sodium 139, potassium 5.3, BUN 50, creatinine 9.61. ASSESSMENT AND PLAN: 1. End-stage renal disease. We will dialyze the patient today for 3 hours, 3K bath, calcium 2.5. 2. Hypokalemia. Plan is for hemodialysis today. We will dialyze on 2 potassium bath. 3. Anemia. Monitor H and H levels. Will give Epogen with dialysis. 4. Mineral bone disorder. Monitor calcium and phosphorus levels. 5. Hypertension. Continue current blood pressure regimen. 6. Sepsis bacteremia. Continue current antibiotic course. 7. Left clavicular pain. Continue current medical management. Dictated By: Stanley Tariq DO /shayna/mandy /Document#: [id number]
--- NOTE | 2017-08-17 13:06 | CONS ---
Date/Time of Note Date/Time of Note DATE: 08/17/17 TIME: 13:05 Assessment/Plan Assessment/Plan Chief Complaint/Hosp Course Alert sitting up in a chair feels good still with right ear tinnitus and dizziness, no fevers WBC 14.6 H&H 10 and 32 platelets 449, no shift Microbiology: Blood culture admission growing oxacillin sensitive staph aureus repeat blood cultures negative Indwelling's: Right upper extremity AV fistula Antimicrobials: Rocephin Physical examination: This is a well-developed well-nourished elderly [place] woman who is alert in no distress. Head atraumatic normocephalic, sclera anicteric, buccal mucosa pink, dry. Neck is supple, trachea midline. Chest rise symmetrical breath sounds clear, diminished bases. Heart: S1, S2. Abdomen soft bowel sounds present. Extremities without cyanosis, right upper extremity AV fistula with palpable thrill. Assessment: 1. MSSA bacteremia, ?etiology 2. Left sternal clavicular joint and muscle inflammatory findings per MRI, rule out abscess 3. End-stage renal disease, hemodialysis dependent 4. Anemia 5. Hypertension 6. R tinnitus, s/p Vanco dc'd Plan: Patient is hemodynamically and clinically stable, no evidence of osteomyelitis per MRI of the chest, 2D echo revealed no vegetations, awaiting for WBC scan, continue antibiotics. Consider ENT evaluation DW patient/staff Problems: Consultation Date/Type/Reason Admit Date/Time Aug 11, 2017 at 01:58 Type of Consultation: ID Referring Provider: MARCELLO ARANDA Exam/Review of Systems Vital Signs Vitals Vital Signs Date Time Temp Pulse Resp B/P Pulse Ox O2 Delivery O2 Flow Rate FiO2 08/17/17 08:12 98.0 74 16 129/71 98 08/15/17 17:28 Room Air Intake and Output 08/16/17 08/16/17 08/17/17 15:00 23:00 07:00 Intake Total 620 ml 300 ml Balance 620 ml 300 ml Results Result Diagram: 08/17/17 0518 08/17/1718 Results 24 hrs Laboratory Tests Test 08/17/17 05:18 White Blood Count 14.6 H Red Blood Count 3.35 L Hemoglobin 10.0 L Hematocrit 32.0 L Mean Corpuscular Volume 95.5 Mean Corpuscular Hemoglobin 29.9 Mean Corpuscular Hemoglobin Concent 31.3 L Red Cell Distribution Width 13.1 Platelet Count 449 H Mean Platelet Volume 8.5 Neutrophils % 63.4 Lymphocytes % 19.6 Monocytes % 8.2 Eosinophils % 4.9 Basophils % 0.9 Nucleated Red Blood Cells % 0.0 Neutrophils # 9.2 H Lymphocytes # 2.9 Monocytes # 1.2 H Eosinophils # 0.7 H Basophils # 0.1 Nucleated Red Blood Cells # 0.0 Prothrombin Time 13.7 Prothrombin Time Ratio 1.1 INR International Normalized Ratio 1.05 Activated Partial Thromboplast Time 33.8 Sodium Level 139 Potassium Level 5.3 H Chloride Level 99 Carbon Dioxide Level 24 Anion Gap 21 H Blood Urea Nitrogen 50 H Creatinine 9.61 H Glucose Level 85 Calcium Level 9.5 Medications Medications Current Medications Ondansetron HCl (Zofran Inj) 4 mg Q6H PRN IV NAUSEA AND/OR VOMITING; Start at 02:30 Acetaminophen (Tylenol Tab) 650 mg Q6H PRN PO PAIN LEVEL 1-3 OR FEVER; Start at 02:30 Docusate Sodium (Colace) 100 mg Q12H PRN PO CONSTIPATION Last administered on 21:16; Admin Dose 100 MG; Start 08/11/17 at 02:30 Bisacodyl (Dulcolax) 5 mg DAILY PRN PO CONSTIPATION Last administered on 08:40; Admin Dose 5 MG; Start 08/11/17 at 02:30 Morphine Sulfate (morphine) 2 mg Q4H PRN IV PAIN LEVEL 1-5; Start 08/11/17 at 02:30 Hydromorphone HCl (Dilaudid) 0.5 mg Q4H PRN IV PAIN LEVEL 6-10 Last administered on 08/11/17 22:02; Admin Dose 0.5 MG; Start 08/11/17 at 02:30 Acetaminophen/ Hydrocodone Bitart ([place] (10/325)) 1 tab Q6H PRN PO PAIN Last administered on 08/13/17 08:48; Admin Dose 1 TAB; Start 08/12/17 at 11:00 Loratadine (Claritin) 10 mg DAILY PO Last administered on 08/16/17 08:41; Admin Dose 10 MG; Start 08/12/17 at 11:00 Metoprolol Tartrate 25 mg 25 mg DAILY PO Last administered on 08/16/17 08:41; Admin Dose 25 MG; Start 08/12/17 at 11:00 Ceftriaxone Sodium (Rocephin) 50 ml @ 100 mls/hr Q24H IVPB Last administered on 08/16/17 16:26; Admin Dose 100 MLS/HR; Start 08/15/17 at 16:00 MORIAH PRUETT NP Aug 17, 2017 13:06
[2017-08-17] MEDS ORDERED: LEVOFLOXACIN 500MG/D5W (PMX) 100 ML IVPB SCH (15:00)
--- NOTE | 2017-08-17 15:31 | PN ---
Date/Time of Note Date/Time of Note DATE: 08/17/17 TIME: 15:21 Assessment/Plan VTE Prophylaxis VTE Prophylaxis Intervention: SCD's Lines/Catheters IV Catheter Type (from Nrs): Saline Lock Assessment/Plan Chief Complaint/Hosp Course Assessment/Plan: 61 yo F with h/o ESRD on HD, DM2 presents with several days of painful swelling of proximal L clavicle and chills with HD. Pt found to have S. Aureus bacteremia, MRI imaging of chest non specific but not consistent with OM. PLAN - Appreciate hematology oncology consult, after speaking with interventional radiology team as well, no need for left clavicle biopsy at this time. Follow- up tumor markers ordered by hematology oncology team given patient's prior history of breast cancer. Recommendation is to repeat the scans in a few months to assess for growth of these masses mentioned above. Also, recommendation to follow-up with Dr. Galeano and to have an out patient PET CT. - Have stopped empiric vanc for now giving possible tinnitus symptoms, Now on Rocephin for continued treatment of staph aureus bacteremia. - ID on consult, follow-up their recommendations particularly regarding length of treatment given staph bacteremia - Given CTA of the chest findings regarding thyroid and tracheal masses, will also get ENT consult to further evaluate these. - tagged WBC scan actually was not performed yet, as isotope will not be ready until Tuesday (so in 3 days), in the meantime monitor for now, continue antibiotics - renal on cs for HD - SSI for DM2 - BP control Of note, incidental findings: Subpleural lung nodules measuring up to 7 mm. Consider f/u: CT at 3-[address] at 18-24 mos. Problems: Subjective 24 Hr Interval Summary Free Text/Dictation Patient still complaining of some dizziness symptoms and ringing in the right ear, although slightly improved since yesterday. About to get dialysis today. Still not able to get tagged WBC scan, as the isotope will not be ready until Tuesday so that is the earliest it can be done (originally we thought it had been done yesterday, but that was a mistake). Had CTA chest performed yesterday , and seen by hematology oncology team yesterday. Exam/Review of Systems Vital Signs Vitals Vital Signs Date Time Temp Pulse Resp B/P Pulse Ox O2 Delivery O2 Flow Rate FiO2 08/17/17 14:32 97.7 80 18 132/73 99 08/15/17 17:28 Room Air Intake and Output 08/16/17 08/16/17 08/17/17 15:00 23:00 07:00 Intake Total 620 ml 300 ml Balance 620 ml 300 ml Exam Lying in bed, answering questions verbally, no acute distress resp nonlabored S1, S2 heard abd nondistended no focal deficits no edema Results Result Diagram: 08/17/1718 08/17/1718 Results 24 hrs Laboratory Tests Test 08/17/17 05:18 White Blood Count 14.6 H Red Blood Count 3.35 L Hemoglobin 10.0 L Hematocrit 32.0 L Mean Corpuscular Volume 95.5 Mean Corpuscular Hemoglobin 29.9 Mean Corpuscular Hemoglobin Concent 31.3 L Red Cell Distribution Width 13.1 Platelet Count 449 H Mean Platelet Volume 8.5 Neutrophils % 63.4 Lymphocytes % 19.6 Monocytes % 8.2 Eosinophils % 4.9 Basophils % 0.9 Nucleated Red Blood Cells % 0.0 Neutrophils # 9.2 H Lymphocytes # 2.9 Monocytes # 1.2 H Eosinophils # 0.7 H Basophils # 0.1 Nucleated Red Blood Cells # 0.0 Prothrombin Time 13.7 Prothrombin Time Ratio 1.1 INR International Normalized Ratio 1.05 Activated Partial Thromboplast Time 33.8 Sodium Level 139 Potassium Level 5.3 H Chloride Level 99 Carbon Dioxide Level 24 Anion Gap 21 H Blood Urea Nitrogen 50 H Creatinine 9.61 H Glucose Level 85 Calcium Level 9.5 Medications Medications Current Medications Ondansetron HCl (Zofran Inj) 4 mg Q6H PRN IV NAUSEA AND/OR VOMITING; Start at 02:30 Acetaminophen (Tylenol Tab) 650 mg Q6H PRN PO PAIN LEVEL 1-3 OR FEVER; Start at 02:30 Docusate Sodium (Colace) 100 mg Q12H PRN PO CONSTIPATION Last administered on 21:16; Admin Dose 100 MG; Start 08/11/17 at 02:30 Bisacodyl (Dulcolax) 5 mg DAILY PRN PO CONSTIPATION Last administered on 08:40; Admin Dose 5 MG; Start 08/11/17 at 02:30 Morphine Sulfate (morphine) 2 mg Q4H PRN IV PAIN LEVEL 1-5; Start 08/11/17 at 02:30 Hydromorphone HCl (Dilaudid) 0.5 mg Q4H PRN IV PAIN LEVEL 6-10 Last administered on 08/11/17 22:02; Admin Dose 0.5 MG; Start 08/11/17 at 02:30 Acetaminophen/ Hydrocodone Bitart ([place] (10/325)) 1 tab Q6H PRN PO PAIN Last administered on 08/13/17 08:48; Admin Dose 1 TAB; Start 08/12/17 at 11:00 Loratadine (Claritin) 10 mg DAILY PO Last administered on 08/16/17 08:41; Admin Dose 10 MG; Start 08/12/17 at 11:00 Metoprolol Tartrate 25 mg 25 mg DAILY PO Last administered on 08/16/17 08:41; Admin Dose 25 MG; Start 08/12/17 at 11:00 Ceftriaxone Sodium (Rocephin) 50 ml @ 100 mls/hr Q24H IVPB Last administered on 08/16/17 16:26; Admin Dose 100 MLS/HR; Start 08/15/17 at 16:00 MARCELLO ARANDA Aug 17, 2017 15:31
[2017-08-17] MEDS: CEFTRIAXONE 1 GM/50 ML (PMX) 50 ML IVPB SCH ×2 (16:00→18:40)
[2017-08-18 02:16] VITALS: BP 117/68; RESP 16
[2017-08-18] MEDS: SEVELAMER 800 MG TAB PO SCH ×3 (08:07→17:39)
[2017-08-18] MEDS: LORATADINE 10 MG TAB PO SCH (08:07)
[2017-08-18] MEDS: METOPROLOL 25 MG TAB PO SCH (08:07)
--- NOTE | 2017-08-18 08:29 | PN ---
DATE: 08/18/2017 SUBJECTIVE: The patient is stable. No events overnight. Patient had hemodialysis yesterday, tolerated it well. OBJECTIVE DATA: VITAL SIGNS: Blood pressure is 132/73, pulse 105, respirations 18, temperature 98.0 HEENT: Head is normocephalic. NECK: Supple. HEART: Regular rate. LUNGS: Diminished breath sounds at the base. ABDOMEN: Soft, nontender to palpation. No rebound or guarding. EXTREMITIES: Negative for clubbing, cyanosis. No edema. DERMATOLOGIC: Clean. No rashes. MUSCULOSKELETAL: No joint effusions. NEUROLOGIC: No change in exam. MEDICATIONS: The patient's medications have been reviewed. LABORATORY AND DIAGNOSTIC DATA: Reviewed. ASSESSMENT AND PLAN: 1. End-stage renal disease. Plan for hemodialysis tomorrow. 2. Hyperkalemia. Continue dialysis on a low potassium bath. Continue low-potassium diet. 3. Anemia. Monitor H and H levels. We will give Epogen as needed. 4. Mineral bone disorder. Monitor calcium and phosphorus levels. 5. Hypertension. Continue current blood pressure regimen. 6. Sepsis, bacteremia, source unclear. Continue antibiotic regimen. WBC scan is pending. 7. Left clavicular pain. The patient has a history of left breast cancer. No need for biopsy at this time. We will follow up tumor markers. 8. Tinnitus. Continue to monitor. Consider ENT evaluation. Antibiotics were discontinued. 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 Follow up with ENT. Dictated By: Stanley Tariq DO /shayna/mandy /Document#: [id number]
[2017-08-18 09:02] VITALS: BP 106/67; RESP 16
--- NOTE | 2017-08-18 12:38 | CONS ---
Date/Time of Note Date/Time of Note DATE: 08/18/17 TIME: 12:38 Assessment/Plan Assessment/Plan Chief Complaint/Hosp Course Awake, feels good, no fevers Microbiology: Blood culture admission growing oxacillin sensitive staph aureus repeat blood cultures negative Indwelling's: Right upper extremity AV fistula Antimicrobials: Rocephin Physical examination: This is a well-developed well-nourished elderly [place] woman who is alert in no distress. Head atraumatic normocephalic, sclera anicteric, buccal mucosa pink, dry. Neck is supple, trachea midline. Chest rise symmetrical breath sounds clear, diminished bases. Heart: S1, S2. Abdomen soft bowel sounds present. Extremities without cyanosis, right upper extremity AV fistula with palpable thrill. Assessment: 1. MSSA bacteremia, ?etiology 2. Left sternal clavicular joint and muscle inflammatory findings per MRI, rule out abscess 3. End-stage renal disease, hemodialysis dependent 4. Anemia 5. Hypertension 6. R tinnitus, s/p Vanco dc'd Plan: Remains stable, no evidence of osteomyelitis per MRI of the chest, 2D echo revealed no vegetations, awaiting for WBC scan, continue antibiotics. DW patient/staff Problems: Consultation Date/Type/Reason Admit Date/Time Aug 11, 2017 at 01:58 Type of Consultation: ID Referring Provider: MARCELLO ARANDA Exam/Review of Systems Vital Signs Vitals Vital Signs Date Time Temp Pulse Resp B/P Pulse Ox O2 Delivery O2 Flow Rate FiO2 08/18/17 09:02 97.9 71 16 106/67 97 08/15/17 17:28 Room Air Intake and Output 08/17/17 08/17/17 08/18/17 15:00 23:00 07:00 Intake Total 860 ml 120 ml Output Total 2000 ml Balance -1140 ml 120 ml Results Result Diagram: 08/17/1751708/17/17517 Medications Medications Current Medications Ondansetron HCl (Zofran Inj) 4 mg Q6H PRN IV NAUSEA AND/OR VOMITING; Start at 02:30 Acetaminophen (Tylenol Tab) 650 mg Q6H PRN PO PAIN LEVEL 1-3 OR FEVER; Start at 02:30 Docusate Sodium (Colace) 100 mg Q12H PRN PO CONSTIPATION Last administered on 21:16; Admin Dose 100 MG; Start 08/11/17 at 02:30 Bisacodyl (Dulcolax) 5 mg DAILY PRN PO CONSTIPATION Last administered on 08:40; Admin Dose 5 MG; Start 08/11/17 at 02:30 Morphine Sulfate (morphine) 2 mg Q4H PRN IV PAIN LEVEL 1-5; Start 08/11/17 at 02:30 Hydromorphone HCl (Dilaudid) 0.5 mg Q4H PRN IV PAIN LEVEL 6-10 Last administered on 08/11/17 22:02; Admin Dose 0.5 MG; Start 08/11/17 at 02:30 Acetaminophen/ Hydrocodone Bitart ([place] (10/325)) 1 tab Q6H PRN PO PAIN Last administered on 08/13/17 08:48; Admin Dose 1 TAB; Start 08/12/17 at 11:00 Loratadine (Claritin) 10 mg DAILY PO Last administered on 08/18/17 08:07; Admin Dose 10 MG; Start 08/12/17 at 11:00 Metoprolol Tartrate 25 mg 25 mg DAILY PO Last administered on 08/16/17 08:41; Admin Dose 25 MG; Start 08/12/17 at 11:00 Ceftriaxone Sodium (Rocephin) 50 ml @ 100 mls/hr Q24H IVPB Last administered on 08/17/17 18:40; Admin Dose 100 MLS/HR; Start 08/15/17 at 16:00 MORIAH PRUETT NP Aug 18, 2017 12:38
--- NOTE | 2017-08-18 13:17 | PN ---
Date/Time of Note Date/Time of Note DATE: 08/18/17 TIME: 13:14 Assessment/Plan VTE Prophylaxis VTE Prophylaxis Intervention: SCD's Lines/Catheters [facility]from [facility] Saline Lock Assessment/Plan Chief Complaint/Hosp Course Assessment/Plan: 61 yo F with h/o ESRD on HD, DM2 presents with several days of painful swelling of proximal L clavicle and chills with HD. Pt found to have S. Aureus bacteremia, MRI imaging of chest non specific but not consistent with OM. PLAN - Appreciate hematology oncology consult, after speaking with interventional radiology team as well, no need for left clavicle biopsy at this time. Follow- up tumor markers ordered by hematology oncology team given patient's prior history of breast cancer. Recommendation is to repeat the scans in a few months to assess for growth of these masses mentioned above. Also, recommendation to follow-up with Dr. Galeano and to have an out patient PET CT. - Have stopped empiric vanc for now giving possible tinnitus symptoms, Now on Rocephin for continued treatment of staph aureus bacteremia. - ID on consult, follow-up their recommendations particularly regarding length of treatment given staph bacteremia - Given CTA of the chest findings regarding thyroid and tracheal masses, per ENT consult recommendations, they are ordering ultrasound guided needle biopsy of tracheal mass to further evaluate - tagged WBC scan actually was not performed yet, as isotope will not be ready until Tuesday (so in 2 days), in the meantime monitor for now, continue antibiotics - renal on cs for HD - SSI for DM2 - BP control Of note, incidental findings: Subpleural lung nodules measuring up to 7 mm. Consider f/u: CT at 3-[address] at 18-24 mos. Problems: Subjective 24 Hr Interval Summary Free Text/Dictation Patient had hemodialysis yesterday. Awaiting possible ultrasound guided needle biopsy of tracheal mass, ordered by ENT doctor. Refused blood draws this morning. Exam/Review of Systems Vital Signs Vitals Vital Signs Date Time Temp Pulse Resp B/P Pulse Ox O2 Delivery O2 Flow Rate FiO2 08/18/17 09:02 97.9 71 16 106/67 97 08/15/17 17:28 Room Air Intake and Output 08/17/17 08/17/17 08/18/17 15:00 23:00 07:00 Intake Total 860 ml 120 ml Output Total 2000 ml Balance -1140 ml 120 ml Exam Lying in bed, answering questions verbally, no acute distress resp nonlabored S1, S2 heard abd nondistended no focal deficits no edema Results Result Diagram: 08/17/1751708/17/17517 Medications Medications Current Medications Ondansetron HCl (Zofran Inj) 4 mg Q6H PRN IV NAUSEA AND/OR VOMITING; Start at 02:30 Acetaminophen (Tylenol Tab) 650 mg Q6H PRN PO PAIN LEVEL 1-3 OR FEVER; Start at 02:30 Docusate Sodium (Colace) 100 mg Q12H PRN PO CONSTIPATION Last administered on 21:16; Admin Dose 100 MG; Start 08/11/17 at 02:30 Bisacodyl (Dulcolax) 5 mg DAILY PRN PO CONSTIPATION Last administered on 08:40; Admin Dose 5 MG; Start 08/11/17 at 02:30 Morphine Sulfate (morphine) 2 mg Q4H PRN IV PAIN LEVEL 1-5; Start 08/11/17 at 02:30 Hydromorphone HCl (Dilaudid) 0.5 mg Q4H PRN IV PAIN LEVEL 6-10 Last administered on 08/11/17 22:02; Admin Dose 0.5 MG; Start 08/11/17 at 02:30 Acetaminophen/ Hydrocodone Bitart ([place] (10/325)) 1 tab Q6H PRN PO PAIN Last administered on 08/13/17 08:48; Admin Dose 1 TAB; Start 08/12/17 at 11:00 Loratadine (Claritin) 10 mg DAILY PO Last administered on 08/18/17 08:07; Admin Dose 10 MG; Start 08/12/17 at 11:00 Metoprolol Tartrate 25 mg 25 mg DAILY PO Last administered on 08/16/17 08:41; Admin Dose 25 MG; Start 08/12/17 at 11:00 Ceftriaxone Sodium (Rocephin) 50 ml @ 100 mls/hr Q24H IVPB Last administered on 08/17/17 18:40; Admin Dose 100 MLS/HR; Start 08/15/17 at 16:00 MARCELLO ARANDA Aug 18, 2017 13:17
--- NOTE | 2017-08-18 13:52 | CONS ---
DATE OF ADMISSION: 08/11/2017 DATE OF CONSULTATION: 08/18/2017 REASON FOR CONSULTATION: Neck mass. HISTORY OF PRESENT ILLNESS: The patient is a 61-year-old female with a past medical history of end-stage renal disease on dialysis, with AV fistula. History of breast cancer, anemia, who presents to [facility] with shoulder pain and sepsis. On imaging studies she was thought to have a anterior thyroid mass, in addition to a right-sided small tracheal lesion. Consultation is obtained for evaluation. PAST MEDICAL HISTORY: As stated above. In addition to thyroid surgery and thyroid disease, anemia, gout, end-stage renal disease and breast cancer. FAMILY HISTORY: Noncontributory. SOCIAL HISTORY: Does not drink or smoke. MEDICATION: Reviewed. REVIEW OF SYSTEMS: A 14 point review of systems is conducted with positive mentioned in the HPI as noted. PHYSICAL EXAMINATION: GENERAL APPEARANCE: The patient is a well-developed, well- nourished female in no acute distress. VITAL SIGNS: Blood pressure 113/70, respirations are 18, pulse is 100. HEENT: Head is normocephalic, atraumatic. Tympanic membranes were clear. Anterior rhinoscopy is clear. Oral pharynx and cavity is clear. NECK: Supple, full range of motion. There is an anterior cervical scar with a minimal fullness. NEUROLOGIC: Cranial nerves II-XII are grossly intact. LABORATORY: Reviewed. IMAGING: CT scan is also reviewed of the neck. IMPRESSION: The patient is a [id number] with a history of thyroid surgery. Now with imaging studies demonstrating the possibility of a thyroid residual mass, and tracheal lesion. RECOMMENDATIONS: It appears that on review of the images, the right-sided tracheal lesion may be related to an extra tracheal process. I suggest an ultrasound guided fine needle aspiration of the mass to be performed by radiology. There are 2 masses, both of which should be amendable to needle biopsy. If not, the patient will benefit from laryngoscopy and tracheoscopy with possible biopsies which would need to be under general anesthesia. Please contact me once the results of the needle biopsy are available. If there are no findings, primary team should consider the possibility of general anesthesia for further evaluation of these lesions. Dictated By: Paz Nelson MD /shayna/denae /Document#: [id number]
[2017-08-18 14:00] VITALS: BP 120/75; RESP 18
[2017-08-18] MEDS: CEFTRIAXONE 1 GM/50 ML (PMX) 50 ML IVPB SCH (17:39)
[2017-08-18 17:54] VITALS: BP 120/75; RESP 18
[2017-08-18 20:00] VITALS: BP 118/71; RESP 20
[2017-08-19] VITALS (10 sets, daily range): BP systolic 97–130; BP diastolic 55–71; PULSE 75–81; RESP 18–20
[2017-08-19] MEDS: SEVELAMER 800 MG TAB PO SCH ×3 (08:40→17:36)
[2017-08-19] MEDS ORDERED: MECLIZINE 12.5 MG TAB PO ONE (11:00)
--- NOTE | 2017-08-19 11:32 | PN ---
DATE: 08/19/2017 SUBJECTIVE DATA: The patient is stable. No events overnight. No fevers, chills, nausea, vomiting. OBJECTIVE DATA: VITAL SIGNS: Blood pressure 130/71, temperature 97.9, pulse 88, respirations 20. HEENT: Head is normocephalic. NECK: Supple. HEART: Regular rate. LUNGS: Diminished breath sounds at the base. ABDOMEN: Soft, nontender to palpation. No rebound or guarding. EXTREMITIES: Negative for clubbing, cyanosis. No edema. DERMATOLOGIC: No rashes. MUSCULOSKELETAL: No joint effusion. NEUROLOGIC: No change in exam. MEDICATIONS: The patient's medications have been reviewed. LABORATORY AND DIAGNOSTIC DATA: Laboratory data has been reviewed. No new labs. ASSESSMENT AND PLAN: 1. Endstage renal disease. Plan for hemodialysis today. 2. Hypokalemia. Continue dialysis and low-potassium bath. 3. Anemia. Monitor hemoglobin and hematocrit levels. 4. Mineral bone disorder. Monitor calcium and phosphorus levels. 5. Hypertension. Continue current blood pressure regimen. 6. Sepsis bacteremia. Continue antibiotic therapy. A WBC scan is pending. 7. Left upper extremity pain with history of breast cancer. Continue to monitor. Follow up tumor markers. 8. Tinnitus. Continue to monitor. Medical management. Follow up with ENT. 9. History of thyroid S. Follow up with ENT. Dictated By: Stanley Tariq DO /shayna/shlomo /Document#: [id number]
--- NOTE | 2017-08-19 13:54 | PN ---
Date/Time of Note Date/Time of Note DATE: 08/19/17 TIME: 13:51 Assessment/Plan VTE Prophylaxis VTE Prophylaxis Intervention: SCD's Lines/Catheters IV C[facility] Type (from [facility]): Saline Lock Assessment/Plan Chief Complaint/Hosp Course Assessment/Plan: 61 yo F with h/o ESRD on HD, DM2 presents with several days of painful swelling of proximal L clavicle and chills with HD. Pt found to have S. Aureus bacteremia, MRI imaging of chest non specific but not consistent with OM. PLAN - Appreciate hematology oncology consult, after speaking with interventional radiology team as well, no need for left clavicle biopsy at this time. Follow- up tumor markers ordered by hematology oncology team given patient's prior history of breast cancer. Recommendation is to repeat the scans in a few months to assess for growth of these masses mentioned above. Also, recommendation to follow-up with Dr. Galeano and to have an out patient PET CT. - Have stopped empiric vanc for now giving possible tinnitus symptoms, Now on Rocephin for continued treatment of staph aureus bacteremia. - ID on consult, follow-up their recommendations particularly regarding length of treatment given staph bacteremia - Given CTA of the chest findings regarding thyroid and tracheal masses, per ENT consult recommendations, they ordered ultrasound guided needle biopsy of tracheal mass to further evaluate, however as stated before patient refused this yesterday. Monitor for now. - tagged WBC scan actually was not performed yet, as isotope will not be ready until Tuesday (so in 1 day), in the meantime monitor for now, continue antibiotics - renal on cs for HD - SSI for DM2 - BP control Of note, incidental findings: Subpleural lung nodules measuring up to 7 mm. Consider f/u: CT at 3-[address] at 18-24 mos. Problems: Subjective 24 Hr Interval Summary Free Text/Dictation Patient refused needle biopsy of tracheal mass. Getting dialysis today. Complaining of some dizziness symptoms slightly improved with Antivert medication Exam/Review of Systems Vital Signs Vitals Vital Signs Date Time Temp Pulse Resp B/P Pulse Ox O2 Delivery O2 Flow Rate FiO2 08/19/17 08:34 97.7 87 18 97/58 99 08/15/17 17:28 Room Air Intake and Output 08/18/17 08/18/17 08/19/17 15:00 23:00 07:00 Intake Total 250 ml 360 ml Balance 250 ml 360 ml Exam Lying in bed, answering questions verbally, no acute distress resp nonlabored S1, S2 heard abd nondistended no focal deficits no edema Results Result Diagram: 08/17/1751708/17/17517 Medications Medications Current Medications Ondansetron HCl (Zofran Inj) 4 mg Q6H PRN IV NAUSEA AND/OR VOMITING; Start at 02:30 Acetaminophen (Tylenol Tab) 650 mg Q6H PRN PO PAIN LEVEL 1-3 OR FEVER; Start at 02:30 Docusate Sodium (Colace) 100 mg Q12H PRN PO CONSTIPATION Last administered on 21:16; Admin Dose 100 MG; Start 08/11/17 at 02:30 Bisacodyl (Dulcolax) 5 mg DAILY PRN PO CONSTIPATION Last administered on 08:40; Admin Dose 5 MG; Start 08/11/17 at 02:30 Morphine Sulfate (morphine) 2 mg Q4H PRN IV PAIN LEVEL 1-5; Start 08/11/17 at 02:30 Hydromorphone HCl (Dilaudid) 0.5 mg Q4H PRN IV PAIN LEVEL 6-10 Last administered on 08/11/17 22:02; Admin Dose 0.5 MG; Start 08/11/17 at 02:30 Acetaminophen/ Hydrocodone Bitart ([place] (10/325)) 1 tab Q6H PRN PO PAIN Last administered on 08/13/17 08:48; Admin Dose 1 TAB; Start 08/12/17 at 11:00 Loratadine (Claritin) 10 mg DAILY PO Last administered on 08/18/17 08:07; Admin Dose 10 MG; Start 08/12/17 at 11:00 Metoprolol Tartrate 25 mg 25 mg DAILY PO Last administered on 08/16/17 08:41; Admin Dose 25 MG; Start 08/12/17 at 11:00 Ceftriaxone Sodium (Rocephin) 50 ml @ 100 mls/hr Q24H IVPB Last administered on 08/18/17 17:39; Admin Dose 100 MLS/HR; Start 08/15/17 at 16:00 MARCELLO ARANDA Aug 19, 2017 13:54
[2017-08-19 15:09] LABS: BASOPHIL # 0.1 10^3/ul (0.0-0.1); BASOPHILS % 0.8 % (0.0-2.0); EOSINOPHILS # 0.8 10^3/ul (0.0-0.5); EOSINOPHILS % 5.5 % (0.0-7.0); HEMATOCRIT 26.2 % (37.0-47.0); HEMOGLOBIN 8.5 g/dl (12.0-16.0); LYMPHOCYTES # 3.4 10^3/ul (0.8-2.9); LYMPHOCYTES % 24.2 % (15.0-51.0); MEAN CORPUSCULAR HGB CONC 32.4 g/dl (32.0-37.0); MEAN CORPUSCULAR VOLUME 95.6 fl (82.0-101.0); MEAN PLATELET VOLUME 8.6 fl (7.4-10.4); MONOCYTE # 1.2 10^3/ul (0.3-0.9); MONOCYTES % 8.2 % (0.0-11.0); NEUTROPHIL # 8.4 10^3/ul (1.6-7.5); NEUTROPHILS % 59.6 % (39.0-77.0); PLATELET COUNT 388 10^3/UL (140-415); RED BLOOD COUNT 2.74 10^6/ul (4.20-5.40); RED CELL DISTRIBUTION WIDTH 13.2 % (11.5-14.5)
[2017-08-19 15:27] LABS: CALCIUM 8.6 mg/dl (8.4-10.2); CREATININE 11.24 mg/dl (0.44-1.00); POTASSIUM 4.5 mmol/L (3.5-5.1)
[2017-08-19] MEDS: CEFTRIAXONE 1 GM/50 ML (PMX) 50 ML IVPB SCH (17:33)
[2017-08-19] MEDS: CARBAMIDE PEROXIDE 6.5% 15ML OTIC BOTH EARS SCH ×2 (17:36→21:07)
[2017-08-19] MEDS: LORATADINE 10 MG TAB PO SCH (17:36)
[2017-08-19] MEDS: METOPROLOL 25 MG TAB PO SCH (17:42)
--- NOTE | 2017-08-19 21:17 | CONS ---
Date/Time of Note Date/Time of Note DATE: 08/19/17 TIME: 21:12 Assessment/Plan Assessment/Plan Chief Complaint/Hosp Course 61 yo female with 1. History of breast cancer - CA 27-27 tis normal making breast cancer less likely 2. Chest wall mass -per vascular surgery, a palpable mass is felt at the Left anterior chest wall mas in the infraclavicular area close to the anterior axillary line. -CTAngio reveals : 1)A partially visualized 2.1 x 1.7 cm hyperenhancing lesion is again identified in the midline neck associated with the thyroid cartilage which may be accessory thyroid tissue. 2)Soft tissue prominence measuring 8 x 4 mm identified on the right lateral aspect of the trachea. 3) Clear Lungs without mediastinal lymphadenopathy 3) soft tissue prominence at left clavicle which on MRI are most consistent with a nonspecific inflammatory process or a phlegmon. -I have reviewed the findings with radiology who does not feels there is something obvious to bx. There recommendation is to repeat the scans in a few months to assess for growth of these masses -My recommendation is for patient to follow up with Dr. Galeano and to have a out patient PET CT. IF there is evidence at that time of a mass, this can be biopsied to assess for recurrence -furthermore, pt is a dialysis patient and would not tolerate most chemotherapies or targeted therapy given her poor renal function. 3. Thyroid Mass -evaluated by ENT -pt has refused bx The lungs are clear. There is no pleural fluid. There is no pneumothorax. There is mild to moderate cardiomegaly. There is no pericardial fluid. The aorta is within normal limits. There are no enlarged axillary or mediastinal lymph nodes. Marked atrophy of bilateral kidneys is again noted as well as chronic hydronephrosis of the left kidney. Postsurgical changes are again identified in bilateral axillary regions. Mild soft tissue prominence is again identified around the medial head of the left clavicle, unchanged. It is not associated with contrast enhancement. No fluid collections are associated with it. suspected osteomyelitis: White blood cell count 18,000. 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 The current episode the patient on IV vancomycin. Patient also started cefepime in the ED. Will obtain an MRI of the clavicle without contrast secondary to patient's end-stage renal disease. Problems: Consultation Date/Type/Reason Admit Date/Time Aug 11, 2017 at 01:58 Initial Consult Date 08/16/17 Type of Consultation: Oncology Reason for Consultation concern for recurrent breast cancer Referring Provider: MARCELLO ARANDA 24 HR Interval Summary Free Text/Dictation pt currently feels well. continues on IV antibiotics. refused thyroid bx Detailed Summary Eyes: no complaints ENT: no complaints Respiratory: no complaints Cardiovascular: no complaints Gastrointestinal: no complaints Genitourinary: no complaints Musculoskeletal: bone/joint pain Skin: no complaints Neurologic: no complaints Psychological: depression Exam/Review of Systems Vital Signs Vitals Vital Signs Date Time Temp Pulse Resp B/P Pulse Ox O2 Delivery O2 Flow Rate FiO2 08/19/17 20:00 97.9 88 20 104/69 100 08/15/17 17:28 Room Air Intake and Output 08/18/17 08/18/17 08/19/17 15:00 23:00 07:00 Intake Total 250 ml 360 ml Balance 250 ml 360 ml Exam Constitutional: alert, oriented Psych: no complaints Head: normocephalic Eyes: nl conjunctiva ENMT: nl external ears & nose Neck: non-tender, supple Respiratory: clear to auscultation Cardiovascular: regular rate and rhythm Gastrointestinal: soft Musculoskeletal: nl extremities to inspection Results Result Diagram: 08/19/17 1425 08/19/17 1425 Results 24 hrs Laboratory Tests Test 08/19/17 14:25 White Blood Count 14.0 H Red Blood Count 2.74 L Hemoglobin 8.5 L Hematocrit 26.2 L Mean Corpuscular Volume 95.6 Mean Corpuscular Hemoglobin 31.0 Mean Corpuscular Hemoglobin Concent 32.4 Red Cell Distribution Width 13.2 Platelet Count 388 Mean Platelet Volume 8.6 Neutrophils % 59.6 Lymphocytes % 24.2 Monocytes % 8.2 Eosinophils % 5.5 Basophils % 0.8 Nucleated Red Blood Cells % 0.0 Neutrophils # 8.4 H Lymphocytes # 3.4 H Monocytes # 1.2 H Eosinophils # 0.8 H Basophils # 0.1 Nucleated Red Blood Cells # 0.0 Sodium Level 138 Potassium Level 4.5 Chloride Level 102 Carbon Dioxide Level 23 Anion Gap 18 H Blood Urea Nitrogen 62 H Creatinine 11.24 H Glucose Level 110 Calcium Level 8.6 Medications Medications Current Medications Ondansetron HCl (Zofran Inj) 4 mg Q6H PRN IV NAUSEA AND/OR VOMITING; Start at 02:30 Acetaminophen (Tylenol Tab) 650 mg Q6H PRN PO PAIN LEVEL 1-3 OR FEVER; Start at 02:30 Docusate Sodium (Colace) 100 mg Q12H PRN PO CONSTIPATION Last administered on 21:16; Admin Dose 100 MG; Start 08/11/17 at 02:30 Bisacodyl (Dulcolax) 5 mg DAILY PRN PO CONSTIPATION Last administered on 08:40; Admin Dose 5 MG; Start 08/11/17 at 02:30 Morphine Sulfate (morphine) 2 mg Q4H PRN IV PAIN LEVEL 1-5; Start 08/11/17 at 02:30 Hydromorphone HCl (Dilaudid) 0.5 mg Q4H PRN IV PAIN LEVEL 6-10 Last administered on 08/11/17 22:02; Admin Dose 0.5 MG; Start 08/11/17 at 02:30 Acetaminophen/ Hydrocodone Bitart ([place] (10/325)) 1 tab Q6H PRN PO PAIN Last administered on 08/13/17 08:48; Admin Dose 1 TAB; Start 08/12/17 at 11:00 Loratadine (Claritin) 10 mg DAILY PO Last administered on 08/19/17 17:36; Admin Dose 10 MG; Start 08/12/17 at 11:00 Metoprolol Tartrate 25 mg 25 mg DAILY PO Last administered on 08/16/17 08:41; Admin Dose 25 MG; Start 08/12/17 at 11:00 Ceftriaxone Sodium (Rocephin) 50 ml @ 100 mls/hr Q24H IVPB Last administered on 08/19/17 17:33; Admin Dose 100 MLS/HR; Start 08/15/17 at 16:00 Carbamide Peroxide (Debrox Otic) 3 drop BID BOTH EARS Last administered on 08/19 21:07; Admin Dose 3 DROP; Start 08/19/17 at 14:30; Stop 08/22/17 at 19:50 SOLEDAD SPRAGUE M.D. Aug 19, 2017 21:17
[2017-08-20 02:00] VITALS: BP 101/66; RESP 20
[2017-08-20 05:37] LABS: BASOPHIL # 0.1 10^3/ul (0.0-0.1); BASOPHILS % 1.1 % (0.0-2.0); EOSINOPHILS # 0.7 10^3/ul (0.0-0.5); EOSINOPHILS % 5.5 % (0.0-7.0); HEMATOCRIT 29.1 % (37.0-47.0); HEMOGLOBIN 9.5 g/dl (12.0-16.0); LYMPHOCYTES # 2.8 10^3/ul (0.8-2.9); LYMPHOCYTES % 20.9 % (15.0-51.0); MEAN CORPUSCULAR HEMOGLOBIN 31.6 pg (29.0-33.0); MEAN CORPUSCULAR HGB CONC 32.6 g/dl (32.0-37.0); MEAN CORPUSCULAR VOLUME 96.7 fl (82.0-101.0); MEAN PLATELET VOLUME 8.5 fl (7.4-10.4); MONOCYTE # 1.1 10^3/ul (0.3-0.9); MONOCYTES % 8.5 % (0.0-11.0); NEUTROPHIL # 8.2 10^3/ul (1.6-7.5); NEUTROPHILS % 62.2 % (39.0-77.0); PLATELET COUNT 403 10^3/UL (140-415); RED BLOOD COUNT 3.01 10^6/ul (4.20-5.40); RED CELL DISTRIBUTION WIDTH 13.3 % (11.5-14.5); WHITE BLOOD COUNT 13.1 10^3/ul (4.8-10.8)
[2017-08-20 06:20] LABS: CALCIUM 9.1 mg/dl (8.4-10.2); CREATININE 7.16 mg/dl (0.44-1.00)
[2017-08-20 08:06] VITALS: BP 103/70; RESP 16
[2017-08-20] MEDS: CARBAMIDE PEROXIDE 6.5% 15ML OTIC BOTH EARS SCH ×2 (08:20→21:21)
[2017-08-20] MEDS: SEVELAMER 800 MG TAB PO SCH ×3 (08:20→17:24)
[2017-08-20] MEDS: LORATADINE 10 MG TAB PO SCH (08:21)
[2017-08-20] MEDS: METOPROLOL 25 MG TAB PO SCH (08:22)
--- NOTE | 2017-08-20 08:56 | PN ---
DATE: 08/19/2017 SUBJECTIVE DATA: No events overnight. Patient is sleeping, looks comfortable. No fevers. No labs this morning. ANTIMICROBIALS: She is on IV Rocephin. INDWELLINGS: Patient has AV fistula. MICROBIOLOGY: Blood culture on admission grew oxacillin sensitive Staph aureus. Repeat blood cultures negative. PHYSICAL EXAMINATION: GENERAL: This is obese, well developed, elderly [place] woman who is sleeping in no distress. HEENT: Head atraumatic, normocephalic. Sclerae anicteric. Buccal mucosa dry. NECK: Supple. CHEST: Rise symmetrical. Breath sounds diminished at bases. HEART: S1, S2. ABDOMEN: Soft. Bowel sounds present. EXTREMITIES: Without cyanosis. ASSESSMENT: 1. Oxacillin-sensitive Staph aureus bacteremia on admission with repeat cultures being negative. 2. Inflammatory findings of left sternoclavicular joint. Per MRI, no evidence of osteomyelitis per Orthopedics. 3. Evidence of anterior thyroid mass and right-sided small tracheal lesion per MRI, patient is being seen by ENT who recommends ultrasound-guided fine needle aspiration of the mass to be performed by Radiology versus laryngoscopy and tracheoscopy with possible biopsy under general anesthesia. 4. End-stage renal disease, hemodialysis dependent. 5. Anemia. 6. Hypertension. PLAN: Patient remains stable on appropriate antimicrobials. Pending WBC labeled nuclear scan. Follow recommendations of consultants. Dictated By: Silverio Cueto NP /shayna/juan j /Document#: [id number]
--- NOTE | 2017-08-20 09:20 | CONS ---
Date/Time of Note Date/Time of Note DATE: 08/20/17 TIME: 09:20 Consult Date/Type/Reason Admit Date/Time Aug 11, 2017 at 01:58 Initial Consult Date 08/16/17 Type of Consultation: nephrology Ordering Provider: MARCELLO ARANDA Subjective post hd yesterday no new events d/w dr. street Objective Vital Signs Date Time Temp Pulse Resp B/P Pulse Ox O2 Delivery O2 Flow Rate FiO2 08/20/17 08:06 97.8 93 16 103/70 97 Intake and Output 08/19/17 08/19/17 08/20/17 15:00 23:00 07:00 Intake Total 950 ml 600 ml Output Total 2500 ml Balance -1550 ml 600 ml Exam HEENT: Head is normocephalic. NECK: Supple. HEART: Regular rate. LUNGS: Diminished breath sounds at the base. ABDOMEN: Soft, nontender to palpation. No rebound or guarding. EXTREMITIES: Negative for clubbing, cyanosis. No edema. DERMATOLOGIC: No rashes. MUSCULOSKELETAL: No joint effusion. NEUROLOGIC: No change in exam. Results/Medications Result Diagram: 08/20/17 0520 08/20/17 0519 Results 24 hrs Laboratory Tests Test 08/19/17 14:25 08/20/17 05:19 08/20/17 05:20 White Blood Count 14.0 H 13.1 H Red Blood Count 2.74 L 3.01 L Hemoglobin 8.5 L 9.5 L Hematocrit 26.2 L 29.1 L Mean Corpuscular Volume 95.6 96.7 Mean Corpuscular Hemoglobin 31.0 31.6 Mean Corpuscular Hemoglobin Concent 32.4 32.6 Red Cell Distribution Width 13.2 13.3 Platelet Count 388 403 Mean Platelet Volume 8.6 8.5 Neutrophils % 59.6 62.2 Lymphocytes % 24.2 20.9 Monocytes % 8.2 8.5 Eosinophils % 5.5 5.5 Basophils % 0.8 1.1 Nucleated Red Blood Cells % 0.0 0.0 Neutrophils # 8.4 H 8.2 H Lymphocytes # 3.4 H 2.8 Monocytes # 1.2 H 1.1 H Eosinophils # 0.8 H 0.7 H Basophils # 0.1 0.1 Nucleated Red Blood Cells # 0.0 0.0 Sodium Level 138 148 H Potassium Level 4.5 4.0 Chloride Level 102 105 Carbon Dioxide Level 23 28 Anion Gap 18 H 19 H Blood Urea Nitrogen 62 H 31 #H Creatinine 11.24 H 7.16 #H Glucose Level 110 85 Calcium Level 8.6 9.1 Medications Current Medications Ondansetron HCl (Zofran Inj) 4 mg Q6H PRN IV NAUSEA AND/OR VOMITING; Start at 02:30 Acetaminophen (Tylenol Tab) 650 mg Q6H PRN PO PAIN LEVEL 1-3 OR FEVER; Start at 02:30 Docusate Sodium (Colace) 100 mg Q12H PRN PO CONSTIPATION Last administered on 21:16; Admin Dose 100 MG; Start 08/11/17 at 02:30 Bisacodyl (Dulcolax) 5 mg DAILY PRN PO CONSTIPATION Last administered on 08:40; Admin Dose 5 MG; Start 08/11/17 at 02:30 Morphine Sulfate (morphine) 2 mg Q4H PRN IV PAIN LEVEL 1-5; Start 08/11/17 at 02:30 Hydromorphone HCl (Dilaudid) 0.5 mg Q4H PRN IV PAIN LEVEL 6-10 Last administered on 08/11/17 22:02; Admin Dose 0.5 MG; Start 08/11/17 at 02:30 Acetaminophen/ Hydrocodone Bitart ([place] (10/325)) 1 tab Q6H PRN PO PAIN Last administered on 08/13/17 08:48; Admin Dose 1 TAB; Start 08/12/17 at 11:00 Loratadine (Claritin) 10 mg DAILY PO Last administered on 08/20/17 08:21; Admin Dose 10 MG; Start 08/12/17 at 11:00 Metoprolol Tartrate 25 mg 25 mg DAILY PO Last administered on 08/16/17 08:41; Admin Dose 25 MG; Start 08/12/17 at 11:00 Ceftriaxone Sodium (Rocephin) 50 ml @ 100 mls/hr Q24H IVPB Last administered on 08/19/17 17:33; Admin Dose 100 MLS/HR; Start 08/15/17 at 16:00 Carbamide Peroxide (Debrox Otic) 3 drop BID BOTH EARS Last administered on 08/20 08:20; Admin Dose 3 DROP; Start 08/19/17 at 14:30; Stop 08/22/17 at 19:50 Assessment/Plan Chief Complaint/Hosp Course 1. Endstage renal disease. Plan for hemodialysis tuesday 2. Hypokalemia. Continue dialysis and low-potassium bath. 3. Anemia. Monitor hemoglobin and hematocrit levels. 4. Mineral bone disorder. Monitor calcium and phosphorus levels. 5. Hypertension. Continue current blood pressure regimen. 6. Sepsis bacteremia. Continue antibiotic therapy. A WBC scan is pending. 7. Left upper extremity pain with history of breast cancer. Continue to monitor. Follow up tumor markers. 8. Tinnitus. Continue to monitor. Medical management. Follow up with ENT. 9. History of thyroid S. Follow up with ENT. Problems: RADHA ESTRADA MD Aug 20, 2017 09:20
[2017-08-20] MEDS ORDERED: HEPARIN 1000 UNITS/ML 10 ML INJ ONE (14:21)
--- NOTE | 2017-08-20 15:28 | CONS ---
Date/Time of Note Date/Time of Note DATE: 08/20/17 TIME: 15:27 Assessment/Plan Assessment/Plan Chief Complaint/Hosp Course ID PROGRESS NOTE TOTAL ABX DAY # CURRENT ABX=> Ceftriaxone 24H INTERVAL SUMMARY * NO fever, WBC down to 13.1, feeling better, prefers to sleep GENERAL: VSS, NAD HEENT: Unremarkable NECK: Trach midline, full ROM CHEST: Rise symmetrical without dyspnea on observation ABDOMEN: Soft, EXTREMITIES: Warm,(+) LUEXT edema SKIN: No diaphoresis, no rash ID ASSESSMENT: 61 yo F admit with: 1. Oxacillin-sensitive Staph aureus bacteremia on admission with repeat cultures being negative. 2. LUEXT => Completely thrombosed dialysis fistula in the left arm. 3. Inflammatory findings of left sternoclavicular joint. Per MRI, no evidence of osteomyelitis per Orthopedics. 3. Evidence of anterior thyroid mass and right-sided small tracheal lesion per MRI * patient is being seen by ENT who recommends ultrasound-guided fine needle aspiration of the mass to be performed by Radiology versus laryngoscopy and tracheoscopy with possible biopsy under general anesthesia. 4. End-stage renal disease, hemodialysis dependent. 5. Anemia. 6. Hypertension. INVASIVES: ABX ALLERGY: None to ABX TOTAL ABX DAY # CURRENT ABX=> Ceftriaxone ID PLAN 1. Continue current ABX 2. Will continue to follow Problems: Consultation Date/Type/Reason Admit Date/Time Aug 11, 2017 at 01:58 Initial Consult Date 08/16/17 Type of Consultation: ID Referring Provider: MARCELLO ARANDA Exam/Review of Systems Vital Signs Vitals Vital Signs Date Time Temp Pulse Resp B/P Pulse Ox O2 Delivery O2 Flow Rate FiO2 08/20/17 08:06 97.8 93 16 103/70 97 Intake and Output 08/19/17 08/19/17 08/20/17 15:00 23:00 07:00 Intake Total 950 ml 600 ml Output Total 2500 ml Balance -1550 ml 600 ml Results Result Diagram: 08/20/17 0520 08/20/17 0519 Results 24 hrs Laboratory Tests Test 08/20/17 05:19 08/20/17 05:20 Sodium Level 148 H Potassium Level 4.0 Chloride Level 105 Carbon Dioxide Level 28 Anion Gap 19 H Blood Urea Nitrogen 31 #H Creatinine 7.16 #H Glucose Level 85 Calcium Level 9.1 White Blood Count 13.1 H Red Blood Count 3.01 L Hemoglobin 9.5 L Hematocrit 29.1 L Mean Corpuscular Volume 96.7 Mean Corpuscular Hemoglobin 31.6 Mean Corpuscular Hemoglobin Concent 32.6 Red Cell Distribution Width 13.3 Platelet Count 403 Mean Platelet Volume 8.5 Neutrophils % 62.2 Lymphocytes % 20.9 Monocytes % 8.5 Eosinophils % 5.5 Basophils % 1.1 Nucleated Red Blood Cells % 0.0 Neutrophils # 8.2 H Lymphocytes # 2.8 Monocytes # 1.1 H Eosinophils # 0.7 H Basophils # 0.1 Nucleated Red Blood Cells # 0.0 Medications Medications Current Medications Ondansetron HCl (Zofran Inj) 4 mg Q6H PRN IV NAUSEA AND/OR VOMITING; Start at 02:30 Acetaminophen (Tylenol Tab) 650 mg Q6H PRN PO PAIN LEVEL 1-3 OR FEVER; Start at 02:30 Docusate Sodium (Colace) 100 mg Q12H PRN PO CONSTIPATION Last administered on 21:16; Admin Dose 100 MG; Start 08/11/17 at 02:30 Bisacodyl (Dulcolax) 5 mg DAILY PRN PO CONSTIPATION Last administered on 08:40; Admin Dose 5 MG; Start 08/11/17 at 02:30 Morphine Sulfate (morphine) 2 mg Q4H PRN IV PAIN LEVEL 1-5; Start 08/11/17 at 02:30 Hydromorphone HCl (Dilaudid) 0.5 mg Q4H PRN IV PAIN LEVEL 6-10 Last administered on 08/11/17 22:02; Admin Dose 0.5 MG; Start 08/11/17 at 02:30 Acetaminophen/ Hydrocodone Bitart ([place] (10/325)) 1 tab Q6H PRN PO PAIN Last administered on 08/13/17 08:48; Admin Dose 1 TAB; Start 08/12/17 at 11:00 Loratadine (Claritin) 10 mg DAILY PO Last administered on 08/20/17 08:21; Admin Dose 10 MG; Start 08/12/17 at 11:00 Metoprolol Tartrate 25 mg 25 mg DAILY PO Last administered on 08/16/17 08:41; Admin Dose 25 MG; Start 08/12/17 at 11:00 Ceftriaxone Sodium (Rocephin) 50 ml @ 100 mls/hr Q24H IVPB Last administered on 08/19/17 17:33; Admin Dose 100 MLS/HR; Start 08/15/17 at 16:00 Carbamide Peroxide (Debrox Otic) 3 drop BID BOTH EARS Last administered on 08/20 08:20; Admin Dose 3 DROP; Start 08/19/17 at 14:30; Stop 08/22/17 at 19:50 VALERIE AVILES [employer]STRUCTION[employer] SUPPORT SPECIALIST Aug 20, 2017 15:27
--- NOTE | 2017-08-20 15:58 | PN ---
Date/Time of Note Date/Time of Note DATE: 08/20/17 TIME: 15:53 Assessment/Plan VTE Prophylaxis VTE Prophylaxis Intervention: SCD's Lines/Catheters [facility] Saline Lock Urinary Cath still in place: No Assessment/Plan Chief Complaint/Hosp Course Assessment/Plan: 61 yo F with h/o ESRD on HD, DM2 presents with several days of painful swelling of proximal L clavicle and chills with HD. Pt found to have S. Aureus bacteremia, MRI imaging of chest non specific but not consistent with OM. PLAN - Appreciate hematology oncology consult, after speaking with interventional radiology team as well, no need for left clavicle biopsy at this time. Follow- up tumor markers ordered by hematology oncology team given patient's prior history of breast cancer. Recommendation is to repeat the scans in a few months to assess for growth of these masses mentioned above. Also, recommendation to follow-up with Dr. Galeano and to have an out patient PET CT. - Have stopped empiric vanc for now giving possible tinnitus symptoms, Now on Rocephin for continued treatment of staph aureus bacteremia. Also on Debrox for ear discomfort - ID on consult, follow-up their recommendations particularly regarding length of treatment given staph bacteremia - Given CTA of the chest findings regarding thyroid and tracheal masses, per ENT consult recommendations, they ordered ultrasound guided needle biopsy of tracheal mass to further evaluate, however as stated before patient has refused this. Monitor for now. - tagged WBC scan performed today, images to be done tomorrow, in the meantime monitor for now, continue antibiotics - renal on cs for HD - SSI for DM2 - BP control Of note, incidental findings: Subpleural lung nodules measuring up to 7 mm. Consider f/u: CT at 3-[address] at 18-24 mos. Problems: Subjective 24 Hr Interval Summary Free Text/Dictation Pt had HD yesterday. Still having some ear ringing symptoms. Had blood drawn for tagged WBC scan today. Exam/Review of Systems Vital Signs Vitals Vital Signs Date Time Temp Pulse Resp B/P Pulse Ox O2 Delivery O2 Flow Rate FiO2 08/20/17 08:06 97.8 93 16 103/70 97 Intake and Output 08/19/17 08/19/17 08/20/17 15:00 23:00 07:00 Intake Total 950 ml 600 ml Output Total 2500 ml Balance -1550 ml 600 ml Exam Lying in bed, answering questions verbally, no acute distress resp nonlabored S1, S2 heard abd nondistended no focal deficits no edema Results Result Diagram: 08/20/17 0508/20/17 05 Results 24 hrs Laboratory Tests Test 08/20/17 05:19 08/20/17 05:20 Sodium Level 148 H Potassium Level 4.0 Chloride Level 105 Carbon Dioxide Level 28 Anion Gap 19 H Blood Urea Nitrogen 31 #H Creatinine 7.16 #H Glucose Level 85 Calcium Level 9.1 White Blood Count 13.1 H Red Blood Count 3.01 L Hemoglobin 9.5 L Hematocrit 29.1 L Mean Corpuscular Volume 96.7 Mean Corpuscular Hemoglobin 31.6 Mean Corpuscular Hemoglobin Concent 32.6 Red Cell Distribution Width 13.3 Platelet Count 403 Mean Platelet Volume 8.5 Neutrophils % 62.2 Lymphocytes % 20.9 Monocytes % 8.5 Eosinophils % 5.5 Basophils % 1.1 Nucleated Red Blood Cells % 0.0 Neutrophils # 8.2 H Lymphocytes # 2.8 Monocytes # 1.1 H Eosinophils # 0.7 H Basophils # 0.1 Nucleated Red Blood Cells # 0.0 Medications Medications Current Medications Ondansetron HCl (Zofran Inj) 4 mg Q6H PRN IV NAUSEA AND/OR VOMITING; Start at 02:30 Acetaminophen (Tylenol Tab) 650 mg Q6H PRN PO PAIN LEVEL 1-3 OR FEVER; Start at 02:30 Docusate Sodium (Colace) 100 mg Q12H PRN PO CONSTIPATION Last administered on 21:16; Admin Dose 100 MG; Start 08/11/17 at 02:30 Bisacodyl (Dulcolax) 5 mg DAILY PRN PO CONSTIPATION Last administered on 08:40; Admin Dose 5 MG; Start 08/11/17 at 02:30 Morphine Sulfate (morphine) 2 mg Q4H PRN IV PAIN LEVEL 1-5; Start 08/11/17 at 02:30 Hydromorphone HCl (Dilaudid) 0.5 mg Q4H PRN IV PAIN LEVEL 6-10 Last administered on 08/11/17 22:02; Admin Dose 0.5 MG; Start 08/11/17 at 02:30 Acetaminophen/ Hydrocodone Bitart ([place] ()) 1 tab Q6H PRN PO PAIN Last administered on 08/13/17 08:48; Admin Dose 1 TAB; Start 08/12/17 at 11:00 Loratadine (Claritin) 10 mg DAILY PO Last administered on 08/20/17 08:21; Admin Dose 10 MG; Start 08/12/17 at 11:00 Metoprolol Tartrate 25 mg 25 mg DAILY PO Last administered on 08/16/17 08:41; Admin Dose 25 MG; Start 08/12/17 at 11:00 Ceftriaxone Sodium (Rocephin) 50 ml @ 100 mls/hr Q24H IVPB Last administered on 08/19/17 17:33; Admin Dose 100 MLS/HR; Start 08/15/17 at 16:00 Carbamide Peroxide (Debrox Otic) 3 drop BID BOTH EARS Last administered on 08/20 08:20; Admin Dose 3 DROP; Start 08/19/17 at 14:30; Stop 08/22/17 at 19:50 MARCELLO ARANDA Aug 20, 2017 15:58
[2017-08-20] MEDS: CEFTRIAXONE 1 GM/50 ML (PMX) 50 ML IVPB SCH (17:24)
[2017-08-20 20:51] VITALS: BP 119/75; RESP 18
[2017-08-21 02:49] VITALS: BP 127/75; RESP 18
[2017-08-21] MEDS: SEVELAMER 800 MG TAB PO SCH ×3 (07:53→17:02)
[2017-08-21 08:28] VITALS: BP 103/63; RESP 18
[2017-08-21] MEDS: LORATADINE 10 MG TAB PO SCH (08:43)
[2017-08-21] MEDS: CARBAMIDE PEROXIDE 6.5% 15ML OTIC BOTH EARS SCH ×2 (08:43→20:57)
[2017-08-21] MEDS: METOPROLOL 25 MG TAB PO SCH (08:46)
--- NOTE | 2017-08-21 09:37 | CONS ---
Date/Time of Note Date/Time of Note DATE: 08/21/17 TIME: 09:35 Consult Date/Type/Reason Admit Date/Time Aug 11, 2017 at 01:58 Initial Consult Date 08/16/17 Type of Consultation: nephrology Ordering Provider: MARCELLO ARANDA Subjective pt. seen and examined no new c/o. Objective Vital Signs Date Time Temp Pulse Resp B/P Pulse Ox O2 Delivery O2 Flow Rate FiO2 08/21/17 08:28 97.8 94 18 103/63 99 Intake and Output 08/20/17 08/20/17 08/21/17 15:00 23:00 07:00 Intake Total 1240 ml 760 ml Balance 1240 ml 760 ml Results/Medications Result Diagram: 08/20/1751908/20/17518 Medications Current Medications Ondansetron HCl (Zofran Inj) 4 mg Q6H PRN IV NAUSEA AND/OR VOMITING; Start at 02:30 Acetaminophen (Tylenol Tab) 650 mg Q6H PRN PO PAIN LEVEL 1-3 OR FEVER; Start at 02:30 Docusate Sodium (Colace) 100 mg Q12H PRN PO CONSTIPATION Last administered on 21:16; Admin Dose 100 MG; Start 08/11/17 at 02:30 Bisacodyl (Dulcolax) 5 mg DAILY PRN PO CONSTIPATION Last administered on 08:40; Admin Dose 5 MG; Start 08/11/17 at 02:30 Morphine Sulfate (morphine) 2 mg Q4H PRN IV PAIN LEVEL 1-5; Start 08/11/17 at 02:30 Hydromorphone HCl (Dilaudid) 0.5 mg Q4H PRN IV PAIN LEVEL 6-10 Last administered on 08/11/17 22:02; Admin Dose 0.5 MG; Start 08/11/17 at 02:30 Acetaminophen/ Hydrocodone Bitart ([place] (10/325)) 1 tab Q6H PRN PO PAIN Last administered on 08/13/17 08:48; Admin Dose 1 TAB; Start 08/12/17 at 11:00 Loratadine (Claritin) 10 mg DAILY PO Last administered on 08/21/17 08:43; Admin Dose 10 MG; Start 08/12/17 at 11:00 Metoprolol Tartrate 25 mg 25 mg DAILY PO Last administered on 08/16/17 08:41; Admin Dose 25 MG; Start 08/12/17 at 11:00 Ceftriaxone Sodium (Rocephin) 50 ml @ 100 mls/hr Q24H IVPB Last administered on 08/20/17 17:24; Admin Dose 100 MLS/HR; Start 08/15/17 at 16:00 Carbamide Peroxide (Debrox Otic) 3 drop BID BOTH EARS Last administered on 08/21 08:43; Admin Dose 3 DROP; Start 08/19/17 at 14:30; Stop 08/22/17 at 19:50 Assessment/Plan Chief Complaint/Hosp Course 1. Endstage renal disease. Plan for hemodialysis tuesday 2. Hypokalemia. Continue dialysis and low-potassium bath. 3. Anemia. Monitor hemoglobin and hematocrit levels. 4. Mineral bone disorder. Monitor calcium and phosphorus levels. 5. Hypertension. Continue current blood pressure regimen. 6. Sepsis bacteremia. Continue antibiotic therapy. A WBC scan is pending. 7. Left upper extremity pain with history of breast cancer. Continue to monitor. Follow up tumor markers. 8. Tinnitus. Continue to monitor. Medical management. Follow up with ENT. 9. History of thyroid S. Follow up with ENT. Problems: RADHA ESTRADA MD Aug 21, 2017 09:37
--- NOTE | 2017-08-21 12:13 | PN ---
Date/Time of Note Date/Time of Note DATE: 08/21/17 TIME: 12:09 Assessment/Plan VTE Prophylaxis VTE Prophylaxis Intervention: SCD's Lines/Catheters [facility] Saline Lock Urinary Cath still in place: No Assessment/Plan Chief Complaint/Hosp Course Assessment/Plan: 61 yo F with h/o ESRD on HD, DM2 presents with several days of painful swelling of proximal L clavicle and chills with HD. Pt found to have S. Aureus bacteremia, MRI imaging of chest non specific but not consistent with OM. PLAN - Appreciate hematology oncology consult, after speaking with interventional radiology team as well, no need for left clavicle biopsy at this time. Follow- up tumor markers ordered by hematology oncology team given patient's prior history of breast cancer. Recommendation is to repeat the scans in a few months to assess for growth of these masses mentioned above. Also, recommendation to follow-up with Dr. Galeano and to have an out patient PET CT. - Have stopped empiric vanc for now giving possible tinnitus symptoms, Now on Rocephin for continued treatment of staph aureus bacteremia. Also on Debrox for ear discomfort. We will also check MRI of the brain continued dizziness and ringing ear symptoms - ID on consult, follow-up their recommendations particularly regarding length of treatment given staph bacteremia - Given CTA of the chest findings regarding thyroid and tracheal masses, per ENT consult recommendations, they ordered ultrasound guided needle biopsy of tracheal mass to further evaluate, however as stated before patient has refused this. Monitor for now. - tagged WBC scan performed yesterday (blood taken), images to be done today, in the meantime monitor for now, continue antibiotics - renal on cs for HD - SSI for DM2 - BP control Of note, incidental findings: Subpleural lung nodules measuring up to 7 mm. Consider f/u: CT at 3-[address] at 18-24 mos. Problems: Subjective 24 Hr Interval Summary Free Text/Dictation Patient still complaining of some dizziness symptoms and right ear ringing. Exam/Review of Systems Vital Signs Vitals Vital Signs Date Time Temp Pulse Resp B/P Pulse Ox O2 Delivery O2 Flow Rate FiO2 08/21/17 08:28 97.8 94 18 103/63 99 Intake and Output 08/20/17 08/20/17 08/21/17 15:00 23:00 07:00 Intake Total 1240 ml 760 ml Balance 1240 ml 760 ml Exam Lying in bed, answering questions verbally, no acute distress resp nonlabored S1, S2 heard abd nondistended no focal deficits no edema Results Result Diagram: 08/20/1751908/20/17518 Medications Medications Current Medications Ondansetron HCl (Zofran Inj) 4 mg Q6H PRN IV NAUSEA AND/OR VOMITING; Start at 02:30 Acetaminophen (Tylenol Tab) 650 mg Q6H PRN PO PAIN LEVEL 1-3 OR FEVER; Start at 02:30 Docusate Sodium (Colace) 100 mg Q12H PRN PO CONSTIPATION Last administered on 21:16; Admin Dose 100 MG; Start 08/11/17 at 02:30 Bisacodyl (Dulcolax) 5 mg DAILY PRN PO CONSTIPATION Last administered on 08:40; Admin Dose 5 MG; Start 08/11/17 at 02:30 Morphine Sulfate (morphine) 2 mg Q4H PRN IV PAIN LEVEL 1-5; Start 08/11/17 at 02:30 Hydromorphone HCl (Dilaudid) 0.5 mg Q4H PRN IV PAIN LEVEL 6-10 Last administered on 08/11/17 22:02; Admin Dose 0.5 MG; Start 08/11/17 at 02:30 Acetaminophen/ Hydrocodone Bitart ([place] (10/325)) 1 tab Q6H PRN PO PAIN Last administered on 08/13/17 08:48; Admin Dose 1 TAB; Start 08/12/17 at 11:00 Loratadine (Claritin) 10 mg DAILY PO Last administered on 08/21/17 08:43; Admin Dose 10 MG; Start 08/12/17 at 11:00 Metoprolol Tartrate 25 mg 25 mg DAILY PO Last administered on 08/16/17 08:41; Admin Dose 25 MG; Start 08/12/17 at 11:00 Ceftriaxone Sodium (Rocephin) 50 ml @ 100 mls/hr Q24H IVPB Last administered on 08/20/17 17:24; Admin Dose 100 MLS/HR; Start 08/15/17 at 16:00 Carbamide Peroxide (Debrox Otic) 3 drop BID BOTH EARS Last administered on 08/21t 08:43; Admin Dose 3 DROP; Start 08/19/17 at 14:30; Stop 08/22/17 at 19:50 MARCELLO ARANDA Aug 21, 2017 12:13
--- NOTE | 2017-08-21 13:49 | RADRPT ---
PROCEDURE: MR Brain without contrast. CLINICAL INDICATION: Dizziness. TECHNIQUE: An MRI of the brain was performed on a GE short bore 3.0 alexandrea scanner utilizing the fo llowing sequences: Sagittal T1 and axial weighted, axial T2 weighted, coronal GRE, axial diffusion weighted (EPI technique [id number]) with axial ADC mapping, and axial FLAIR. Additionally, a high-resol ution axial T2-weighted fiesta sequence through the internal auditory canals was performed. COMPARISON: None FINDINGS: No diffusion weighted abnormalities are seen to suggest the presence of acute ischemia or recent inf arct. No GRE susceptibility artifact is evident to suggest the presence of blood degradation produc ts. There is no intracranial hemorrhage, mass effect, or midline shift. No extra-axial fluid colle ction is seen. The ventricles and sulci are normal in size and configuration. Several small foci o f increased T2 weighted/FLAIR signal intensity are seen in the primarily in the deep white matter, n onspecific in appearance. The signal intensity is normal throughout the brainstem and cerebellum. Normal flow voids are visible in the proximal intracranial arteries and dural sinuses, indicating pa tency. There is mild mucosal thickening in the right maxillary sinus. High-resolution imaging through the internal auditory canals shows no abnormality of the seventh and eighth cranial nerve complex. No cerebellopontine angle mass lesion or intracanalicular mass lesion is seen on this noncontrast study. The membranous portions of the inner ear structures are normal i n appearance bilaterally. IMPRESSION: 1. No evidence of acute intracranial pathology. 2. Several small foci of increased T2 weighted/FLAIR signal intensity are seen primarily in the venu p white matter, nonspecific in appearance though perhaps reflective of complicated migraines, hypert ensive microvascular ischemic disease, or sequela from prior traumatic or inflammatory insults. 3. The brain is otherwise normal in appearance. RPTAT: HJAH .Nancy Hastings MD, MD Date Time Electronically viewed and signed by .Nancy Hastings MD, on 08/21/2017 13:28 .H/
[2017-08-21 14:00] VITALS: BP 123/85; RESP 18
[2017-08-21] MEDS: CEFTRIAXONE 1 GM/50 ML (PMX) 50 ML IVPB SCH (17:01)
--- NOTE | 2017-08-21 17:02 | CONS ---
Date/Time of Note Date/Time of Note DATE: 08/21/17 TIME: 17:01 Assessment/Plan Assessment/Plan Chief Complaint/Hosp Course ID PROGRESS NOTE TOTAL ABX DAY # CURRENT ABX=> Ceftriaxone 24H INTERVAL SUMMARY * Clinically stable, NO fever, WBC down to 13.1, lethargic * Per HemeOnc -> No indication for clavicle BM Bx GENERAL: VSS, NAD HEENT: Unremarkable NECK: Trach midline, full ROM CHEST: Rise symmetrical without dyspnea on observation ABDOMEN: Soft, EXTREMITIES: Warm,(+) LUEXT edema SKIN: No diaphoresis, no rash ID ASSESSMENT: 61 yo F admit with: 1. Oxacillin-sensitive Staph aureus bacteremia on admission with repeat cultures being negative. 2. LUEXT => Completely thrombosed dialysis fistula in the left arm. 3. Inflammatory findings of left sternoclavicular joint. Per MRI, no evidence of osteomyelitis per Orthopedics. 3. Evidence of anterior thyroid mass and right-sided small tracheal lesion per MRI * patient is being seen by ENT who recommends ultrasound-guided fine needle aspiration of the mass to be performed by Radiology versus laryngoscopy and tracheoscopy with possible biopsy under general anesthesia. 4. End-stage renal disease, hemodialysis dependent. 5. Anemia. 6. Hypertension. INVASIVES: ABX ALLERGY: None to ABX TOTAL ABX DAY # CURRENT ABX=> Ceftriaxone ID PLAN 1. Continue current ABX 2. Will continue to follow Problems: Consultation Date/Type/Reason Admit Date/Time Aug 11, 2017 at 01:58 Initial Consult Date 08/16/17 Type of Consultation: ID Referring Provider: MARCELLO ARANDA Exam/Review of Systems Vital Signs Vitals Vital Signs Date Time Temp Pulse Resp B/P Pulse Ox O2 Delivery O2 Flow Rate FiO2 08/21/17 14:00 97.8 85 18 123/85 99 Intake and Output 08/20/17 08/20/17 08/21/17 15:00 23:00 07:00 Intake Total 1240 ml 760 ml Balance 1240 ml 760 ml Results Result Diagram: 08/20/17 0508/20/17 05 Medications Medications Current Medications Ondansetron HCl (Zofran Inj) 4 mg Q6H PRN IV NAUSEA AND/OR VOMITING; Start at 02:30 Acetaminophen (Tylenol Tab) 650 mg Q6H PRN PO PAIN LEVEL 1-3 OR FEVER; Start at 02:30 Docusate Sodium (Colace) 100 mg Q12H PRN PO CONSTIPATION Last administered on 21:16; Admin Dose 100 MG; Start 08/11/17 at 02:30 Bisacodyl (Dulcolax) 5 mg DAILY PRN PO CONSTIPATION Last administered on 08:40; Admin Dose 5 MG; Start 08/11/17 at 02:30 Morphine Sulfate (morphine) 2 mg Q4H PRN IV PAIN LEVEL 1-5; Start 08/11/17 at 02:30 Hydromorphone HCl (Dilaudid) 0.5 mg Q4H PRN IV PAIN LEVEL 6-10 Last administered on 08/11/17 22:02; Admin Dose 0.5 MG; Start 08/11/17 at 02:30 Acetaminophen/ Hydrocodone Bitart ([place] (10/325)) 1 tab Q6H PRN PO PAIN Last administered on 08/13/17 08:48; Admin Dose 1 TAB; Start 08/12/17 at 11:00 Loratadine (Claritin) 10 mg DAILY PO Last administered on 08/21/17 08:43; Admin Dose 10 MG; Start 08/12/17 at 11:00 Metoprolol Tartrate 25 mg 25 mg DAILY PO Last administered on 08/16/17 08:41; Admin Dose 25 MG; Start 08/12/17 at 11:00 Ceftriaxone Sodium (Rocephin) 50 ml @ 100 mls/hr Q24H IVPB Last administered on 08/20/17 17:24; Admin Dose 100 MLS/HR; Start 08/15/17 at 16:00 Carbamide Peroxide (Debrox Otic) 3 drop BID BOTH EARS Last administered on 08/21 08:43; Admin Dose 3 DROP; Start 08/19/17 at 14:30; Stop 08/22/17 at 19:50 VALERIE AVILES NP Aug 21, 2017 17:02
[2017-08-21 21:00] VITALS: BP 120/66; RESP 18
[2017-08-22] VITALS (11 sets, daily range): BP systolic 111–136; BP diastolic 57–75; PULSE 74–78; RESP 18–20
[2017-08-22] MEDS: LORATADINE 10 MG TAB PO SCH (08:31)
[2017-08-22] MEDS: SEVELAMER 800 MG TAB PO SCH ×3 (08:31→17:19)
[2017-08-22] MEDS: CARBAMIDE PEROXIDE 6.5% 15ML OTIC BOTH EARS SCH (08:32)
[2017-08-22] MEDS: METOPROLOL 25 MG TAB PO SCH (09:00)
--- NOTE | 2017-08-22 09:28 | RADRPT ---
PROCEDURE: Indium-111 labeled white blood cell scan CLINICAL INDICATION: 61 -year-old patient with fever and leukocytosis. TECHNIQUE: Following the intravenous injection of 0.5 mCi of Indium-111 labeled white blood cells, whole body anterior and posterior planar images were obtained along with spot views of the chest an d abdomen 24 hours post injection. COMPARISON: No prior indium scans. FINDINGS: No definite abnormal areas of increased activity are seen in the study, including visualized portion s of the head and neck, chest, abdomen, pelvis and visualized portions of the upper and lower extrem ities bilaterally. Physiologic uptake is noted in the liver and spleen. IMPRESSION: No definite abnormal focal areas of increased activity. RPTAT: HH .Sanjuana Araujo MD, MD Date Time Electronically viewed and signed by .Sanjuana Araujo MD, on 08/22/2017 09:27 .L/
--- NOTE | 2017-08-22 10:12 | PN ---
DATE: 08/22/2017 SUBJECTIVE DATA: Patient is stable. No events overnight. No fevers, chills, nausea, vomiting. OBJECTIVE DATA: VITAL SIGNS: Blood pressure 116/75, temperature 97.6, pulse 82, respirations 18. HEENT: Head is normocephalic. NECK: Supple. HEART: Regular rate. LUNGS: Diminished breath sounds at the base. ABDOMEN: Soft, nontender to palpation. No rebound or guarding. EXTREMITIES: Negative for clubbing, cyanosis. No edema. DERMATOLOGIC: No rashes. MUSCULOSKELETAL: No joint effusion. NEUROLOGIC: No change in exam. MEDICATIONS: The patient's medications have been reviewed. LABORATORY AND DIAGNOSTIC DATA: Laboratory data has been reviewed. No new labs. ASSESSMENT AND PLAN: 1. Endstage renal disease. Plan for hemodialysis today. 2. Hypokalemia, resolved. Continue dialysis on a low potassium bath. 3. Anemia. Monitor hemoglobin and hematocrit levels. 4. Hypernatremia. Continue current free water intake. 5. Hypertension. Continue current blood pressure regimen. 6. Sepsis bacteremia. Continue current antibiotic regimen. 7. Clavicular pain. Etiology is unclear. The patient is pending an outpatient PET scan. Continue to monitor. Follow up tumor markers. 8. Tinnitus. Continue current treatment plan. Follow up with ENT. 9. Thyroid nodule. Follow up with ENT. Dictated By: Stanley Tariq DO /shayna/shlomo /Document#: [id number]
[2017-08-22 12:26] LABS: BASOPHIL # 0.2 10^3/ul (0.0-0.1); BASOPHILS % 1.1 % (0.0-2.0); EOSINOPHILS # 0.9 10^3/ul (0.0-0.5); EOSINOPHILS % 6.5 % (0.0-7.0); HEMATOCRIT 24.3 % (37.0-47.0); LYMPHOCYTES # 2.9 10^3/ul (0.8-2.9); LYMPHOCYTES % 21.2 % (15.0-51.0); MEAN CORPUSCULAR HEMOGLOBIN 31.4 pg (29.0-33.0); MEAN CORPUSCULAR HGB CONC 32.9 g/dl (32.0-37.0); MEAN CORPUSCULAR VOLUME 95.3 fl (82.0-101.0); MEAN PLATELET VOLUME 8.9 fl (7.4-10.4); MONOCYTES % 7.3 % (0.0-11.0); NEUTROPHIL # 8.7 10^3/ul (1.6-7.5); NEUTROPHILS % 62.7 % (39.0-77.0); PLATELET COUNT 334 10^3/UL (140-415); RED BLOOD COUNT 2.55 10^6/ul (4.20-5.40); RED CELL DISTRIBUTION WIDTH 13.4 % (11.5-14.5); WHITE BLOOD COUNT 13.9 10^3/ul (4.8-10.8)
--- NOTE | 2017-08-22 16:49 | PN ---
Date/Time of Note Date/Time of Note DATE: 08/22/17 TIME: 16:42 Assessment/Plan VTE Prophylaxis VTE Prophylaxis Intervention: SCD's Lines/Catheters IV Catheter Type (from Nrsg): Saline Lock Urinary Cath still in place: No Assessment/Plan Assessment/Plan 61 yo F with h/o ESRD on HD, DM2 presents with several days of painful swelling of proximal L clavicle and chills with HD. Pt found to have S. Aureus bacteremia , MRI imaging of chest non specific but not consistent with OM. #L clavicular prominence: sp onc eval. no indication for biopsy at this time, f/u tumor markers -repeat scan in several mos and f/u with Dr Galeano for outpatient PET #MSSA bacteremia: changed from vanc to rocephin for ?tinitus. MRI brain without abn will narrow vanc to ancef tagged WBC scan unremarkable length of therapy 9.22-->present. If ID advising 2 week course, this would end 10.5 #thyroid lesion and tracheal mass: ENT advising biopsy of tracheal mass, pt refusing. outpatient follow up Of note, incidental findings: Subjective 24 Hr Interval Summary Free Text/Dictation pt sleeping while getting HD this AM Exam/Review of Systems Vital Signs Vitals Vital Signs Date Time Temp Pulse Resp B/P Pulse Ox O2 Delivery O2 Flow Rate FiO2 08/22/17 15:03 97.9 82 20 111/65 98 Intake and Output 08/21/17 08/21/17 08/22/17 15:00 23:00 07:00 Intake Total 750 ml 760 ml Balance 750 ml 760 ml Exam nad laying in bed resp nonlabored abd soft no edema no rashes Results Result Diagram: 08/22/17 1140 08/20/17 0519 Results 24 hrs Laboratory Tests Test 08/22/17 11:40 White Blood Count 13.9 H Red Blood Count 2.55 L Hemoglobin 8.0 L Hematocrit 24.3 L Mean Corpuscular Volume 95.3 Mean Corpuscular Hemoglobin 31.4 Mean Corpuscular Hemoglobin Concent 32.9 Red Cell Distribution Width 13.4 Platelet Count 334 Mean Platelet Volume 8.9 Neutrophils % 62.7 Lymphocytes % 21.2 Monocytes % 7.3 Eosinophils % 6.5 Basophils % 1.1 Nucleated Red Blood Cells % 0.0 Neutrophils # 8.7 H Lymphocytes # 2.9 Monocytes # 1.0 H Eosinophils # 0.9 H Basophils # 0.2 H Nucleated Red Blood Cells # 0.0 Medications Medications Current Medications Ondansetron HCl (Zofran Inj) 4 mg Q6H PRN IV NAUSEA AND/OR VOMITING; Start at 02:30 Acetaminophen (Tylenol Tab) 650 mg Q6H PRN PO PAIN LEVEL 1-3 OR FEVER; Start at 02:30 Docusate Sodium (Colace) 100 mg Q12H PRN PO CONSTIPATION Last administered on 21:16; Admin Dose 100 MG; Start 08/11/17 at 02:30 Bisacodyl (Dulcolax) 5 mg DAILY PRN PO CONSTIPATION Last administered on 08:40; Admin Dose 5 MG; Start 08/11/17 at 02:30 Morphine Sulfate (morphine) 2 mg Q4H PRN IV PAIN LEVEL 1-5; Start 08/11/17 at 02:30 Hydromorphone HCl (Dilaudid) 0.5 mg Q4H PRN IV PAIN LEVEL 6-10 Last administered on 08/11/17 22:02; Admin Dose 0.5 MG; Start 08/11/17 at 02:30 Acetaminophen/ Hydrocodone Bitart ([place]ink (10/325)) 1 tab Q6H PRN PO PAIN Last administered on 08/13/17 08:48; Admin Dose 1 TAB; Start 08/12/17 at 11:00 Loratadine (Claritin) 10 mg DAILY PO Last administered on 08/22/17 08:31; Admin Dose 10 MG; Start 08/12/17 at 11:00 Metoprolol Tartrate 25 mg 25 mg DAILY PO Last administered on 08/16/17 08:41; Admin Dose 25 MG; Start 08/12/17 at 11:00 Ceftriaxone Sodium (Rocephin) 50 ml @ 100 mls/hr Q24H IVPB Last administered on 08/21/17 17:01; Admin Dose 100 MLS/HR; Start 08/15/17 at 16:00 Carbamide Peroxide (Debrox Otic) 3 drop BID BOTH EARS Last administered on 08/22 08:32; Admin Dose 3 DROP; Start 08/19/17 at 14:30; Stop 08/22/17 at 19:50 SUPRIYA BROWN MD Aug 22, 2017 16:49
[2017-08-22] MEDS: CEFAZOLIN 2 GM/50 ML (PMX) 50 ML IVPB SCH (17:43)
[2017-08-23 02:00] VITALS: BP 125/72; RESP 20
--- NOTE | 2017-08-23 06:47 | PN ---
DATE: 08/22/2017 SUBJECTIVE DATA: No acute events overnight. Patient is alert, in hemodialysis complaining of blurry vision. No fevers. No acute distress. LABORATORY AND DIAGNOSTIC DATA: WBC 13.9, no shift, no bands. INDWELLINGS: Patient has left upper extremity AV fistula. ANTIMICROBIALS: Rocephin status post vancomycin, total antibiotics day number 11. DIAGNOSTICS: WBC labeled nuclear scan revealed no definite abnormal focal areas of increased activity. Brain MRI revealed no acute intracranial pathology. OBJECTIVE DATA: GENERAL: This is a well-nourished, well-developed, elderly [place] woman, who is alert, in no distress. HEENT: Head atraumatic, normocephalic. Sclerae anicteric. Buccal mucosa pink. NECK: Supple. CHEST: Rise symmetrical. Breath sounds diminished at the bases. HEART: S1, S2. ABDOMEN: Soft, bowel sounds present. EXTREMITIES: Without cyanosis. ASSESSMENT: 1. Oxacillin-sensitive Staph aureus bacteremia on admission with repeat blood cultures being negative, WBC labeled nuclear scan negative. 2D echo revealed no vegetations. 2. End-stage renal disease, hemodialysis dependent. 3. Inflammatory findings of left sternoclavicular joint per MRI, no evidence of osteomyelitis per orthopedic consultation, again WBC labeled nuclear scan negative. 4. Anemia. 5. Hypertension. 6. Questionable thyroid mass and right-sided small tracheal lesion per MRI, with recommendations of ultrasound fine-needle aspiration per ENT. PLAN: Patient remains stable. Again, there is no evidence of acute infectious process as per WBC labeled nuclear scan. We will continue her on current antibiotics for 4 more days to complete treatment for bacteremia. Dictated By: Silverio Cueto NP /shayna/renan /Document#: [id number]
[2017-08-23 07:35] VITALS: BP 138/86; RESP 18
[2017-08-23] MEDS: SEVELAMER 800 MG TAB PO SCH ×3 (09:06→17:00)
[2017-08-23] MEDS: LORATADINE 10 MG TAB PO SCH (09:06)
[2017-08-23] MEDS: METOPROLOL 25 MG TAB PO SCH (09:07)
--- NOTE | 2017-08-23 09:34 | PN ---
DATE: 08/23/2017 SUBJECTIVE DATA: The patient had hemodialysis yesterday, tolerated well. OBJECTIVE DATA: VITAL SIGNS: Blood pressure is 138/86, temperature 98.3, pulse 73, respirations 18. HEENT: Head is normocephalic. NECK: Supple. HEART: Regular rate. LUNGS: Diminished breath sounds at the base. ABDOMEN: Soft, nontender to palpation. No rebound or guarding. EXTREMITIES: Negative for clubbing, cyanosis. No edema. DERMATOLOGIC: Clean. No rashes. MUSCULOSKELETAL: No joint effusion. NEUROLOGIC: Unchanged exam. MEDICATIONS: Reviewed. LABORATORY AND DIAGNOSTIC DATA: Reviewed. No new labs. ASSESSMENT AND PLAN: 1. End-stage renal disease. Plan for hemodialysis tomorrow. 2. Anemia. Monitor hemoglobin and hematocrit levels. Will give Epogen as needed. 3. Hyponatremia, improved. 4. Hypertension. Continue current blood pressure regimen. 5. Sepsis bacteremia. The patient is completing antibiotic course. 6. Clavicular pain, etiology is unclear. Continue to monitor. Continue pain control. 7. Tracheal mass, followed by ENT. Dictated By: Stanley Tariq DO /shayna/esther /Document#: [id number]
[2017-08-23] MEDS ORDERED: LINE600T PO (12:30)
--- NOTE | 2017-08-23 12:46 | DS ---
Date/Time of Note Date/Time of Note DATE: 08/23/17 TIME: 12:46 Discharge Summary Admission/Discharge Info Admit Date/Time Aug 11, 2017 at 01:58 Discharge Date/Time Discharge Diagnosis staph aureus bacteremia, lung nodules, tracheal lesion, tinnitus, h/o breast cancer, end stage renal disease Patient Condition: Stable Consults nephrology, ID, vascular surgery, oncology, ENT Procedures 9.20 L shoulder XR IMPRESSION: Negative for evidence of acute fracture or dislocation of the left shoulder. Cause for left shoulder pain is not evident. Left lung base opacity is incompletely imaged. 9.20 CXR IMPRESSION: Negative for evidence of an acute chest process. Linear opacities at the right greater than left lung bases are unchanged from prior exam and may represent atelectasis or scar. 9.[address] IMPRESSION: Minimal inflammatory changes and enlargement of the left pectus musculature along the medial head of the clavicle and manubrium. Please correlate for infection in the region. Although no destructive osseous changes are seen, osteomyelitis of the clavicle cannot be entirely excluded. Subpleural lung nodules measuring up to 7 mm. Follow-up can be obtained as per flasher Society criteria. Low risk: CT at 3-[address] at 18-24 mos. High risk: CT at 3-[address] at 18-24 mos. Likely accessory thyroid tissue within the anterior midline neck which is partially visualized. Small nodular density within the posterior aspect of the proximal trachea on the right. Correlation with endoscopy is suggested. 9.22 MRI chest IMPRESSION: 1. There is focal soft tissue swelling inferior to the left sternoclavicular joint and deep to the pectoralis major muscle belly. The findings are nonspecific and could represent nonspecific inflammatory process or a phlegmon. No abscess is seen. 2. There is no evidence for osteomyelitis. 3. There are moderate degenerative changes of the left sternoclavicular joint. 9.22 US right upper extremity dialysis fistula CLINICAL INDICATION: Right upper extremity dialysis fistula malfunction. FINDINGS: There is a right upper extremity dialysis fistula which appears patent. The fistula appears to be between the right brachial artery and cephalic vein. Normal triphasic flow is present in the brachial artery. There is a region of approximately 50-70% stenosis in the outflow vein. IMPRESSION: 1. Patent right upper extremity dialysis fistula. 2. Approximately a 50-70% stenosis in the outflow vein. 9.25 US left upper extremity arterial system. CLINICAL INDICATION: Left upper extremity dialysis fistula malfunction. FINDINGS:The left brachial artery is widely patent with peak systolic velocity of 46 cm/sec. There is normal triphasic flow. There is a dialysis fistula which is completely thrombosed. IMPRESSION: 1. Patent left brachial artery. 2. Completely thrombosed dialysis fistula in the left arm. 9.[address] chest IMPRESSION: No CT evidence for pulmonary embolus. A 2.1 x 1.7 cm hyperenhancing lesion is identified associated with the thyroid cartilage in the midline which is unchanged in size since the prior CT study from 08/10/2017. This likely represents accessory thyroid tissue. Stable 8 mm soft tissue prominence along the right lateral aspect of the trachea , as above. Endoscopy is recommended for further evaluation. Stable mild to moderate cardiomegaly. Stable mild soft tissue prominence around the medial head of the left clavicle. This is nonspecific and may be related to prior infection/inflammation among other etiologies. Clinical correlation is recommended. 9.30 tagged WBC scan IMPRESSION: No definite abnormal focal areas of increased activity. 10.1 MRI brain IMPRESSION: 1. No evidence of acute intracranial pathology. 2. Several small foci of increased T2 weighted/FLAIR signal intensity are seen primarily in the deep white matter, nonspecific in appearance though perhaps reflective of complicated migraines, hypertensive microvascular ischemic disease , or sequela from prior traumatic or inflammatory insults. 3. The brain is otherwise normal in appearance. LABS CA 15-3: 11 (wnl) CA 27-9: 20 (wnl) MICRO 9.20 and 9.21 blood cultures MSSA 9.22, 9.23 blood cultures no growth TSH nl Hx of Present Illness Chief complaint: Left shoulder pain for 1 week This is a 61-year-old female presents here in emergency department for complaints of left shoulder pain for one week now. Patient describes the pain sharp pain, radiates from her left shoulder to the left arm, left neck area and left chest area. Patient was given pressures and for naproxen and baclofen, was in a different emergency department 2 days ago, had CT cervical spine done, also had x-rays done but did not bring that resolved. Patient denies any numbness or tingling. Patient does complain of chills but denies any fever. Patient denies any other symptoms. Patient has history of renal insufficiency, is currently on dialysis Eduard Wednesday Jeff Allergies: Adhesive tape Medications: See JAN Hospital Course 61 yo F with h/o ESRD on HD, DM2 presents with several days of painful swelling of proximal L clavicle and chills with HD. Pt found to have S. Aureus bacteremia , MRI imaging of chest non specific but not consistent with OM. For this L clavicular prominence, pt underwent onc eval at vascular's request given pt's h/ o breast ca. Onc advised outpatient f/u with her regular oncologist for PET CT. For MSSA bacteremia, pt treated with 2 total weeks of antimicrobials (final 2 days will be completed in the outpatient setting). Bacteremia source never fully elucidated. Vascular saw patient given her graft, no evidence of graft infection per vascular. Imaging with incidental finding of thyroid lesion and tracheal mass. ENT saw pt and advised biopsy which pt refused. Imaging with incidental lung nodule findings. Pt advised to discuss repeat imaging with PCP. Pt c/o tinnitus. Thought to be possibly 2/2 vanc pt was initially getting for her bacteremia. Neuroimaging unremarkable. Pt to discuss with ENT. copy of summary faxed to PCP and given to patient prior to discharge Home Meds Active Scripts Linezolid* (Zyvox*) 600 Mg Tablet, 600 MG PO BID for 2 Days, #4 TAB Prov:SUPRIYA BROWN MD 08/23/17 Hydrocodone/Acetaminophen ([place] 10-325 Tablet) 1 Each Tablet, 1 TAB PO Q6H Y for PAIN, #7 TAB Prov:MUSA SENIOR MD 03/30/17 Sevelamer Hcl* (Renagel*) 800 Mg Tablet, 3200 MG PO WITH MEALS for 30 Days, TAB Prov:MACIE TAVARES NP 09/13/16 Reported Medications Loratadine* (Loratadine*) 10 Mg Tablet, 10 MG PO DAILY, #30 TAB 03/30/17 Metoprolol Tartrate* (Lopressor*) 25 Mg Tab, 25 MG PO DAILY, #60 TAB 09/09/16 Follow-up Plan There are several specialists with which you will need to follow up -ENT: Dr Garnett for the lesion/mass in your trachea Office Address [address] [place] [address] [place] [address] Office -Infectious disease/Dr Lowe for your bloodstream infection Office Address [address] [place], [place] [address]an[address] [address] [place] [address] Office Follow up with your oncologist Dr Galeano to arrange for an outpatient PET/CT scan to follow up on your clavicle lesion Primary Office [facility] [address] [place], [place] [address] Secondary Office [facility] [address] [facility] [place], [place] [address] Your regular doctor the small spots seen in your lung. You will need a repeat CT scan in a few months to make sure these spots do not change. If they get bigger, the concern is they might be cancerous. Primary Care Provider Dr Gina Hong [address] [address] Time spent on discharge: > 30 minutes Copies To: CC: WANDA LOWE MD; CELINA GARNETT MD; TORRI JACOBSON ELLEN MD Aug 23, 2017 12:46
--- NOTE | 2017-08-23 12:46 | PDOCDIS ---
Discharge Instructions CONDITION Patient Condition: Stable HOME CARE INSTRUCTIONS: Special Diet: RENAL DIET FOLLOW UP/APPOINTMENTS Follow-up Plan There are several specialists with which you will need to follow up -ENT: Dr Nelson for the lesion/mass in your trachea Office Address [address] [facility] [address] [place] [address] Office -Infectious disease/Dr Zepeda for your bloodstream infection Office Address [address] [place] [address] Office Follow up with your oncologist Dr Galeano to arrange for an outpatient PET/CT scan to follow up on your clavicle lesion Primary Office [facility] [address] [place], [place] [address] Secondary Office [facility] [address] [place], [place] [address] Your regular doctor the small spots seen in your lung. You will need a repeat CT scan in a few months to make sure these spots do not change. If they get bigger, the concern is they might be cancerous. SUPRIYA BROWN MD Aug 23, 2017 12:45
[2017-08-23 14:15] VITALS: BP 110/70
--- NOTE | 2017-08-23 14:28 | CONS ---
Date/Time of Note Date/Time of Note DATE: 08/23/17 TIME: 14:27 Assessment/Plan Assessment/Plan Chief Complaint/Hosp Course SUBJECTIVE DATA: No acute events overnight. Patient is alert, feels good, no fevers INDWELLINGS: left upper extremity AV fistula. ANTIMICROBIALS: Ancef, s/p Rocephin status post vancomycin, total antibiotics day number 12. DIAGNOSTICS: WBC labeled nuclear scan revealed no definite abnormal focal areas of increased activity. Brain MRI revealed no acute intracranial pathology. OBJECTIVE DATA: GENERAL: This is a well-nourished, well-developed, elderly [place] woman, who is alert, in no distress. HEENT: Head atraumatic, normocephalic. Sclerae anicteric. Buccal mucosa pink. NECK: Supple. CHEST: Rise symmetrical. Breath sounds diminished at the bases. HEART: S1, S2. ABDOMEN: Soft, bowel sounds present. EXTREMITIES: Without cyanosis. ASSESSMENT: 1. Oxacillin-sensitive Staph aureus bacteremia on admission with repeat blood cultures being negative, WBC labeled nuclear scan negative. 2D echo revealed no vegetations. 2. End-stage renal disease, hemodialysis dependent. 3. Inflammatory findings of left sternoclavicular joint per MRI, no evidence of osteomyelitis per orthopedic consultation, again WBC labeled nuclear scan negative. 4. Anemia. 5. Hypertension. 6. Questionable thyroid mass and right-sided small tracheal lesion per MRI, with recommendations of ultrasound fine-needle aspiration per ENT. PLAN: Patient remains stable. Pending dc planning, complete abx for couple more days Problems: Consultation Date/Type/Reason Admit Date/Time Aug 11, 2017 at 01:58 Type of Consultation: ID Referring Provider: MARCELLO ARANDA Exam/Review of Systems Vital Signs Vitals Vital Signs Date Time Temp Pulse Resp B/P Pulse Ox O2 Delivery O2 Flow Rate FiO2 08/23/17 07:35 98.3 83 18 138/86 100 Intake and Output 08/22/17 08/22/17 08/23/17 15:00 23:00 07:00 Intake Total 500 ml 870 ml 250 ml Output Total 2500 ml Balance -2000 ml 870 ml 250 ml Results Result Diagram: 08/22/17 1140 08/20/17 0519 Medications Medications Current Medications Ondansetron HCl (Zofran Inj) 4 mg Q6H PRN IV NAUSEA AND/OR VOMITING; Start at 02:30 Acetaminophen (Tylenol Tab) 650 mg Q6H PRN PO PAIN LEVEL 1-3 OR FEVER; Start at 02:30 Docusate Sodium (Colace) 100 mg Q12H PRN PO CONSTIPATION Last administered on 21:16; Admin Dose 100 MG; Start 08/11/17 at 02:30 Bisacodyl (Dulcolax) 5 mg DAILY PRN PO CONSTIPATION Last administered on 08:40; Admin Dose 5 MG; Start 08/11/17 at 02:30 Morphine Sulfate (morphine) 2 mg Q4H PRN IV PAIN LEVEL 1-5; Start 08/11/17 at 02:30 Acetaminophen/ Hydrocodone Bitart ([place] (10/325)) 1 tab Q6H PRN PO PAIN Last administered on 08/13/17 08:48; Admin Dose 1 TAB; Start 08/12/17 at 11:00 Loratadine (Claritin) 10 mg DAILY PO Last administered on 08/23/17 09:06; Admin Dose 10 MG; Start 08/12/17 at 11:00 Metoprolol Tartrate 25 mg 25 mg DAILY PO Last administered on 08/23/17 09:07; Admin Dose 25 MG; Start 08/12/17 at 11:00 Cefazolin Sodium/ Dextrose (Ancef 2 Gm/50 ml (Pmx)) 50 ml @ 100 mls/hr Q24H IVPB Last administered on 08/22/17 17:43; Admin Dose 100 MLS/HR; Start at 18:00 MORIAH PRUETT NP Aug 23, 2017 14:28
[2017-08-23] MEDS: CEFAZOLIN 2 GM/50 ML (PMX) 50 ML IVPB SCH (17:00)
[2017-08-23 20:04] VITALS: BP 125/83; RESP 18
[2017-08-24] VITALS (13 sets, daily range): BP systolic 100–124; BP diastolic 1–72; PULSE 78–98; RESP 19–20
[2017-08-24] MEDS: METOPROLOL 25 MG TAB PO SCH (08:03)
[2017-08-24] MEDS: LORATADINE 10 MG TAB PO SCH (08:09)
[2017-08-24] MEDS: SEVELAMER 800 MG TAB PO SCH ×5 (08:09→20:04)
--- NOTE | 2017-08-24 10:39 | PN ---
DATE: 08/24/2017 SUBJECTIVE: The patient is stable, no acute events overnight. The patient is scheduled for hemodia lysis today. OBJECTIVE: VITAL SIGNS: Blood pressure 124/69, temperature 98.8, pulse 86, respirations 20. HEENT: Head is normocephalic. NECK: Supple. HEART: Regular rate. LUNGS: Show diminished breath sounds at base. ABDOMEN: Soft, nontender to palpation. No rebound or guarding. EXTREMITIES: Negative for clubbing, cyanosis, edema. DERMATOLOGIC: No rashes. MUSCULOSKELETAL: No joint effusions. NEUROLOGIC: No change in exam. MEDICATIONS: The patient's medications have been reviewed. LABORATORY DATA: Shows white count 13.9, hemoglobin 8.0, hematocrit 24.3, platelet count is 334. ASSESSMENT AND PLAN: 1. End-stage renal disease. Plan for hemodialysis today. 2. Anemia. Monitor hemoglobin and hematocrit levels. Will give Epogen as needed. 3. Hyponatremia, improved. 4. Hypertension. Continue current blood pressure regimen. 5. Sepsis, bacteremia. Patient completing antibiotic course. 6. Clavicular pain. Etiology is unclear. 7. Tracheal randolph. Follow up with ENT. Dictated By: TORRI SCOTT/OMAR Conf#: [id number] DID#: [id number]
[2017-08-24 11:49] LABS: BASOPHIL # 0.1 10^3/ul (0.0-0.1); BASOPHILS % 1.1 % (0.0-2.0); EOSINOPHILS # 0.9 10^3/ul (0.0-0.5); EOSINOPHILS % 7.6 % (0.0-7.0); HEMATOCRIT 23.8 % (37.0-47.0); HEMOGLOBIN 7.7 g/dl (12.0-16.0); LYMPHOCYTES # 2.1 10^3/ul (0.8-2.9); LYMPHOCYTES % 18.1 % (15.0-51.0); MEAN CORPUSCULAR HEMOGLOBIN 31.3 pg (29.0-33.0); MEAN CORPUSCULAR HGB CONC 32.4 g/dl (32.0-37.0); MEAN CORPUSCULAR VOLUME 96.7 fl (82.0-101.0); MEAN PLATELET VOLUME 9.2 fl (7.4-10.4); MONOCYTE # 0.9 10^3/ul (0.3-0.9); MONOCYTES % 7.9 % (0.0-11.0); NEUTROPHIL # 7.7 10^3/ul (1.6-7.5); NEUTROPHILS % 64.6 % (39.0-77.0); PLATELET COUNT 309 10^3/UL (140-415); RED BLOOD COUNT 2.46 10^6/ul (4.20-5.40); RED CELL DISTRIBUTION WIDTH 13.3 % (11.5-14.5); WHITE BLOOD COUNT 11.8 10^3/ul (4.8-10.8)
[2017-08-24] MEDS: CEFAZOLIN 2 GM/50 ML (PMX) 50 ML IVPB SCH (17:29)
--- NOTE | 2017-08-24 17:33 | QN ---
Documentation Comment Chart reviewed. talked to CM. Discharge hold up is insurance company hasn't yet said if they will approve Zyvox. Regardless, pt will complete abx with AM dose tomorrow and then can be discharged. SUPRIYA BROWN MD Aug 24, 2017 17:33
[2017-08-25 03:42] VITALS: BP 93/60; RESP 18
[2017-08-25 05:37] LABS: BASOPHIL # 0.2 10^3/ul (0.0-0.1); BASOPHILS % 1.5 % (0.0-2.0); EOSINOPHILS # 0.9 10^3/ul (0.0-0.5); EOSINOPHILS % 8.1 % (0.0-7.0); HEMATOCRIT 26.3 % (37.0-47.0); HEMOGLOBIN 8.2 g/dl (12.0-16.0); LYMPHOCYTES # 2.4 10^3/ul (0.8-2.9); LYMPHOCYTES % 20.4 % (15.0-51.0); MEAN CORPUSCULAR HEMOGLOBIN 29.9 pg (29.0-33.0); MEAN CORPUSCULAR HGB CONC 31.2 g/dl (32.0-37.0); MONOCYTE # 0.9 10^3/ul (0.3-0.9); MONOCYTES % 7.8 % (0.0-11.0); NEUTROPHIL # 7.1 10^3/ul (1.6-7.5); NEUTROPHILS % 61.4 % (39.0-77.0); PLATELET COUNT 284 10^3/UL (140-415); RED BLOOD COUNT 2.74 10^6/ul (4.20-5.40); RED CELL DISTRIBUTION WIDTH 13.4 % (11.5-14.5); WHITE BLOOD COUNT 11.6 10^3/ul (4.8-10.8)
[2017-08-25 08:06] VITALS: BP 94/58; PULSE 87
[2017-08-25] MEDS: METOPROLOL 25 MG TAB PO SCH (08:13)
[2017-08-25] MEDS: LORATADINE 10 MG TAB PO SCH (08:13)
[2017-08-25] MEDS: SEVELAMER 800 MG TAB PO SCH ×3 (08:13→17:21)
--- NOTE | 2017-08-25 09:21 | DS ---
Date/Time of Note Date/Time of Note DATE: 08/25/17 TIME: 09:18 Discharge Summary Admission/Discharge Info Admit Date/Time Aug 11, 2017 at 01:58 Discharge Date/Time Discharge Diagnosis staph aureus bacteremia, lung nodules, tracheal lesion, tinnitus, h/o breast cancer, end stage renal disease Patient Condition: Stable Consults ID, nephrology, oncology, vascular surgery, orthopedics ,ENT Procedures TTE 9.21 Conclusions 1. Normal left ventricular systolic function. Normal left ventricular cavity size. Mild concentric left ventricular hypertrophy. Ejection fraction is visually estimated at 60 %. Tissue Doppler/Mitral Doppler indices are consistent with impaired relaxation (Stage I diastolic dysfunction). 2. Normal appearance and function of the mitral valve with trace physiologic regurgitation. 3. Normal appearance of the tricuspid valve. Estimated peak PA systolic pressure 36 mmHg. There is mild tricuspid regurgitation. 9.20 L shoulder XR IMPRESSION: Negative for evidence of acute fracture or dislocation of the left shoulder. Cause for left shoulder pain is not evident. Left lung base opacity is incompletely imaged. 9.20 CXR IMPRESSION: Negative for evidence of an acute chest process. Linear opacities at the right greater than left lung bases are unchanged from prior exam and may represent atelectasis or scar. 9.[address] IMPRESSION: Minimal inflammatory changes and enlargement of the left pectus musculature along the medial head of the clavicle and manubrium. Please correlate for infection in the region. Although no destructive osseous changes are seen, osteomyelitis of the clavicle cannot be entirely excluded. Subpleural lung nodules measuring up to 7 mm. Follow-up can be obtained as per flasher Society criteria. Low risk: CT at 3-[address] at 18-24 mos. High risk: CT at 3-[address] at 18-24 mos. Likely accessory thyroid tissue within the anterior midline neck which is partially visualized. Small nodular density within the posterior aspect of the proximal trachea on the right. Correlation with endoscopy is suggested. 9.22 MRI chest IMPRESSION: 1. There is focal soft tissue swelling inferior to the left sternoclavicular joint and deep to the pectoralis major muscle belly. The findings are nonspecific and could represent nonspecific inflammatory process or a phlegmon. No abscess is seen. 2. There is no evidence for osteomyelitis. 3. There are moderate degenerative changes of the left sternoclavicular joint. 9.22 US right upper extremity dialysis fistula CLINICAL INDICATION: Right upper extremity dialysis fistula malfunction. FINDINGS: There is a right upper extremity dialysis fistula which appears patent. The fistula appears to be between the right brachial artery and cephalic vein. Normal triphasic flow is present in the brachial artery. There is a region of approximately 50-70% stenosis in the outflow vein. IMPRESSION: 1. Patent right upper extremity dialysis fistula. 2. Approximately a 50-70% stenosis in the outflow vein. 9.25 US left upper extremity arterial system. CLINICAL INDICATION: Left upper extremity dialysis fistula malfunction. FINDINGS:The left brachial artery is widely patent with peak systolic velocity of 46 cm/sec. There is normal triphasic flow. There is a dialysis fistula which is completely thrombosed. IMPRESSION: 1. Patent left brachial artery. 2. Completely thrombosed dialysis fistula in the left arm. 9.[address] chest IMPRESSION: No CT evidence for pulmonary embolus. A 2.1 x 1.7 cm hyperenhancing lesion is identified associated with the thyroid cartilage in the midline which is unchanged in size since the prior CT study from 08/10/2017. This likely represents accessory thyroid tissue. Stable 8 mm soft tissue prominence along the right lateral aspect of the trachea , as above. Endoscopy is recommended for further evaluation. Stable mild to moderate cardiomegaly. Stable mild soft tissue prominence around the medial head of the left clavicle. This is nonspecific and may be related to prior infection/inflammation among other etiologies. Clinical correlation is recommended. 9.30 tagged WBC scan IMPRESSION: No definite abnormal focal areas of increased activity. 10.1 MRI brain IMPRESSION: 1. No evidence of acute intracranial pathology. 2. Several small foci of increased T2 weighted/FLAIR signal intensity are seen primarily in the deep white matter, nonspecific in appearance though perhaps reflective of complicated migraines, hypertensive microvascular ischemic disease , or sequela from prior traumatic or inflammatory insults. 3. The brain is otherwise normal in appearance. LABS CA 15-3: 11 (wnl) CA 27-9: 20 (wnl) MICRO 9.20 and 9.21 blood cultures MSSA 9.22, 9.23 blood cultures no growth Hx of Present Illness Chief complaint: Left shoulder pain for 1 week This is a 61-year-old female presents here in emergency department for complaints of left shoulder pain for one week now. Patient describes the pain sharp pain, radiates from her left shoulder to the left arm, left neck area and left chest area. Patient was given pressures and for naproxen and baclofen, was in a different emergency department 2 days ago, had CT cervical spine done, also had x-rays done but did not bring that resolved. Patient denies any numbness or tingling. Patient does complain of chills but denies any fever. Patient denies any other symptoms. Patient has history of renal insufficiency, is currently on dialysis Tuesday Allergies: Adhesive tape Medications: See JAN Hospital Course 61 yo F with h/o ESRD on HD, DM2 presents with several days of painful swelling of proximal L clavicle and chills with HD. Pt found to have S. Aureus bacteremia , MRI imaging of chest non specific but not consistent with OM. For this L clavicular prominence, pt underwent onc eval at vascular's request given pt's h/ o breast ca. Onc advised outpatient f/u with her regular oncologist for PET CT. For MSSA bacteremia, pt treated with 2 total weeks of antimicrobials. Bacteremia source never fully elucidated. Vascular saw patient given her graft, no evidence of graft infection per vascular. Imaging with incidental finding of thyroid lesion and tracheal mass. ENT saw pt and advised biopsy which pt refused. Imaging with incidental lung nodule findings. Pt advised to discuss repeat imaging with PCP. Pt c/o tinnitus. Thought to be possibly 2/2 vanc pt was initially getting for her bacteremia. Neuroimaging unremarkable. Pt to discuss with ENT. copy of summary faxed to PCP and given to patient prior to discharge Home Meds Active Scripts Linezolid* (Zyvox*) 600 Mg Tablet, 600 MG PO BID for 2 Days, #4 TAB Prov:SUPRIYA BROWN MD 08/23/17 Hydrocodone/Acetaminophen ([place] 10-325 Tablet) 1 Each Tablet, 1 TAB PO Q6H Y for PAIN, #7 TAB Prov:MUSA SENIOR MD 03/30/17 Sevelamer Hcl* (Renagel*) 800 Mg Tablet, 3200 MG PO WITH MEALS for 30 Days, TAB Prov:MACIE TAVARES NP 09/13/16 Reported Medications Loratadine* (Loratadine*) 10 Mg Tablet, 10 MG PO DAILY, #30 TAB 03/30/17 Metoprolol Tartrate* (Lopressor*) 25 Mg Tab, 25 MG PO DAILY, #60 TAB 09/09/16 Follow-up Plan There are several specialists with which you will need to follow up -ENT: Dr Garnett for the lesion/mass in your trachea Office Address [address] [place] [address] Office -Infectious disease/Dr Lowe for your bloodstream infection Office Address [address] [place] [address] Office Follow up with your oncologist Dr Galeano to arrange for an outpatient PET/CT scan to follow up on your clavicle lesion Primary Office [facility] [address] [place], [place] [address] Secondary Office [facility] [address] [place], [place] [address] Your regular doctor the small spots seen in your lung. You will need a repeat CT scan in a few months to make sure these spots do not change. If they get bigger, the concern is they might be cancerous. Primary Care Provider Dr Gina Hong [id number] [address] Time spent on discharge: > 30 minutes Pending Labs Laboratory Tests Test 08/24/17 11:00 08/25/17 05:09 White Blood Count 11.810^3/ul (4.8-10.8) 11.610^3/ul (4.8-10.8) Red Blood Count 2.4610^6/ul (4.20-5.40) 2.7410^6/ul (4.20-5.40) Hemoglobin 7.7g/dl (12.0-16.0) 8.2g/dl (12.0-16.0) Hematocrit 23.8% (37.0-47.0) 26.3% (37.0-47.0) Mean Corpuscular Volume 96.7fl (82.0-101.0) 96.0fl (82.0-101.0) Mean Corpuscular Hemoglobin 31.3pg (29.0-33.0) 29.9pg (29.0-33.0) Mean Corpuscular Hemoglobin Concent 32.4g/dl (32.0-37.0) 31.2g/dl (32.0-37.0) Red Cell Distribution Width 13.3% (11.5-14.5) 13.4% (11.5-14.5) Platelet Count 56227^3/UL (140-415) 30437^3/UL (140-415) Mean Platelet Volume 9.2fl (7.4-10.4) 9.0fl (7.4-10.4) Neutrophils % 64.6% (39.0-77.0) 61.4% (39.0-77.0) Lymphocytes % 18.1% (15.0-51.0) 20.4% (15.0-51.0) Monocytes % 7.9% (0.0-11.0) 7.8% (0.0-11.0) Eosinophils % 7.6% (0.0-7.0) 8.1% (0.0-7.0) Basophils % 1.1% (0.0-2.0) 1.5% (0.0-2.0) Nucleated Red Blood Cells % 0.0/100WBC (0.0-0.0) 0.0/100WBC (0.0-0.0) Neutrophils # 7.710^3/ul (1.6-7.5) 7.110^3/ul (1.6-7.5) Lymphocytes # 2.110^3/ul (0.8-2.9) 2.410^3/ul (0.8-2.9) Monocytes # 0.910^3/ul (0.3-0.9) 0.910^3/ul (0.3-0.9) Eosinophils # 0.910^3/ul (0.0-0.5) 0.910^3/ul (0.0-0.5) Basophils # 0.110^3/ul (0.0-0.1) 0.210^3/ul (0.0-0.1) Nucleated Red Blood Cells # 0.010^3/ul (0.0-0.0) 0.010^3/ul (0.0-0.0) Copies To: CC: WANDA LOWE MD; CELINA GARNETT MD; TORRI JACOBSON ELLEN MD Aug 25, 2017 09:21
--- NOTE | 2017-08-25 13:39 | PN ---
DATE: 08/25/2017 SUBJECTIVE: The patient is stable. No events overnight. No fevers, chills, nausea, vomiting. The patient had hemodialysis yesterday, tolerated well. OBJECTIVE: VITAL SIGNS: Blood pressure is 93/60, respiration 18, pulse 69, temperature 98.0. HEENT: Head is normocephalic. NECK: Supple. HEART: Regular rate. LUNGS: Show diminished breath sounds at base. ABDOMEN: Soft, nontender to palpation. No rebound or guarding. EXTREMITIES: Negative for clubbing, cyanosis, edema. DERMATOLOGIC: No rashes. MUSCULOSKELETAL: No joint effusions. NEUROLOGIC: No change in exam. MEDICATIONS: Have been reviewed. LABORATORY DATA: Has been reviewed. ASSESSMENT AND PLAN: 1. End-stage renal disease. Plan for dialysis tomorrow. 2. Anemia. Continue to monitor hemoglobin and hematocrit levels. Continue Epogen. 3. Hyponatremia, improved. 4. Hypertension. Continue current blood pressure regimen. 5. Sepsis bacteremia. The patient is currently on Zyvox. 6. Clavicular pain. Continue to monitor. 7. Tracheal mask, follow up with ENT. DISPOSITION: The patient is pending eventual discharge pending insurance approval. Dictated By: TORRI SCOTT/OMAR Conf#: [id number] DID#: [id number]
[2017-08-25 14:00] VITALS: BP 115/65; RESP 20
[2017-08-25] MEDS: CEFAZOLIN 2 GM/50 ML (PMX) 50 ML IVPB SCH (17:21)
== END 2017-08-25 18:40 | disposition home or self-care (01) | DRG 871 ==
LOC: FTE 18:39 → MS3 08-11 01:58 → PP2 08-11 20:59
PROVIDERS: ADMIT Family Medicine; ATTEND Family Medicine
PROC: 5A1D70Z Performance of Urinary Filtration, Intermittent, Less than 6 Hours Per Day (ICD-10-PCS; principal; 2017-08-12)
DX: A41.01 Sepsis due to Methicillin susceptible Staphylococcus aureus (principal); N18.6 End stage renal disease; I12.0 Hypertensive chronic kidney disease with stage 5 chronic kidney disease or end stage renal disease; M10.9 Gout, unspecified; D63.1 Anemia in chronic kidney disease; E11.9 Type 2 diabetes mellitus without complications; E04.1 Nontoxic single thyroid nodule; E87.6 Hypokalemia; H93.11 Tinnitus, right ear; H92.02 Otalgia, left ear; R91.8 Other nonspecific abnormal finding of lung field; Z99.2 Dependence on renal dialysis; Z85.3 Personal history of malignant neoplasm of breast; R22.2 Localized swelling, mass and lump, trunk; M60.812 Other myositis, left shoulder; Z16.39 Resistance to other specified antimicrobial drug; M25.512 Pain in left shoulder; D64.9 Anemia, unspecified; J39.8 Other specified diseases of upper respiratory tract
CPT/HCPCS: 36415; 70551; 71010; 71250; 71275; 71550; 73030; 78806; 80048; 80053; 80061; 80202; 82550; 82553; 83036; 83605; 83735; 84100; 84443; 84484; 84560; 85025; 85610; 85651; 85730; 86140; 86300; 87040; 90935; 93005; 93306; 93931; 96374; 96375; 96376; A9570; J0690; J0692; J0696; J1170; J1644; J1956; J2270; J2405; J3370; J7050; Q9967

== ENCOUNTER 2018-05-02 06:14 | Day surgery (SDC) | END 2018-05-02 10:42 | disposition home or self-care (01) ==

== ENCOUNTER 2018-06-13 06:12 | Day surgery (SDC) | END 2018-06-13 12:15 | disposition home or self-care (01) ==